=== PATIENT | male | born 1935 | race Hispanic/Latino ===

== ENCOUNTER 2017-02-24 14:43 | Emergency (ER) | payer MEDICARE, BC ==
[2017-02-24 14:44] VITALS: BMI 23.3
[2017-02-24 15:12] VITALS: RESP 18; TEMP 98.6
[2017-02-24 15:53] LABS: BASO # 0.05 K/mm3 (0.0-2.0); BASO % 0.7 % (0.0-3.0); EOS # 0.1 (0.0-0.7); EOS % 1.9 % (1.5-5.0); GRAN # 5.74 (1.4-6.5); GRAN % 77.6 % (50.0-68.0); HEMATOCRIT 34.4 % (42.0-52.0); LYMPH # 0.9 (1.2-3.4); LYMPH % 12.4 % (22.0-35.0); MEAN CELL VOLUME 100.9 fl (80.0-105.0); MEAN CORPUSCULAR HEMOGLOBIN 31.7 pg (25.0-35.0); MEAN CORPUSCULAR HGB CONC 31.4 g/dl (31.0-37.0); MEAN PLATELET VOLUME 9.4 fl (7.0-11.0); MONO # 0.6 (0.1-0.6); MONO % 7.4 % (1.0-6.0); RED CELL DISTRIBUTION WIDTH 15.1 % (11.5-14.5); WHITE BLOOD COUNT 7.4 10^3/ul (4.5-11.0)
[2017-02-24 15:55] LABS: ALB/GLOB RATIO 1.4 (1.1-1.8); BILIRUBIN,TOTAL 0.7 mg/dL (0.2-1.3); CALCIUM 9.8 mg/dL (8.4-10.5); MAGNESIUM 2.1 mg/dL (1.7-2.2); POTASSIUM 3.8 mmol/L (3.6-5.0); TOTAL PROTEIN 6.8 g/dL (5.8-8.3)
--- NOTE | 2017-02-24 16:52 | ED PDOC ---
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 He denies numbness, weakness or tingling in the extremity. No fevers or chills. Denies dizziness, headache, or weakness. No chest pain or shortness of breath. No N/V and abdominal pain. PMD Cardiello (Ivett Louis PA-C) Past Medical History - Provider Review Nursing Documentation Reviewed: Yes - Infectious Disease Hx of Infectious Diseases: None - Tetanus Immunization Tetanus Immunization: Unknown - Cardiac Hx Pacemaker: No - Pulmonary Hx Chronic Obstructive Pulmonary Disease (COPD): Yes - Neurological Hx Paralysis: No - HEENT Other/Comment: BILATERAL [place] - Renal Date of Last Dialysis Treatment: 02/24/17 Hx Renal Failure: Yes (HD (M/W/F)) - Endocrine/Metabolic Hx Diabetes Mellitus Type 1: Yes - Hematological/Oncological Hx Blood Transfusions: No - Integumentary Other/Comment: dry and slightly discolored skin ble, buttocks slightly reddened - Musculoskeletal/Rheumatological Hx Musculoskeletal Disorders: Yes - Gastrointestinal Hx Gastrointestinal Disorders: Yes - Genitourinary/Gynecological Hx Genitourinary Disorders: No Hx Reproductive Disorders: No - Psychiatric Hx Emotional Abuse: No Hx Physical Abuse: No Hx Substance Use: No - Surgical History Hx Open Heart Surgery: Yes - Anesthesia Hx Anesthesia Reactions: Yes (CRYING & CONFUSION) Hx Malignant Hyperthermia: No - Suicidal Assessment Feels Threatened In Home Enviroment: No <Ivett Louis PA-C - Last Filed: 02/24/17 16:45> Family/Social History - Physician Review Nursing Documentation Reviewed: Yes Family/Social History: No Known Family HX Smoking Status: Former Smoker Hx Alcohol Use: No Hx Substance Use: No Hx Substance Use Treatment: No <Ivett Louis PA-C - Last Filed: 02/24/17 16:45> Allergies/Home Meds <Ivett Louis PA-C - Last Filed: 02/24/17 16:45> <Ok Nicolas - Last Filed: 02/25/17 21:35> Allergies/Adverse Reactions: Allergies No Known Allergies Allergy (Verified 02/24/17 15:05) Home Medications: Home Meds Medication Instructions Recorded Confirmed Aspirin [Aspirin Chewable] 81 mg PO Q4XW 07/11/16 02/24/17 Clopidogrel [Plavix] 75 mg PO DAILY 02/24/17 02/24/17 Insulin Glargine, Recombina 24 unit SC ACB 02/24/17 02/24/17 [Lantus] Insulin Lispro-HIGH [HumALOG HIGH] 0 units SC ACB 02/24/17 02/24/17 Isosorbide Mononitrate [Imdur] 60 mg PO DAILY 02/24/17 02/24/17 Renavite 1 tab PO DAILY 02/24/17 02/24/17 Sevelamer Carbonate [Renvela] 800 mg PO TID 02/24/17 02/24/17 Simvastatin [Zocor] 40 mg PO HS 02/24/17 02/24/17 Review of Systems - Review of Systems Constitutional: Normal. absent: Fatigue, Weight Change, Fevers Respiratory: Normal. absent: SOB, Cough, Sputum Cardiovascular: Normal. absent: Chest Pain, Palpitations, Edema Gastrointestinal: Normal. absent: Abdominal Pain, Vomiting, Appetite Changes Musculoskeletal: Normal, Arthralgias. absent: Back Pain, Neck Pain Skin: Normal. absent: Rash, Pruritis, Skin Lesions Neurological: Normal. absent: Headache, Dizziness, Focal Weakness <Ivett Louis PA-C - Last Filed: 02/24/17 16:45> Physical Exam <Ivett Louis PA-C - Last Filed: 02/24/17 16:45> <Ok Nicolas - Last Filed: 02/25/17 21:35> - Physical Exam Narrative Physical Exam (Text): 02/24/17 16:53 GENERAL APPEARANCE: Patient is awake, alert, oriented x 3, in no acute distress. SKIN: Warm, dry; (-) cyanosis. EYES: (-) conjunctival pallor. ENMT: Mucous membranes moist. NECK: (-) tenderness, (-) stiffness, (-) lymphadenopathy, (-) JVD. CHEST AND RESPIRATORY: (-) rash, (-) chest wall tenderness. Lungs: (-) rales , (-) rhonchi, (-) wheezes, (-) rub; breath sounds equal bilaterally. HEART AND CARDIOVASCULAR: (-) irregularity; (-) murmur, (-) gallop, (-) rub. ABDOMEN AND GI: Soft; (-) distention, (-) tenderness, (-) palpable pulsatile mass. EXTREMITIES: (-) tenderness, (+) FROM, (-) deformity; (-) edema, (-) calf tenderness, (+) distal sensation intact, (+) distal pulses. NEURO AND PSYCH: Mental status as above. Cranial nerves grossly intact; strength symmetric. 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 DDx: neuropathy, arthritis, vs tendonitis Plan : - Labs - EKG EKG: SB at 57 bpm, w/ LAD, incomplete LBBB, prolonged QT, (-) acute ST changes, as read by RIZWAN. Lab results reviewed and are stable from prior labs. Based on history, exam and diagnostic results plan will be for outpatient f/u. Patient notified of likely dx of neuropathy. Advsied to follow up with primary care physician in 1-2 days without fail. Return to the emergency room at any time for any new or worsening symptoms. Patient states he fully agrees with and understands discharge instructions. States that he agrees with the plan and disposition. Verbalized and repeated discharge instructions and plan. I have given the patient opportunity to ask any additional questions. (Ivett Louis PA-C) - Lab Interpretations Lab Results: 02/24/17 15:35 02/24/17 15:35 Lab Results 02/24/17 15:35: Sodium 141, Potassium 3.8, Chloride 97 L, Carbon Dioxide 32, Anion Gap 16, BUN 25 H, Creatinine 3.6 H, Est GFR ( Amer) 20, Est GFR ( Non-Af Amer) 16, Random Glucose 117 H, Calcium 9.8, Magnesium 2.1, Total Bilirubin 0.7, AST 40, ALT 39, Alkaline Phosphatase 123, Total Protein 6.8, Albumin 4.0, Globulin 2.8, Albumin/Globulin Ratio 1.4 02/24/17 15:35: WBC 7.4 D, RBC 3.41 L, Hgb 10.8 L, Hct 34.4 L, MCV 100.9, MCH 31.7, MCHC 31.4, RDW 15.1 H, Plt Count 142, MPV 9.4, Gran % 77.6 H, Lymph % ( Auto) 12.4 L, [place] % (Auto) 7.4 H, Eos % (Auto) 1.9, Baso % (Auto) 0.7, Gran # 5.74, Lymph # 0.9 L, [place] # 0.6, Eos # 0.1, Baso # 0.05 - 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 <Ivett Louis PA-C - Last Filed: 02/24/17 16:45> - PA / COLD MOLDING PRESS OPERATOR / Resident Statement / has reviewed & agrees with the documentation as recorded. <Ok Nicolas - Last Filed: 02/25/17 21:35> Disposition/Present on Arrival - Present on Arrival Any Indicators Present on Arrival: No History of DVT/PE: No History of Uncontrolled Diabetes: No Urinary Catheter: No History of Decub. Ulcer: No History Surgical Site Infection Following: None - Disposition Have Diagnosis and Disposition been Completed?: Yes Disposition Time: 16:45 Patient Plan: Discharge <Ivett Louis PA-C - Last Filed: 02/24/17 16:45> - Present on Arrival Any Indicators Present on Arrival: No History of DVT/PE: No History of Uncontrolled Diabetes: Yes Urinary Catheter: No History of Decub. Ulcer: No History Surgical Site Infection Following: None - Disposition Have Diagnosis and Disposition been Completed?: Yes Patient Plan: Discharge <Ok Nicolas - Last Filed: 02/25/17 21:35> - Disposition Diagnosis: Hand pain, right, Neuropathy Disposition: HOME/ ROUTINE Condition: STABLE Discharge Instructions (ExitCare): Peripheral Neuropathy (ED) Print Language: TELUGU Additional Instructions: Thank you for letting us take care of you today. You were treated for R hand pain, likely neuropathy. The emergency medical care you received today was directed at your acute symptoms. Take tylenol as needed for pain. Return to the Emergency Department if your symptoms worsen, do not improve, or if you have any other problems. Please contact your doctor in 2 days for re-evaluation and follow up. Bring any paperwork you were given at discharge with you along with any medications you are taking to your follow up visit. Our treatment cannot replace ongoing medical care by a primary care provider (PCP) outside of the emergency department. Thank you for allowing the [facility] team to be part of your care today. Referrals: Gustavo Garcia MD [Primary Care Provider] - Follow up with primary Forms: [facility] ([place])
[2017-02-24 18:43] VITALS: BP 156/81; PULSE 83; O2SAT 99
--- NOTE | 2017-02-25 09:44 | CARD ---
APPROVED REPORT EKG Measurement Heart [id number] <Conclusion> Sinus bradycardia Left axis deviation Incomplete left bundle branch block Abnormal QRS-T angle, consider primary T wave abnormality Prolonged QT Abnormal ECG
== END 2017-02-24 18:41 | disposition home or self-care (01) ==
LOC: ED 14:43
DX: M79.641 Pain in right hand (principal); G62.9 Polyneuropathy, unspecified

== ENCOUNTER 2017-06-18 15:03 | Inpatient (IN) | payer MEDICARE, BC ==
[2017-06-18 15:35] VITALS: BMI 26.6
[2017-06-18 16:31] LABS: BASO # 0.05 K/mm3 (0.0-2.0); BASO % 0.7 % (0.0-3.0); EOS # 0.2 (0.0-0.7); EOS % 2.1 % (1.5-5.0); GRAN # 5.09 (1.4-6.5); GRAN % 71.4 % (50.0-68.0); HEMOGLOBIN 12.3 g/dL (14.0-18.0); LYMPH # 1.1 (1.2-3.4); MEAN CELL VOLUME 105.7 fl (80.0-105.0); MEAN CORPUSCULAR HEMOGLOBIN 31.9 pg (25.0-35.0); MEAN CORPUSCULAR HGB CONC 30.2 g/dl (31.0-37.0); MONO # 0.7 (0.1-0.6); MONO % 9.8 % (1.0-6.0); RBC 3.85 10^6/uL (3.5-6.1); RED CELL DISTRIBUTION WIDTH 16.6 % (11.5-14.5); WHITE BLOOD COUNT 7.1 10^3/ul (4.5-11.0)
--- NOTE | 2017-06-18 17:26 | RAD ---
HISTORY: SOB COMPARISON: Chest x-ray performed 09/11/15 TECHNIQUE: Chest, one view. FINDINGS: Examination limited by habitus. LUNGS: Bibasilar atelectasis/ infiltrates. Mild pulmonary venous congestion. Please note that chest x-ray has limited sensitivity for the detection of pulmonary masses. PLEURA: No significant pleural effusion identified. No definite pneumothorax . CARDIOVASCULAR: Cardiomegaly. Atherosclerotic calcifications of the aorta. Median sternotomy wires. OSSEOUS STRUCTURES: Osseous demineralization. Degenerative changes. VISUALIZED UPPER ABDOMEN: Elevation of the right hemidiaphragm. OTHER FINDINGS: None. IMPRESSION: Median sternotomy wires. Cardiomegaly. Bibasilar atelectasis/infiltrates. Mild pulmonary venous congestion.
[2017-06-18 18:01] LABS: ALB/GLOB RATIO 1.2 (1.1-1.8); ALBUMIN 3.7 g/dL (3.0-4.8); CALCIUM 10.3 mg/dL (8.4-10.5)
[2017-06-18 18:12] LABS: TROPONIN I 0.06 ng/mL
--- NOTE | 2017-06-18 18:25 | ED PDOC ---
Arrival/HPI - General Chief Complaint: Shortness Of Breath Time Seen by Provider: 06/18/17 15:37 Historian: Patient - History of Present Illness Narrative History of Present Illness (Text): 06/18/17 16:17 A 81 year old male, whose past medical history includes , presents to the emergency department with no complaints. Per EMS, patient had shortness of breath at dialysis. Patient notes experiencing mild nonproductive cough, but denies any pain or shortness of breath. Also, patient notes having no clue as to why he is here in the ER. No PMD Past Medical History - Provider Review Nursing Documentation Reviewed: Yes - Infectious Disease Hx of Infectious Diseases: None - Tetanus Immunization Tetanus Immunization: Unknown - Cardiac Hx Pacemaker: No - Pulmonary Hx Chronic Obstructive Pulmonary Disease (COPD): Yes - Neurological Hx Paralysis: No - HEENT Other/Comment: BILATERAL [place] - Renal Date of Last Dialysis Treatment: 02/24/17 Hx Renal Failure: Yes (HD (M/W/F)) - Endocrine/Metabolic Hx Diabetes Mellitus Type 1: Yes - Hematological/Oncological Hx Blood Transfusions: No - Integumentary Other/Comment: dry and slightly discolored skin ble, buttocks slightly reddened - Musculoskeletal/Rheumatological Hx Musculoskeletal Disorders: Yes - Gastrointestinal Hx Gastrointestinal Disorders: Yes - Genitourinary/Gynecological Hx Genitourinary Disorders: No Hx Reproductive Disorders: No - Psychiatric Hx Emotional Abuse: No Hx Physical Abuse: No Hx Substance Use: No - Surgical History Hx Open Heart Surgery: Yes - Anesthesia Hx Anesthesia: Yes Hx Anesthesia Reactions: Yes (CRYING & CONFUSION) Hx Malignant Hyperthermia: No - Suicidal Assessment Feels Threatened In Home Enviroment: No Family/Social History - Physician Review Nursing Documentation Reviewed: Yes Family/Social History: No Known Family HX Smoking Status: Former Smoker Hx Alcohol Use: No Hx Substance Use: No Hx Substance Use Treatment: No Allergies/Home Meds Allergies/Adverse Reactions: Allergies No Known Allergies Allergy (Verified 06/18/17 19:15) Home Medications: Home Meds Medication Instructions Recorded Confirmed Aspirin [Aspirin Chewable] 81 mg PO Q4XW 07/11/16 06/18/17 Clopidogrel [Plavix] 75 mg PO DAILY 02/24/17 06/18/17 Insulin Glargine, Recombina 24 unit SC ACB 02/24/17 06/18/17 [Lantus] Insulin Lispro-HIGH [HumALOG HIGH] 0 units SC ACB 02/24/17 06/18/17 Isosorbide Mononitrate [Imdur] 60 mg PO DAILY 02/24/17 06/18/17 Renavite 1 tab PO DAILY 02/24/17 06/18/17 Sevelamer Carbonate [Renvela] 800 mg PO TID 02/24/17 06/18/17 Simvastatin [Zocor] 40 mg PO HS 02/24/17 06/18/17 Review of Systems - Physician Review All systems were reviewed & negative as marked: Yes - Review of Systems Constitutional: absent: Other (patient denies of any pain) Respiratory: absent: SOB Physical Exam Vital Signs Reviewed: Yes Vital Signs Temp Pulse Resp BP Pulse Ox 06/18/17 21:20 71 18 131/72 98 06/18/17 20:20 71 20 115/54 L 99 06/18/17 19:40 72 20 120/65 100 06/18/17 19:00 71 18 146/77 96 06/18/17 17:04 71 18 147/79 98 06/18/17 15:50 20 94 L 06/18/17 15:34 97.8 F 70 18 114/63 95 Temperature: Afebrile Blood Pressure: Normal Pulse: Regular Respiratory Rate: Normal Appearance: Positive for: Well-Appearing Pain Distress: None Mental Status: Positive for: Alert and Oriented X 3 - Systems Exam Head: Present: Atraumatic, Normocephalic Pupils: Present: PERRL Extroacular Muscles: Present: EOMI Conjunctiva: Present: Normal Mouth: Present: Moist Mucous Membranes Neck: Present: Normal Range of Motion Respiratory/Chest: Present: Rales (basis b/l) Cardiovascular: Present: Regular Rate and Rhythm, Normal S1, S2. No: Murmurs Abdomen: Present: Normal Bowel Sounds. No: Tenderness, Distention, Peritoneal Signs Back: Present: Normal Inspection Upper Extremity: Present: Normal Inspection. No: Cyanosis, Edema Lower Extremity: Present: Edema Neurological: Present: GCS=15, CN II-XII Intact, Speech Normal Skin: Present: Warm, Dry, Normal Color. No: Rashes Psychiatric: Present: Alert, Oriented x 3, Normal Insight, Normal Concentration Medical Decision Making ED Course and Treatment: 06/18/17 16:20 Impression: 81 year old male with no complaints. Physical exam shows rales at basis b/l and lower extremity edema. Plan: -- EKG -- Chest X-ray -- Labs -- Rapid Flu Test -- Reassess and disposition Prior Visits: Notes and results from previous visits were reviewed. Patient was last seen in the emergency department on 02/24/2017 for crampy pain to the right hand. Patient was d/c home. Progress Notes: 06/18/2017 17:24 Chest X-ray IMPRESSION: Median sternotomy wires. Cardiomegaly. Bibasilar atelectasis/infiltrates. Mild pulmonary venous congestion. Dictator: Sloane Monzon MD - Lab Interpretations Lab Results: 06/18/17 16:20 06/18/17 16:20 Lab Results 06/18/17 16:20: Influenza Typ A,B (EIA) Negative for flu a/b 06/18/17 16:20: Sodium 140, Potassium 4.4, Chloride 99, Carbon Dioxide 28, Anion Gap 18, BUN 17, Creatinine 3.3 H, Est GFR ( Amer) 22, Est GFR (Non- Af Amer) 18, Random Glucose 151 H, Calcium 10.3, Total Bilirubin 0.8, AST 32, ALT 43, Alkaline Phosphatase 143 H, Lactate Dehydrogenase 554, Total Creatine Kinase 66, Troponin I 0.06 D, NT-Pro-B Natriuret Pep 22408 H, Total Protein 6.7 , Albumin 3.7, Globulin 3.1, Albumin/Globulin Ratio 1.2 06/18/17 16:20: WBC 7.1, RBC 3.85, Hgb 12.3 L, Hct 40.7 L, MCV 105.7 H D, MCH 31.9, MCHC 30.2 L, RDW 16.6 H, Plt Count 113 L, MPV 10.0, Gran % 71.4 H, Lymph % (Auto) 16.0 L, [place] % (Auto) 9.8 H, Eos % (Auto) 2.1, Baso % (Auto) 0.7, Gran # 5.09, Lymph # 1.1 L, [place] # 0.7 H, Eos # 0.2, Baso # 0.05 I have reviewed the lab results: Yes - RAD Interpretation Radiology Orders: 06/18/17 15:50 CHEST PORTABLE [RAD] Stat - Medication Orders Current Medication Orders: Discontinued Medications Ceftriaxone Sodium (Rocephin 1 Gram Ivpb) 1 gm in 100 mls @ 200 mls/hr IVPB STAT STA PRN Reason: Protocol Stop: 06/18/17 19:11 Last Admin: 06/18/17 19:08 Dose: 200 mls/hr eMAR Start Stop Document 06/18/17 19:08 MEAL ATTENDANT (Rec: 06/18/17 19:09 MEAL ATTENDANT [id number]) Intravenous Solution Start Date 06/18/17 Start Time 19:09 End Date 06/18/17 End time 19:39 Total Infusion Time 30 Azithromycin (Zithromax 500mg In Ns) 500 mg in 250 mls @ 167 mls/hr IVPB STAT STA PRN Reason: Protocol Stop: 06/18/17 20:11 Last Admin: 06/18/17 21:31 Dose: 167 mls/hr eMAR Start Stop Document 06/18/17 21:31 YP (Rec: 06/18/17 21:31 YP [id number]) Intravenous Solution Start Date 06/18/17 Start Time 21:31 End Date 06/18/17 End time 23:01 Total Infusion Time 90 - Scribe Statement The provider has reviewed the documentation as recorded by the Carolyn Meehan Provider Scribe Attestation: All medical record entries made by the Scribaj were at my direction and personally dictated by me. I have reviewed the chart and agree that the record accurately reflects my personal performance of the history, physical exam, medical decision making, and the department course for this patient. I have also personally directed, reviewed, and agree with the discharge instructions and disposition. Disposition/Present on Arrival - Present on Arrival Any Indicators Present on Arrival: No History of DVT/PE: No History of Uncontrolled Diabetes: Yes Urinary Catheter: No History of Decub. Ulcer: No History Surgical Site Infection Following: None - Disposition Have Diagnosis and Disposition been Completed?: Yes Diagnosis: Community acquired pneumonia Disposition: HOSPITALIZED Disposition Time: 18:10 Condition: STABLE
[2017-06-18] MEDS ORDERED: Azithromycin 500MG/NS 250ml 500 MG/250 ML BAG IVPB STA (18:42)
[2017-06-18] MEDS ORDERED: cefTRIAXone 1 gm 1 GM/100 ML BAG IVPB STA (18:42)
--- NOTE | 2017-06-18 21:32 | CARD ---
APPROVED REPORT EKG Measurement Heart [id number] <Conclusion> Atrial Flutter with 3:1 conduction Left axis deviation Left bundle branch block Abnormal ECG
[2017-06-19] MEDS ORDERED: Influenza Vaccine 60 mcg/0.5 mL SYR (4YR UP) IM ONE (05:35)
[2017-06-19] MEDS ORDERED: Pneumococcal 23-Valent Vaccine IM ONE (06:01)
[2017-06-19 09:10] LABS: BASO # 0.04 K/mm3 (0.0-2.0); BASO % 0.5 % (0.0-3.0); EOS # 0.1 (0.0-0.7); EOS % 1.5 % (1.5-5.0); GRAN # 6.23 (1.4-6.5); GRAN % 75.3 % (50.0-68.0); HEMOGLOBIN 12.1 g/dL (14.0-18.0); LYMPH # 1.1 (1.2-3.4); LYMPH % 13.5 % (22.0-35.0); MEAN CELL VOLUME 108.5 fl (80.0-105.0); MEAN CORPUSCULAR HGB CONC 29.5 g/dl (31.0-37.0); MEAN PLATELET VOLUME 11.7 fl (7.0-11.0); MONO # 0.8 (0.1-0.6); MONO % 9.2 % (1.0-6.0); RBC 3.78 10^6/uL (3.5-6.1); RED CELL DISTRIBUTION WIDTH 16.7 % (11.5-14.5); WHITE BLOOD COUNT 8.3 10^3/ul (4.5-11.0)
[2017-06-19] MEDS ORDERED: Iohexol 350 MG/100 ML VIAL ONE (09:16)
[2017-06-19 09:26] LABS: ALB/GLOB RATIO 1.2 (1.1-1.8); ALBUMIN 3.8 g/dL (3.0-4.8); CALCIUM 10.3 mg/dL (8.4-10.5); MAGNESIUM 2.3 mg/dL (1.7-2.2)
[2017-06-19] MEDS ORDERED: Cefepime (Maxipime) 1 g Inj IVPB SCH (09:45)
[2017-06-19] MEDS ORDERED: Azithromycin 500MG/NS 250ml 500 MG/250 ML BAG IVPB SCH (10:00)
[2017-06-19] MEDS: Insulin Detemir 100 units/ml Vial (Levemir) SC SCH (10:00)
[2017-06-19] MEDS ORDERED: cefTRIAXone 1 gm 1 GM/100 ML BAG IVPB SCH (10:00)
--- NOTE | 2017-06-19 10:25 | CT ---
CT chest with IV contrast Indication: Abnormal chest x-ray Technique: Contiguous axial images were obtained through the chest with intravenous contrast enhancement. Sagittal and coronal reconstructions were generated and reviewed. This CT exam was performed using 1 or more of the following dose reduction techniques: Automated exposure control, adjustment of the MAA and/or kV according to patient size, and/or use of iterative reconstruction technique. IV Contrast: 100 mL Omnipaque 350 Radiation dose (DLP): 628.01 MGy-cm. Comparison: Chest x-ray performed 06/18/17, CT chest without contrast performed 08/19/15 Findings: Visualized portions of the inferior thyroid gland appear unremarkable. The mediastinal and hilar vascular structures appear within normal limits. Median sternotomy wires. Cardiomegaly. Dense coronary artery calcifications. Mediastinal and prevascular adenopathy measuring up to 2.1 cm in short axis (right pretracheal). No large central or segmental pulmonary embolus evident. Small bilateral pleural effusions and associated consolidations. Diffuse interstitial markings/thickening. No pneumothorax. Limited visualization of the upper abdomen: Cholelithiasis. Small perihepatic ascites. Sub cm mesenteric lymph nodes, nonspecific. Bilateral gynecomastia. Osseous demineralization. Degenerative changes. Impression: Cardiomegaly. Dense coronary artery calcifications. Mediastinal and prevascular adenopathy measuring up to 2.1 cm in short axis (right pretracheal). Small bilateral pleural effusions and associated consolidations. Diffuse interstitial markings/thickening ; correlate clinically. Limited visualization of the upper abdomen: Cholelithiasis. Small perihepatic ascites. Sub cm mesenteric lymph nodes, nonspecific. Bilateral gynecomastia.
[2017-06-19] MEDS: Cefepime 1gm in NS 100ml 1 GM/100 ML BAG IVPB SCH (11:16)
[2017-06-19] MEDS: guaiFENesin 600 mg ER Tab PO SCH ×2 (11:16→18:12)
--- NOTE | 2017-06-19 13:02 | HP ---
HISTORY OF PRESENT ILLNESS: An 81-year-old white male with history of end-stage renal disease, hypertension, COPD. The patient has had increasing shortness of breath and cough over the last 3 to 4 weeks, however, complaining with severe shortness of breath after dialysis treatment, was sent to the ER, was found to have possible pneumonia versus effusion and possible mass, severe COPD. The patient is afebrile. White count was normal, however, he was desaturating into the 80s in the emergency room, and he was admitted to the hospital. PHYSICAL EXAMINATION GENERAL: The patient is a well-developed, but thin white male with kyphoscoliosis, and visibly short of breath. The patient is awake and alert. He is hard of hearing. CHEST: Shows rhonchi and rales in all lung figueroa. Mild wheezing. HEART: Regular sinus rhythm. ABDOMEN: Benign. EXTREMITIES: Without cyanosis, clubbing, or edema. IMPRESSION: Pneumonia versus post obstructive changes, possible mass. CT is ordered. Intravenous antibiotics, bronchodilators and Pulmonary consult. Gustavo Garcia MD
[2017-06-19] MEDS ORDERED: Vancomycin 1gm in NS 250ml 1 GM/250 ML BAG IVPB STA (13:07)
[2017-06-19] MEDS: Insulin Lispro (HUMAlog) HIGH Coverage SC SCH (17:16)
[2017-06-19] MEDS: Multivitamin Vitamin B Complex (Nephro-Vite) Tab PO SCH (18:12)
[2017-06-19] MEDS: MethylPREDNISolone 40 mg Vial IVP SCH ×2 (18:19→23:38)
[2017-06-19] MEDS: Albuterol-Ipratrop 3 mg / 0.5 (3 ml) UD IH SCH (20:22)
[2017-06-19] MEDS: Acetylcysteine 20% Inhal Soln (4ml) IH SCH (20:22)
--- NOTE | 2017-06-19 23:48 | CON ---
DATE: 06/19/2017 The patient is seen earlier today in 573, bed 1. CHIEF COMPLAINT: Weakness times one day. HISTORY OF PRESENT ILLNESS: This is an 81-year-old male with past medical history significant for end-stage renal disease, on hemodialysis; hypertension; diabetes; coronary artery disease; chronic obstructive lung disease; smoker; and history of coronary artery bypass graft, admitted to the emergency room with a diagnosis of pneumonia, and Infectious Disease consultation requested. The patient had low-grade fevers. No chills. He has mild cough. No chest pain. Cough is nonproductive. No abdominal pain, diarrhea, or constipation. No dysuria or frequency. No headaches. PAST MEDICAL HISTORY: Significant for end-stage renal disease, on hemodialysis; chronic obstructive lung disease; hypertension; diabetes; coronary artery disease; and smoker. PAST SURGICAL HISTORY: Significant for coronary artery bypass graft. ALLERGIES: THE PATIENT HAS NO KNOWN ALLERGIES. MEDICATIONS: Include Zocor, Renvela, metoprolol, isosorbide, insulin, clopidogrel, and aspirin. PHYSICAL EXAMINATION: VITAL SIGNS: The patient is in bed with a temperature of 98, heart rate of 71, respiratory rate of 20, and blood pressure is 126/70. HEENT: Unremarkable. NECK: Supple. LUNGS: Have decreased breath sounds. HEART: Normal S1 and S2. ABDOMEN: Soft and nontender. LABORATORY DATA: The patient had a chest x-ray which revealed mediastinal sternotomy wires were seen, vascular congestion, atelectasis versus infiltrates. The patient also had a CAT scan of the chest which showed a small bilateral pleural effusion and associated consolidation, diffuse interstitial markings. The patient had an EKG, QTc is 485. ASSESSMENT AND PLAN: This is an 81-year-old male, end-stage renal disease, on hemodialysis; chronic obstructive lung disease; hypertension; diabetes; coronary artery disease; long time smoker, admitted to the emergency room with lots of weakness and shortness and breath, found to have positive bilateral healthcare-associated possible gram-positive cocci, possible gram-negative pernell pneumonia in a patient who is on hemodialysis, and we will treat the patient with IV vancomycin x1 dose, Maxipime 1 gm q.24, and doxycycline. We will order blood cultures, urine cultures, sputum cultures, and procalcitonin. We will make further recommendations. He will need 4 to 7 days of antibiotics. Leland MD [facility] # [id number]
[2017-06-20] MEDS: Acetylcysteine 20% Inhal Soln (4ml) IH SCH ×5 (01:22→17:44)
[2017-06-20] MEDS: Albuterol-Ipratrop 3 mg / 0.5 (3 ml) UD IH SCH ×5 (01:22→17:44)
[2017-06-20] MEDS: Insulin Lispro (HUMAlog) HIGH Coverage SC SCH ×4 (01:47→17:24)
--- NOTE | 2017-06-20 02:28 | CON ---
DATE: 06/19/2017 PULMONARY CONSULTATION REFERRING PHYSICIAN: Dr. Garcia. REASON FOR CONSULT: Chronic obstructive lung disease, cough, shortness of breath, pneumonia. HISTORY OF PRESENT ILLNESS: This is an 81-year-old gentleman with past medical history significant for chronic obstructive lung disease recently stopped smoking, renal failure, dialysis dependent while at dialysis developed increased shortness of breath but been short of breath for last few days with cough, sputum production. No hemoptysis, no hematemesis, no hematuria. No diarrhea reported. Denying any severe headache, no shaking chills. PAST MEDICAL HISTORY: Chronic obstructive lung disease, interstitial infiltrate, renal failure, dialysis dependent diabetes, history of open heart surgery. ALLERGIES: NONE KNOWN. SOCIAL HISTORY: Recently stopped smoking. Denied any alcohol use. FAMILY HISTORY: No significant cardiopulmonary disease reported. MEDICATIONS: He is on Ecotrin 81 mg daily, insulin coverage, Imdur 60 mg daily, Levemir 24 units subcu daily, Lipitor 20 mg at bedtime, metoprolol tartrate 25 mg twice a day, cefepime 1 gm IV q.24h., Mucinex LA 600 mg twice a day, Nephro vitamins daily, Plavix 75 mg daily, Renagel 800 mg three times a day, Solu-Medrol 40 mg q.6 hour added by me. REVIEW OF SYSTEMS: Not much headache, no rhinitis, but has a cough, sputum production. No chest pain. No abdominal pain. No dysuria. No leg pain or leg swelling. PHYSICAL EXAMINATION: GENERAL: Lying in the bed, has cough and shortness of breath, daughter is bedside. VITAL SIGNS: Temperature is 99, heart rate is 98, respiratory rate is 20, blood pressure 153/78, pulse ox 98% on 2 liters nasal cannula. HEENT: Moist mucous membranes. Crowded airway. Mallampati score is IV. NECK: Supple. No JVD. LUNGS: Have bilateral crackles, scattered rhonchi. HEART: S1 and S2. ABDOMEN: Soft, nontender. No organomegaly. EXTREMITIES: There is not much edema. NEUROLOGICAL: Awake, alert, very hard of hearing. Follows simple commands. LABORATORY DATA: Shows hemoglobin 12.1, hematocrit 41.0, WBC 8.3, platelet count is 147. Sed rate is 40. Sodium 140, potassium 5.1, chloride 98, bicarbonate 29, BUN 23, creatinine 4.5, glucose 166, calcium 10.3, phosphorus 4.2, magnesium 2.3, AST 26, ALT 35, alk phos is 134. C-reactive protein more than 15. Albumin is 3.8, procalcitonin 0.21. Influenza antibodies A and B are negative. Has a CAT scan of the chest done today, which shows cardiomegaly, dense coronary calcification, mediastinum perivascular adenopathy, 2.1 cm short axis, small bilateral pleural effusion associated consolidation, diffusion interstitial markings or thickening, cholelithiasis, small perihepatic ascites. IMPRESSION AND PLAN: Chronic obstructive lung disease with chronic interstitial infiltrate, hilar lymphadenopathy, renal failure dialysis dependent, diabetes, heart disease. We will suggest getting echocardiogram, reassess LV and RV function with pulmonary hypertension. There may be a component of sleep apnea syndrome, need to rule out oropharyngeal dysphagia. Spoke to the patient's daughter at bedside. All the questions answered. Continue antibiotics, add inhale an IV bronchodilator. Speech therapy evaluation. We will get proBNP and procalcitonin in the morning. Continue supplemental oxygen, gastric prophylaxis. SCD to lower extremities. Thank you and we will follow with you. Kathirne Mckeon MD
[2017-06-20] MEDS: MethylPREDNISolone 40 mg Vial IVP SCH ×3 (06:06→17:36)
[2017-06-20 11:04] LABS: GRAN # 6.81 (1.4-6.5); GRAN % 93.8 % (50.0-68.0); LYMPH # 0.4 (1.2-3.4); LYMPH % 6.1 % (22.0-35.0); MEAN CELL VOLUME 105.4 fl (80.0-105.0); MEAN CORPUSCULAR HEMOGLOBIN 31.4 pg (25.0-35.0); MEAN CORPUSCULAR HGB CONC 29.8 g/dl (31.0-37.0); MEAN PLATELET VOLUME 10.6 fl (7.0-11.0); MONO % 0.1 % (1.0-6.0); PLATELET COUNT 104 10^3/uL (120.0-450.0); RED CELL DISTRIBUTION WIDTH 16.5 % (11.5-14.5); WHITE BLOOD COUNT 7.3 10^3/ul (4.5-11.0)
--- NOTE | 2017-06-20 11:14 | PN ---
DATE: SUBJECTIVE: An 81-year-old white male on end-stage renal disease on hemodialysis, COPD, and CAD. The patient admitted with severe cough, shortness of breath, and congestion. CT shows chronic changes and pleural effusions, but no absolute mass. White count is 8.3. PHYSICAL EXAMINATION: GENERAL: The patient had a slight hallucinogenic episode this morning and refused hemodialysis, but he is going to hemodialysis today. VITAL SIGNS: Temperature is 97.8 and blood pressure is 156/66. CHEST: Shows rhonchi and rales in all lungs field anterior and posterior. HEART: Regular sinus rhythm. EXTREMITIES: No cyanosis, clubbing or edema. NEUROLOGIC: The patient is more awake and alert today is better. PLAN: Plan is to continue IV antibiotics, bronchodilator, and steroids. Gustavo Garcia MD
[2017-06-20 11:20] LABS: ALB/GLOB RATIO 1.2 (1.1-1.8); ALBUMIN 3.3 g/dL (3.0-4.8); CALCIUM 9.8 mg/dL (8.4-10.5); MAGNESIUM 2.2 mg/dL (1.7-2.2)
[2017-06-20 11:33] LABS: LYMPHOCYTE 8 % (22.0-35.0); NEUTROPHIL 92 % (50.0-70.0); PLATELET ESTIMATE NORMAL (NORMAL)
[2017-06-20] MEDS: Insulin Detemir 100 units/ml Vial (Levemir) SC SCH (15:09)
[2017-06-20] MEDS: Multivitamin Vitamin B Complex (Nephro-Vite) Tab PO SCH (15:56)
[2017-06-20] MEDS: Cefepime 1gm in NS 100ml 1 GM/100 ML BAG IVPB SCH (16:00)
[2017-06-20] MEDS: guaiFENesin 600 mg ER Tab PO SCH ×2 (16:00→17:24)
--- NOTE | 2017-06-20 17:59 | CP.PCM.PN ---
Subjective - Date & Time of Evaluation Date of Evaluation: 06/20/17 Time of Evaluation: 12:45 - Subjective Subjective: Comfortable, no fevers. Objective - Vital Signs/Intake and Output Vital Signs (last 24 hours): Temp Pulse Resp BP Pulse Ox 99.1 F 60 18 153/78 H 97 06/19/17 16:00 06/20/17 01:22 06/19/17 16:00 06/19/17 17:14 06/20/17 01:22 Intake and Output: 06/19/17 06/20/17 18:59 06:59 Intake Total 240 Balance 240 - Medications Medications: Current Medications Acetylcysteine (Acetylcysteine 20%) 4 ml IH [id number] [facility] Last Admin: 06/20/17 01:22 Dose: 4 ml Albuterol/Ipratropium (Duoneb 3 Mg/0.5 Mg (3 Ml) Ud) 3 ml IH [id number] [facility] Last Admin: 06/20/17 01:22 Dose: 3 ml Aspirin (Ecotrin) 81 mg PO DAILY [facility] Last Admin: 06/19/17 18:12 Dose: 81 mg Atorvastatin Calcium (Lipitor) 20 mg PO DIN [facility] Last Admin: 06/19/17 17:13 Dose: 20 mg Clopidogrel Bisulfate (Plavix) 75 mg PO DAILY [facility] Last Admin: 06/19/17 17:13 Dose: 75 mg Doxycycline Hyclate (Doryx) 100 mg PO Q12 [facility] PRN Reason: Protocol Last Admin: 06/19/17 21:55 Dose: 100 mg Guaifenesin (Mucinex La) 600 mg PO BID [facility] Last Admin: 06/19/17 18:12 Dose: 600 mg Cefepime HCl (Maxipime 1gm) 1 gm in 100 mls @ 200 mls/hr IVPB Q24H [facility] Last Admin: 06/19/17 11:16 Dose: 200 mls/hr Insulin Detemir (Levemir) 24 unit SC DAILY [facility] Last Admin: 06/19/17 10:00 Dose: Not Given Insulin Human Lispro (Humalog High) 0 units SC ACHS [facility] PRN Reason: Protocol Last Admin: 06/20/17 01:47 Dose: Not Given Isosorbide Mononitrate (Imdur) 60 mg PO DAILY [facility] Last Admin: 06/19/17 17:13 Dose: 60 mg Methylprednisolone (Solu-Medrol) 40 mg IVP Q6 [facility] Last Admin: 06/20/17 06:06 Dose: 40 mg Metoprolol Tartrate (Lopressor) 25 mg PO BRKDIN [facility] Last Admin: 06/19/17 17:14 Dose: 25 mg Sevelamer HCl (Renagel) 800 mg PO TID [facility] Last Admin: 06/19/17 21:55 Dose: 800 mg Vitamin B Complex/Vit C/Folic Acid (Nephro-Jarret) 1 tab PO DAILY [facility] Last Admin: 06/19/17 18:12 Dose: 1 tab - Labs Labs: 06/19/17 08:44 06/19/17 08:55 - Constitutional Appears: Non-toxic - Head Exam Head Exam: NORMAL INSPECTION - ENT Exam ENT Exam: Mucous Membranes Moist - Respiratory Exam Respiratory Exam: Decreased Breath Sounds - Cardiovascular Exam Cardiovascular Exam: +S1, +S2 - GI/Abdominal Exam GI & Abdominal Exam: Soft. absent: Tenderness Assessment and Plan - Assessment and Plan (Free Text) Plan: Assessment sepsis due to bilateral HCAP with possible gram positive cocci and/or gram negative bacilli S/P Severe sepsis probably secondary to HCAPi, clinically improved ESRD on HD HTN DM CAD S/P CABG COPD significant smoking history Plan given a dose of IV Vanco and continue Cefepime and Doxycycline day 2 follow up final culture results will continue to monitor clinically
--- NOTE | 2017-06-20 22:51 | CON ---
DATE: 06/20/2017 REASON FOR CONSULTATION: Shortness of breath, cough, need for dialysis. HISTORY OF PRESENTING ILLNESS: This is an 81-year-old male, known to me from outpatient hemodialysis, was sent to the emergency room after dialysis on Friday because of severe cough, shortness of breath, restlessness, agitation. In the emergency room, the patient was found to be hemodynamically stable. He had a CT scan of his chest which showed bilateral pneumonia, bilateral pleural effusions, diffuse interstitial markings. The patient is being treated with p.o., doxycycline 100 q.12, cefepime 1 gm daily. Consultation is requested for need for dialysis. PAST MEDICAL AND SURGICAL HISTORY: NIDDM, hypertension, ESRD, CAD, CHF, anemia of chronic kidney disease, secondary hyperparathyroidism, dementia. FAMILY HISTORY: Hypertension. SOCIAL HISTORY: No smoking, no alcohol use, no IV drug abuse. ALLERGIES: NO KNOWN DRUG ALLERGIES. CURRENT MEDICATIONS: Doxycycline 100 q.12 hours, DuoNeb, aspirin, Imdur 60, insulin, Lipitor 20, Lopressor 25 b.i.d., cefepime 1 gm daily, guaifenesin 600 b.i.d., Plavix 75, Renagel 800 t.i.d., Solu-Medrol 40 IV q.6. REVIEW OF SYSTEMS: All systems are reviewed, pertinent positives as mentioned in the history of presenting illness, rest unremarkable. PHYSICAL EXAMINATION: GENERAL: Elderly male, lying in bed in the dialysis unit. VITAL SIGNS: Blood pressure 156/66, heart rate 78, respiratory rate 20, and temperature 97.8. HEENT: Normocephalic, atraumatic, positive pallor, no icterus. NECK: Supple, no JVD. LUNGS: Bilateral equal air entry, bilateral equal expansion, decreased air entry at the bases. CARDIAC: S1 and S2, regular rate and rhythm, no murmur, no rub. ABDOMEN: Obese, distended, soft, nontender, bowel sounds present. EXTREMITIES: 3+ pitting edema of the lower extremities. INTAKE AND OUTPUT: Not charted. LABORATORY DATA: WBC 7.3, hemoglobin 11, hematocrit 36, platelets 104. Sodium 134, potassium 5.5, chloride 96, CO2 of 26, BUN 39, creatinine 5.9, glucose 339, calcium 9.8, phosphorus 5.0, magnesium 2.2, albumin 3.3. Influenza A and B EIA negative. ASSESSMENT: 1. Bilateral pneumonia. 2. Decompensated congestive heart failure. 3. Volume overload. 4. Cic-icllciy-jnhmbnxnd diabetes mellitus. 5. Hypertension. 6. Coronary artery disease. 7. Anemia of chronic kidney disease. PLAN: 1. The patient had stable dialysis today, 3 kg of fluid was removed. 2. The patient is still hypervolemic, we will arrange for him to have dry ultrafiltration tomorrow. 3. Continue antibiotics as per ID recommendations. 4. Monitor fingersticks. 5. Continue phosphate binders. Hyun Galarza MD
[2017-06-21] MEDS: Albuterol-Ipratrop 3 mg / 0.5 (3 ml) UD IH SCH ×4 (01:06→21:00)
[2017-06-21] MEDS: Acetylcysteine 20% Inhal Soln (4ml) IH SCH ×4 (01:06→21:00)
--- NOTE | 2017-06-21 01:14 | PN ---
DATE: 06/20/2017 REFERRING PHYSICIAN: Dr. Garcia. SUBJECTIVE: He is sitting up in the bed, still short of breath, cough, unable to clear pulmonary secretion, still waiting for speech therapy evaluation, tolerated BiPAP well. No nausea, no vomiting, no diarrhea, no leg pain or leg swelling. OBJECTIVE: GENERAL: Idtu-df-jfmtnzco distress secondary to cough and shortness of breath. VITAL SIGNS: Temperature is 98, heart rate is 69, respiratory rate is 20, blood pressure 133/61, pulse oximetry is 96% on nasal cannula. HEENT: Small oral cavity. Crowded airway. NECK: Supple. No JVD. LUNGS: Bilateral crackles and rhonchi. HEART: S1 and S2. ABDOMEN: Soft, nontender, no organomegaly. EXTREMITIES: There is no edema. NEUROLOGICAL: Awake, alert, follows simple commands. MEDICATIONS: Mucomyst 20% inhaled q. 6 hours, doxycycline 100 mg twice a day, DuoNeb q. 6 hours, Ecotrin 81 mg daily, insulin coverage, Imdur 60 mg daily, Levemir 24 subcutaneous daily, Lipitor 20 mg daily, metoprolol tartrate 25 mg twice a day, cefepime 1 gm IV q. 24 hours, Mucinex LA 600 mg twice a day, Nephro-Jarret vitamins daily, Plavix 75 mg daily, Renagel 800 mg three times a day, Solu-Medrol 40 mg q. 6 hours. LABORATORY DATA: Shows hemoglobin 11.0, hematocrit 36.9, WBC is 7.3, platelet is 104, sed rate is 40. Sodium 140, potassium 5.0, chloride 96, bicarbonate 26, BUN 39, creatinine 5.9, glucose 283, calcium is 9.8, phosphorus is 5.0, magnesium 2.2, AST 25, ALT 34, alkaline phosphatase is 114, albumin is 3.3, procalcitonin is 0.28. Influenza A and B is negative. Microbiology: Blood cultures, sputum cultures so far there is no growth. IMPRESSION AND PLAN: Chronic obstructive lung disease with chronic interstitial infiltrate, hilar adenopathy, renal failure dialysis dependent, diabetes, heart disease. Spoke to the nursing staff. Still waiting for Speech Therapy to evaluate, also waiting for echo to get right ventricular and left ventricular function. For now, keep head elevated at 45 degrees, continue intravenous inhaled bronchodilator, continue antibiotics, encourage BiPAP use at night. Gastric prophylaxis. Sequential compression device to lower extremities. Spoke to Speech Therapy. She will see the patient in the morning. Thank you, and we will follow with you. Kathrine Mckeon MD
[2017-06-21] MEDS: Insulin Lispro (HUMAlog) HIGH Coverage SC SCH (07:06)
[2017-06-21] MEDS: MethylPREDNISolone 40 mg Vial IVP SCH ×3 (07:07→12:14)
--- NOTE | 2017-06-21 11:59 | PN ---
DATE: An 81-year-old white male, who was sent from dialysis because of shortness of breath, asthmatic bronchitis versus bronchial pneumonia. The patient is afebrile. Vital sings are stable. He is on dialysis today. His blood sugars are elevated because of the steroids. He is receiving IV antibiotics, bronchodilators, and steroids. His lungs show some rhonchi bilaterally, but improved. He is less short of breath, less cough. Plan is to continue IV antibiotics and dialysis, and to start to taper steroids. Gustavo Garcia MD
[2017-06-21] MEDS: Insulin Reg-LOW-Coverage SC SCH ×3 (12:14→22:01)
[2017-06-21] MEDS: guaiFENesin 600 mg ER Tab PO SCH ×2 (12:18→17:44)
[2017-06-21] MEDS: Cefepime 1gm in NS 100ml 1 GM/100 ML BAG IVPB SCH (12:19)
[2017-06-21] MEDS: Multivitamin Vitamin B Complex (Nephro-Vite) Tab PO SCH (12:39)
--- NOTE | 2017-06-21 15:30 | CARD ---
APPROVED REPORT EXAM: Two-dimensional and M-mode echocardiogram with Doppler and color Doppler. INDICATION 2D DIMENSIONS Left Atrium (2D)3.9 (1.6-4.0cm)IVSd1.5 (0.7-1.1cm) LVDd5.0 (3.9-5.9cm)LVOT Diameter2.1 (1.8-2.4cm) PWd0.9 (0.7-1.1cm)LVDs4.5 (2.5-4.0cm) FS (%) 9.7 %LVEF (%)21.6 (>50%) M-Mode DIMENSIONS Left Atrium (MM)3.70 (2.5-4.0cm)Aortic Root3.80 (2.2-3.7cm) Aortic Cusp Exc.1.30 (1.5-2.0cm) Aortic Valve AoV Peak Eushgpaj165.0cm/sAoV VTI39.8cmAO Peak GR.13mmHg LVOT Peak Ubtmnpay08.4cm/sLVOT VTI13.90cmAO Mean GR.7mmHg HESHAM (VMAX)1.82iz5MVI (VTI)1.15bu2KS P 1/2 Dmci761wk Mitral Valve MV E Qpicuehj226.0cm/sMV A Oxzgnulo71.8cm/sE/A ratio2.0 TDI Lateral E' Peak V8.27cm/sMedial E' Peak V3.61cm/sE/Lateral E'13.7 E/Medial E'31.3 Tricuspid Valve TR Peak Ukhftewx801so/sRAP BIMUDPAZ85tmCsLO Peak Gr.62mmHg RVOZ05hsAb LEFT VENTRICLE The left ventricle is normal size. There is moderate concentric left ventricular hypertrophy. The systolic function is severely impaired. There is global hypokinesis of the left ventricle. Transmitral Doppler flow pattern is Grade II-pseudonormal filling dynamics. RIGHT VENTRICLE The right ventricle is mildly dilated. There is normal right ventricular wall thickness. RV Systolic function is severely reduced. ATRIA The left atrium size is normal. The right atrium size is normal. AORTIC VALVE The aortic valve is moderately calcified. There is mild aortic regurgitation. There is moderate valvular aortic stenosis. MITRAL VALVE The mitral valve is moderately thickened. Mitral regurgitation is trace. TRICUSPID VALVE There is severe pulmonary hypertension. GREAT VESSELS The aortic root is mildly enlarged. The IVC collapses <50% with inspiration. <Conclusion> The left ventricle is normal size. There is moderate concentric left ventricular hypertrophy. The systolic function is severely impaired. There is global hypokinesis of the left ventricle. Transmitral Doppler flow pattern is Grade II-pseudonormal filling dynamics. The aortic valve is moderately calcified.There is mild aortic regurgitation. There is moderate valvular aortic stenosis. There is severe pulmonary hypertension.
[2017-06-21] MEDS ORDERED: Insulin Detemir 100 units/ml Vial (Levemir) SC SCH (22:00)
[2017-06-21] MEDS ORDERED: MethylPREDNISolone 40 mg Vial IVP SCH (22:00)
--- NOTE | 2017-06-21 23:13 | PN ---
DATE: 06/21/2017 REFERRING PHYSICIAN: Dr. Garcia. SUBJECTIVE: He is lying in the bed, feels little better, tolerated BiPAP well. Speech therapy not appreciated, does have oropharyngeal dysphagia. Still has cough and shortness of breath. No nausea, no vomiting, no diarrhea. No leg pain or leg swelling. OBJECTIVE: GENERAL: In acute distress. VITAL SIGNS: Temperature is 98, heart rate is 68, respiratory rate is 20, blood pressure 134/66, pulse oximetry is 98% on nasal cannula. HEENT: Moist mucous membrane. Crowded airway. Mallampati score is IV. NECK: Supple. No JVD. LUNGS: Has crackles two third up, scattered rhonchi. HEART: S1 and S2. ABDOMEN: Soft, nontender. No organomegaly. EXTREMITIES: There is not very much edema. NEUROLOGICAL: Awake, alert. Follows simple commands. MEDICATIONS: He is on Mucomyst 20% inhaled q. 6 hours, doxycycline 100 mg twice a day, DuoNeb q. 6 hours, Ecotrin 81 mg daily, insulin coverage, Imdur 60 mg daily, insulin Levemir 30 units subcu at bedtime, Lipitor 20 mg daily, metoprolol tartrate 25 mg twice a day, cefepime 1 gm IV daily, Mucinex LA 600 mg twice a day, multivitamins daily, Plavix 75 mg daily, Renagel 800 mg three times a day, Solu-Medrol 40 mg q. 6 hours. LABORATORY DATA: Shows sodium is 134. Blood sugar this morning 316. Sputum has some yeast. Blood cultures have been negative. Echocardiogram reviewed, reports says right ventricle systolic pressure is over 70, severely decreased systolic function. IMPRESSION AND PLAN: Chronic obstructive lung disease; interstitial infiltrate, hilar adenopathy, renal failure, dialysis dependent, diabetes, severe heart failure, has an oropharyngeal dysphagia on modified diet. Need Cardiology consult. Beta enrique , need aggressive dialysis, may need to dialyze daily basis for few days. Gastric prophylaxis. Sequential compression device to lower extremity. Also need to optimize blood pressure care. Thank you and we will follow with you. Kathrine Mckeon MD
[2017-06-22] MEDS: Acetylcysteine 20% Inhal Soln (4ml) IH SCH ×4 (01:25→19:48)
[2017-06-22] MEDS: Albuterol-Ipratrop 3 mg / 0.5 (3 ml) UD IH SCH ×5 (01:26→23:38)
--- NOTE | 2017-06-22 02:49 | PN ---
DATE: 06/21/2017 SUBJECTIVE: The patient is in bed, in no acute distress, nontoxic, was seen earlier this morning. PHYSICAL EXAMINATION: VITAL SIGNS: Temperature is 97, blood pressure 130/60, respiratory rate of 18. HEENT: Unremarkable. NECK: Supple. LUNGS: Decreased breath sounds. HEART: Normal S1 and S2. ABDOMEN: Soft and nontender. LABORATORY DATA: Reveals a white count of 7.3. Microbiology is noted yeast in the urine. Chemistries are reviewed. Serology is noted. HIV is negative. The patient's procalcitonin is 0.28. ASSESSMENT AND PLAN: This is an 81-year-old male with ____ bilateral healthcare associated pneumonia, possible gram-positive cocci, possible gram-negative pernell in a patient with end-stage renal disease, on hemodialysis, hypertension, on intermittent vancomycin and Cefepime day #3. We would recommend 4 to 7 days of antibiotics. The patient is much improved. Leland Tao MD
[2017-06-22] MEDS ORDERED: Insulin Regular 1 UNITS/0.01 ML ML SC STA ×3 (04:29→06:26)
--- NOTE | 2017-06-22 04:29 | CP.PCM.PN ---
Subjective - Date & Time of Evaluation Date of Evaluation: 06/22/17 Time of Evaluation: 04:29 - Subjective Subjective: S: Nurse calls with FSBS 377 mg %. States that he took extra cookies that family member brought for him. We repeated FSBS which is 416 mg %. Medical record was reviewed. Patient has no complaints. O: Last Vital Signs 3 Temp 97.2 F L 06/21/17 16:00 Pulse 68 06/21/17 17:42 Resp 20 06/21/17 16:00 BP 134/66 06/21/17 17:42 Pulse Ox 98 06/21/17 16:00 Awake, alert. Not in distress. LUNGS:Normal breathing pattern. A:Hyperglycemia. P: Regular insulin 10 Units SC stat. Objective - Vital Signs/Intake and Output Vital Signs (last 24 hours): Temp Pulse Resp BP Pulse Ox 97.2 F L 68 20 134/66 98 06/21/17 16:00 06/21/17 17:42 06/21/17 16:00 06/21/17 17:42 06/21/17 16:00 - Medications Medications: Current Medications Acetylcysteine (Acetylcysteine 20%) 4 ml IH [id number] [facility] Last Admin: 06/22/17 01:25 Dose: 4 ml Albuterol/Ipratropium (Duoneb 3 Mg/0.5 Mg (3 Ml) Ud) 3 ml IH [id number] [facility] Last Admin: 06/22/17 01:26 Dose: 3 ml Aspirin (Ecotrin) 81 mg PO DAILY [facility] Last Admin: 06/21/17 12:18 Dose: 81 mg Atorvastatin Calcium (Lipitor) 20 mg PO DIN [facility] Last Admin: 06/21/17 17:42 Dose: 20 mg Clopidogrel Bisulfate (Plavix) 75 mg PO DAILY [facility] Last Admin: 06/21/17 12:18 Dose: 75 mg Doxycycline Hyclate (Doryx) 100 mg PO Q12 [facility] PRN Reason: Protocol Last Admin: 06/21/17 22:02 Dose: 100 mg Guaifenesin (Mucinex La) 600 mg PO BID [facility] Last Admin: 06/21/17 17:44 Dose: 600 mg Cefepime HCl (Maxipime 1gm) 1 gm in 100 mls @ 200 mls/hr IVPB Q24H [facility] Last Admin: 06/21/17 12:19 Dose: 200 mls/hr Insulin Detemir (Levemir) 30 unit SC HS [facility] Last Admin: 06/21/17 22:01 Dose: 30 unit Insulin Human Regular (Humulin R Low) 0 units SC ACHS [facility] PRN Reason: Protocol Last Admin: 06/21/17 22:01 Dose: 3 units Isosorbide Mononitrate (Imdur) 60 mg PO DAILY [facility] Last Admin: 06/21/17 12:18 Dose: 60 mg Losartan Potassium (Cozaar) 50 mg PO DAILY [facility] Methylprednisolone (Solu-Medrol) 40 mg IVP Q12 [facility] Last Admin: 06/21/17 22:02 Dose: 40 mg Metoprolol Tartrate (Lopressor) 25 mg PO BRKDIN [facility] Last Admin: 06/21/17 17:42 Dose: 25 mg Sevelamer HCl (Renagel) 800 mg PO TID [facility] Last Admin: 06/21/17 17:42 Dose: 800 mg Vitamin B Complex/Vit C/Folic Acid (Nephro-Jarret) 1 tab PO DAILY [facility] Last Admin: 06/21/17 12:39 Dose: 1 tab - Labs Labs: 06/20/17 10:45 06/20/17 10:45
[2017-06-22] MEDS: Insulin Reg-LOW-Coverage SC SCH (09:03)
[2017-06-22 09:50] LABS: ALB/GLOB RATIO 1.4 (1.1-1.8); ALBUMIN 3.9 g/dL (3.0-4.8); CALCIUM 10.3 mg/dL (8.4-10.5)
[2017-06-22] MEDS ORDERED: Insulin Detemir 100 units/ml Vial (Levemir) SC SCH (10:24)
--- NOTE | 2017-06-22 10:39 | PN ---
DATE: 06/21/2017 SUBJECTIVE: The patient is seen lying in bed. He is awake, he is alert, he is comfortable. He reports that he went for ultrafiltration earlier. He feels much better. PHYSICAL EXAMINATION: GENERAL: Elderly male lying in bed. VITAL SIGNS: Blood pressure 134/66, heart rate 68, respiratory rate 20, temperature 97.2. HEENT: Normocephalic, atraumatic. NECK: Supple, no JVD. LUNGS: Bilateral equal entry, bilateral equal expansion. CARDIAC: S1, S2. Regular rate and rhythm, no murmur, no rub. ABDOMEN: Obese, distended, soft, nontender, bowel sounds present. EXTREMITIES: 2+ pitting edema of the lower extremities. INTAKE AND OUTPUT: Not charted. LABORATORY DATA: No new labs. MEDICATIONS: Mucomyst, Cozaar, doxycycline 100 q. 12 hours, DuoNeb, Ecotrin, insulin, Imdur, Levemir, Lipitor, Lopressor, Maxipime 1 g, Mucinex, Plavix, Renagel, and Solu-Medrol. ASSESSMENT AND PLAN: 1. Bilateral pneumonia. 2. Decompensated congestive heart failure. 3. Gmk-wusplgy-ivpiqxszx diabetes mellitus. 4. Hypertension. 5. End-stage renal disease. PLAN: 1. Continue antibiotics. 2. Continue to ultrafiltrate as needed, extra treatments. 3. Monitor fingersticks. 4. Physical therapy. Hyun Galarza MD
[2017-06-22] MEDS: guaiFENesin 600 mg ER Tab PO SCH ×2 (10:53→17:59)
[2017-06-22] MEDS: Cefepime 1gm in NS 100ml 1 GM/100 ML BAG IVPB SCH (12:02)
--- NOTE | 2017-06-22 12:17 | PN ---
DATE: SUBJECTIVE: An 81-year-old white male with end-stage renal disease on hemodialysis, admitted to the hospital with exacerbation of COPD. The patient is markedly improved today with increased breath sounds in the right thorax, still some rhonchi in the left. PHYSICAL EXAMINATION: VITAL SIGNS: He is afebrile. Vital signs are stable. HEART: Regular sinus rhythm. The patient is tolerating elevated because of his steroids and increasing his insulin coverage and also his basal insulin as well as his steroids. The patient is to continue IV antibiotics, steroids, and bronchodilator. Gustavo Garcia MD
[2017-06-22] MEDS: Insulin Reg-MEDIUM-Coverage SC SCH ×3 (13:18→22:37)
[2017-06-22] MEDS: Multivitamin Vitamin B Complex (Nephro-Vite) Tab PO SCH (17:59)
--- NOTE | 2017-06-22 18:54 | PN ---
DATE: 06/22/2017 SUBJECTIVE: The patient is in bed in no acute distress, nontoxic. PHYSICAL EXAMINATION VITAL SIGNS: Temperature is 97, blood pressure is 160/70 and respiratory rate of 20. HEENT: Unremarkable. NECK: Supple. LUNGS: Have decreased breath sounds. HEART: Normal S1 and S2. ABDOMEN: Soft and nontender. LABORATORY EXAMINATION: Reveals a white count of 7 and hemoglobin of 11. Chemistries reviewed and serology is noted. Influenza is negative. Microbiology reveals the blood cultures are no growth. The sputum culture has yeast. MEDICATIONS: Review of medications reveals the patient is on p.o. doxycycline, IV cefepime and Solu-Medrol. ASSESSMENT AND PLAN: This is an 81-year-old male with bilateral healthcare-associated pneumonia, possible Gram-positive cocci, possible Gram-negative pernell in the patient with end-stage renal disease on hemodialysis, hypertension, on day #4 of intermittent vancomycin, cefepime and doxycycline today is day #4 of 4-7 days of cefepime 1 g daily and doxycycline 100 mg p.o. b.i.d. Leland Tao MD
[2017-06-22] MEDS: MethylPREDNISolone 40 mg Vial IVP SCH (22:36)
[2017-06-23] MEDS: Acetylcysteine 20% Inhal Soln (4ml) IH SCH ×3 (02:22→14:04)
[2017-06-23] MEDS: Albuterol-Ipratrop 3 mg / 0.5 (3 ml) UD IH SCH ×3 (02:23→14:04)
[2017-06-23 06:46] LABS: GRAN # 13.57 (1.4-6.5); GRAN % 93.3 % (50.0-68.0); HEMOGLOBIN 12.1 g/dL (14.0-18.0); LYMPH # 0.4 (1.2-3.4); MEAN CORPUSCULAR HEMOGLOBIN 32.2 pg (25.0-35.0); MEAN CORPUSCULAR HGB CONC 32.3 g/dl (31.0-37.0); MEAN PLATELET VOLUME 11.1 fl (7.0-11.0); MONO # 0.5 (0.1-0.6); MONO % 3.7 % (1.0-6.0); RBC 3.76 10^6/uL (3.5-6.1); RED CELL DISTRIBUTION WIDTH 16.3 % (11.5-14.5); WHITE BLOOD COUNT 14.6 10^3/ul (4.5-11.0)
[2017-06-23 06:55] LABS: MEAN CELL VOLUME 99.7 fl (80.0-105.0)
[2017-06-23 07:13] LABS: ALB/GLOB RATIO 1.2 (1.1-1.8); ALBUMIN 3.8 g/dL (3.0-4.8); MAGNESIUM 2.3 mg/dL (1.7-2.2)
[2017-06-23] MEDS: Insulin Reg-MEDIUM-Coverage SC SCH ×2 (07:41→12:24)
--- NOTE | 2017-06-23 09:30 | PN ---
DATE: 06/22/2017 REFERRING PHYSICIAN: Gustavo Garcia M.D. SUBJECTIVE: He is out of bed to chair. Daughter is at bedside. Feels a little better. Decreased cough. Decreased sputum production. No nausea. No vomiting. No diarrhea. No leg pain or swelling. OBJECTIVE GENERAL: In no acute distress. VITAL SIGNS: Temperature 98, heart rate is 64, respiratory rate is 20, blood pressure is 144/79, and pulse ox 98% on room air. HEENT: Moist mucous membrane. Crowded airway. NECK: Supple. No JVD. LUNGS: Crackle at the bases. Scattered rhonchi. HEART: S1, S2. ABDOMEN: Soft, nontender, and no organomegaly. EXTREMITIES: Trace edema. NEUROLOGICAL: Awake, alert and does follows simple command. MEDICATIONS: He is on Mucomyst 25% inhaled q.6 hours, Cozaar 50 mg daily, doxycycline 100 mg twice daily, DuoNeb q.6 hours, , Ecotrin is 81 mg daily, insulin coverage, Imdur 60 mg daily, Levemir 40 units subcu at bedtime, Lipitor 20 mg daily, metoprolol tartarate 25 mg twice a day, cefepime 1 gm IV q.24 hours, Mucinex 600 mg twice a day, Nephro Vitamins daily, Plavix 75 mg daily, Renagel 800 mg two times a day, and Solu-Medrol 20 mg q.12 hours. LABORATORY DATA: Showed sodium 131, potassium 5.4, chloride 90, bicarbonate 22, BUN 70, creatinine 5.8, glucose 371, calcium is 10.3, AST 23, ALT 39, alk phos is 108, and albumin is 3.9. Microbiology, sputum has some yeast. IMPRESSION AND PLAN: Chronic obstructive lung disease, interstitial infiltrate, hilar adenopathy, renal failure, dialysis dependent, diabetes, severe heart failure with pulmonary hypertension, oropharyngeal dysphagia on modified diet. I spoke to patient's daughter at bedside. All the questions were answered. Spoke about cardiomyopathy and encouraged BiPAP use for sleep apnea progression. Asked the patient . Cardiology followup after . Kathrine Mckeon MD
[2017-06-23] MEDS: MethylPREDNISolone 40 mg Vial IVP SCH (10:39)
[2017-06-23] MEDS: Cefepime 1gm in NS 100ml 1 GM/100 ML BAG IVPB SCH (10:41)
[2017-06-23] MEDS: guaiFENesin 600 mg ER Tab PO SCH (10:41)
[2017-06-23] MEDS: Multivitamin Vitamin B Complex (Nephro-Vite) Tab PO SCH (10:41)
--- NOTE | 2017-06-23 11:52 | PN ---
DATE: SUBJECTIVE: This 81-year-old white male admitted with exacerbation of bronchitis, possible pneumonia, end-stage renal disease, and insulin dependent diabetes mellitus. The patient has improved several days with steroids, bronchodilators, and antibiotics. OBJECTIVE: He is afebrile. Today, he is having dialysis. Potassium is up to 6.1. IMPRESSION AND PLAN: He needs dialysis today with sodium of 128. White count is still 14,600, but tapering his steroids. We will continue antibiotics and bronchodilators. Gustavo Garcia MD
[2017-06-23 16:10] VITALS: BP 127/64; PULSE 69; RESP 20; TEMP 97.6; O2SAT 100
--- NOTE | 2017-06-23 16:44 | CP.PCM.PN ---
Subjective - Date & Time of Evaluation Date of Evaluation: 06/23/17 Time of Evaluation: 12:35 - Subjective Subjective: Comfortable in bed, no fevers overnight, not in distress, improved breathing. Objective - Vital Signs/Intake and Output Vital Signs (last 24 hours): Temp Pulse Resp BP Pulse Ox 97.1 F L 73 22 179/77 H 95 06/23/17 08:00 06/23/17 10:40 06/23/17 08:00 06/23/17 10:40 06/23/17 08:00 Intake and Output: 06/23/17 06/23/17 06:59 18:59 Intake Total 760 Output Total 600 Balance 160 - Medications Medications: Current Medications Acetylcysteine (Acetylcysteine 20%) 4 ml IH [id number] [facility] Last Admin: 06/23/17 07:16 Dose: Not Given Albuterol/Ipratropium (Duoneb 3 Mg/0.5 Mg (3 Ml) Ud) 3 ml IH [id number] [facility] Last Admin: 06/23/17 07:17 Dose: Not Given Aspirin (Ecotrin) 81 mg PO DAILY [facility] Last Admin: 06/23/17 10:40 Dose: 81 mg Atorvastatin Calcium (Lipitor) 20 mg PO DIN [facility] Last Admin: 06/22/17 18:00 Dose: 20 mg Clopidogrel Bisulfate (Plavix) 75 mg PO DAILY [facility] Last Admin: 06/23/17 10:41 Dose: 75 mg Doxycycline Hyclate (Doryx) 100 mg PO Q12 [facility] PRN Reason: Protocol Last Admin: 06/23/17 10:40 Dose: 100 mg Guaifenesin (Mucinex La) 600 mg PO BID [facility] Last Admin: 06/23/17 10:41 Dose: 600 mg Cefepime HCl (Maxipime 1gm) 1 gm in 100 mls @ 200 mls/hr IVPB Q24H [facility] Last Admin: 06/23/17 10:41 Dose: 200 mls/hr Insulin Detemir (Levemir) 40 unit SC HS [facility] Last Admin: 06/22/17 22:36 Dose: 40 unit Insulin Human Regular (Humulin R Med) 0 units SC ACHS [facility] PRN Reason: Protocol Last Admin: 06/23/17 07:41 Dose: Not Given Isosorbide Mononitrate (Imdur) 60 mg PO DAILY [facility] Last Admin: 06/23/17 10:40 Dose: 60 mg Losartan Potassium (Cozaar) 50 mg PO DAILY [facility] Last Admin: 06/23/17 10:40 Dose: 50 mg Methylprednisolone (Solu-Medrol) 20 mg IVP Q12 [facility] Last Admin: 06/23/17 10:39 Dose: 20 mg Metoprolol Tartrate (Lopressor) 25 mg PO BRKDIN [facility] Last Admin: 06/23/17 10:30 Dose: 25 mg Sevelamer HCl (Renagel) 800 mg PO TID [facility] Last Admin: 06/23/17 10:39 Dose: 800 mg Vitamin B Complex/Vit C/Folic Acid (Nephro-Jarret) 1 tab PO DAILY [facility] Last Admin: 06/23/17 10:41 Dose: 1 tab - Labs Labs: 06/23/17 06:29 06/23/17 06:29 - Constitutional Appears: Non-toxic - Head Exam Head Exam: NORMAL INSPECTION - ENT Exam ENT Exam: Mucous Membranes Moist - Neck Exam Neck Exam: absent: Meningismus - Respiratory Exam Respiratory Exam: Decreased Breath Sounds - Cardiovascular Exam Cardiovascular Exam: +S1, +S2 - GI/Abdominal Exam GI & Abdominal Exam: Soft. absent: Tenderness Assessment and Plan - Assessment and Plan (Free Text) Plan: Assessment sepsis due to bilateral HCAP with possible gram positive cocci and/or gram negative bacilli S/P Severe sepsis probably secondary to HCAPi, clinically improved ESRD on HD HTN DM CAD S/P CABG COPD significant smoking history Plan continue Cefepime and Doxycycline day 5 to complete up to 7 days of therapy will continue to monitor clinically
--- NOTE | 2017-06-23 19:37 | PN ---
DATE: 06/23/2017 SUBJECTIVE: The patient is seen lying in bed. He is just coming back from dialysis. He feels okay. He reports that he is feeling better. He is still coughing. He denies any pain. He denies any shortness of breath. PHYSICAL EXAMINATION: GENERAL: Elderly male, lying in bed. VITAL SIGNS: Blood pressure 179/77, heart rate 73, respiratory rate 22, and temperature 97.1. HEENT: Normocephalic, atraumatic. NECK: Supple, no JVD. LUNGS: Bilateral equal air entry, bilateral rhonchi, basilar rales. CARDIAC: S1 and S2, regular rate and rhythm, no murmur, no rub. ABDOMEN: Obese, distended, soft, nontender, bowel sounds present. EXTREMITIES: 1+ pitting edema of the lower extremities. INTAKE AND OUTPUT: Not charted. LABORATORY DATA: WBC 14.6, hemoglobin 12, hematocrit 37.5, and platelets 120. Sodium 128, potassium 6.1, chloride 91, CO2 of 20, BUN 91, creatinine 6.9, glucose 262, calcium 10.0, phosphorus 4.8, magnesium 2.3, albumin 3.8. Sputum culture growing yeast. Blood cultures, no growth. CURRENT MEDICATIONS: Losartan 50 daily, doxycycline 100 q.12, aspirin 81, insulin, Imdur 60, Levemir, Lipitor 20, Lopressor 25 b.i.d., Maxipime 1 gm daily, Mucinex, Nephro-Jarret, Plavix 75, Renagel 800 t.i.d., Solu-Medrol 20 q.12. ASSESSMENT AND PLAN: 1. Bilateral pneumonia. 2. Decompensated congestive heart failure. 3. Leukocytosis, likely secondary to steroids. 4. Mlg-kbhhzcz-dxblmzkkc diabetes mellitus. 5. Hypertension. 6. End-stage renal disease. 7. Volume overload. PLAN: 1. Stable dialysis today, the patient still has some edema, we will arrange for ultrafiltration tomorrow. 2. Continue antibiotics as per ID recommendations. 3. Taper steroids as feasible. 4. Add antifungals for yeast in sputum ?. Hyun Galarza MD [facility] # [id number]
== END 2017-06-23 16:30 | DRG 193 ==
LOC: ED 15:03 → ERH 18:47 → 5RSO 06-19 00:51
PROVIDERS: ADMIT Internal Medicine; ATTEND Internal Medicine
PROC: 5A1D70Z Performance of Urinary Filtration, Intermittent, Less than 6 Hours Per Day (ICD-10-PCS; principal; 2017-06-20)
PROC: 5A1D70Z Performance of Urinary Filtration, Intermittent, Less than 6 Hours Per Day (ICD-10-PCS; 2017-06-21)
PROC: 5A1D70Z Performance of Urinary Filtration, Intermittent, Less than 6 Hours Per Day (ICD-10-PCS; 2017-06-23)
DX: J18.9 Pneumonia, unspecified organism (principal); N18.6 End stage renal disease; I13.2 Hypertensive heart and chronic kidney disease with heart failure and with stage 5 chronic kidney disease, or end stage renal disease; E11.65 Type 2 diabetes mellitus with hyperglycemia; E11.22 Type 2 diabetes mellitus with diabetic chronic kidney disease; I27.20 Pulmonary hypertension, unspecified; J44.0 Chronic obstructive pulmonary disease with (acute) lower respiratory infection; J44.1 Chronic obstructive pulmonary disease with (acute) exacerbation; N25.81 Secondary hyperparathyroidism of renal origin; I50.9 Heart failure, unspecified; I25.10 Atherosclerotic heart disease of native coronary artery without angina pectoris; Z99.2 Dependence on renal dialysis; F03.90 Unspecified dementia, unspecified severity, without behavioral disturbance, psychotic disturbance, mood disturbance, and anxiety; D63.1 Anemia in chronic kidney disease; R13.12 Dysphagia, oropharyngeal phase; T38.0X5A Adverse effect of glucocorticoids and synthetic analogues, initial encounter; D72.829 Elevated white blood cell count, unspecified; Y95 Nosocomial condition; F17.200 Nicotine dependence, unspecified, uncomplicated; Z95.1 Presence of aortocoronary bypass graft; Z79.02 Long term (current) use of antithrombotics/antiplatelets

== ENCOUNTER 2017-06-23 15:59 | Inpatient (IN) | payer OTHER, BC ==
[2017-06-23 16:56] VITALS: BMI 27.4
[2017-06-23] MEDS ORDERED: Influenza Vaccine 60 mcg/0.5 mL SYR (4YR UP) IM ONE (17:21)
[2017-06-23] MEDS: Insulin Reg-MEDIUM-Coverage SC SCH ×2 (18:30→21:46)
[2017-06-23] MEDS: guaiFENesin 600 mg ER Tab PO SCH (18:32)
[2017-06-23] MEDS: Acetylcysteine 20% Inhal Soln (4ml) IH SCH (21:12)
[2017-06-23] MEDS: Albuterol-Ipratrop 3 mg / 0.5 (3 ml) UD IH SCH (21:12)
[2017-06-23] MEDS: Insulin Detemir 100 units/ml Vial (Levemir) SC SCH (21:46)
[2017-06-23] MEDS ORDERED: MethylPREDNISolone 40 mg Vial IVP SCH (22:00)
[2017-06-23] MEDS ORDERED: Albuterol-Ipratrop 3 mg / 0.5 (3 ml) UD IH STA (22:52)
[2017-06-24] MEDS: Acetylcysteine 20% Inhal Soln (4ml) IH SCH ×4 (01:27→22:04)
[2017-06-24] MEDS: Albuterol-Ipratrop 3 mg / 0.5 (3 ml) UD IH SCH ×4 (01:27→22:05)
--- NOTE | 2017-06-24 04:31 | CON ---
DATE: 06/23/2017 PULMONARY CONSULT REFERRING PHYSICIAN: Gustavo Garcia MD REASON FOR CONSULTATION: Cough, shortness of breath, chronic lung disease, may have sleep apnea syndrome, cardiomyopathy. HISTORY OF PRESENT ILLNESS: This is an 81-year-old gentleman, known to me from acute side of the hospital where he is admitted with cough, shortness of breath, recently stopped smoking, renal failure, dialysis dependent, found to have oropharyngeal dysphagia, started on modified diet, also suspected sleep apnea syndrome, started on BiPAP. 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 He tolerated BiPAP okay last night, overall feels better, but still have cough and shortness of breath. No hemoptysis. No hematemesis. No hematuria. No diarrhea reported. PAST MEDICAL HISTORY: Chronic obstructive lung disease; interstitial infiltrate; renal failure, dialysis dependent; diabetes; cardiomyopathy; coronary artery disease; oropharyngeal dysphagia. ALLERGIES: NONE KNOWN. SOCIAL HISTORY: He recently stopped smoking. Denies any alcohol use. FAMILY HISTORY: No significant cardiopulmonary disease reported. MEDICATIONS: He is on Mucomyst 20% inhaled q.6 hours; cefepime 500 mg daily; Cozaar 50 mg daily; doxycycline 100 mg twice a day; DuoNeb q.6 hours; Ecotrin 81 mg daily; insulin coverage; Imdur 60 mg daily; Levemir 40 units subcu at bedtime; Lipitor 20 mg daily; metoprolol tartrate 25 mg twice a day; Mucinex LA 600 mg twice a day; Nephro vitamins daily; Plavix 75 mg daily; Renagel 800 mg with meals; Solu-Medrol 20 mg q.12 hours. REVIEW OF SYSTEMS: No headache. No rhinitis. Still have cough, sputum production. No chest pain. No nausea. No vomiting. No diarrhea. No leg pain. No leg swelling. PHYSICAL EXAMINATION: GENERAL: Lying in the bed, in mild distress secondary to cough and shortness of breath. VITAL SIGNS: Temperature is 98, heart rate is 69, respiratory rate is 20, blood pressure 125/57, pulse oximetry is 100% on 3 liters nasal cannula. HEENT: Moist mucous membranes. Small oral cavity. NECK: Supple. No JVD. LUNGS: Have crackles and scattered rhonchi. HEART: S1 and S2. ABDOMEN: Soft, nontender, no organomegaly. EXTREMITIES: No edema. NEUROLOGIC: Awake, alert, and follows simple commands. LABORATORY DATA: Shows hemoglobin 12.1, hematocrit 37.5, WBC 14.6, platelet count is 120. Sodium 128, potassium 6.1, chloride 91, bicarbonate 20, BUN 91, creatinine 6.9, glucose 262, calcium 10.0, phosphorus 4.8, magnesium 2.3, AST 43, ALT 42, alkaline phosphatase is 103, albumin is 3.8. Microbiology, sputum has some yeast. Blood culture has been negative. IMPRESSION AND PLAN: Cardiomyopathy with pulmonary hypertension; chronic obstructive lung disease; interstitial infiltrate; hilar adenopathy; renal failure, dialysis dependent; diabetes; hypertension; oropharyngeal dysphagia, on modified diet. We will continue BiPAP while sleeping. Keep head at 45 degrees. 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 Thank you and we will follow with you. Kathrine Mckeon MD
[2017-06-24] MEDS: Cefepime 0.5 GM in Sodium Chloride 0.9% 100 ML IVPB SCH (05:49)
[2017-06-24] MEDS: MethylPREDNISolone 40 mg Vial IVP SCH ×2 (05:50→17:18)
[2017-06-24] MEDS ORDERED: Cefepime 1gm in NS 100ml 1 GM/100 ML BAG IVPB SCH (06:00)
[2017-06-24] MEDS: Insulin Reg-MEDIUM-Coverage SC SCH ×4 (06:59→21:38)
[2017-06-24 07:55] LABS: ALB/GLOB RATIO 1.3 (1.1-1.8); ALBUMIN 3.9 g/dL (3.0-4.8); CALCIUM 9.4 mg/dL (8.4-10.5)
[2017-06-24] MEDS: Multivitamin Vitamin B Complex (Nephro-Vite) Tab PO SCH (08:43)
[2017-06-24] MEDS: guaiFENesin 600 mg ER Tab PO SCH ×2 (09:02→17:16)
--- NOTE | 2017-06-24 10:04 | PN ---
DATE: SUBJECTIVE: An 81-year-old white male transferred to [facility] TCU . The patient is afebrile. PHYSICAL EXAMINATION: VITAL SIGNS: Stable. He is status post dialysis, he has rhonchi and rales in both lung files, but improving. He still has cough. He is afebrile. today. PLAN: He is to continue IV antibiotics, bronchodilators, and steroids tapering slowly and continue hemodialysis. Gustavo Garcia MD
--- NOTE | 2017-06-24 15:44 | PN ---
DATE: SUBJECTIVE: The patient is currently seen in TCU. This is day #1. He appears to be comfortable sitting up in a chair, oxygen by nasal cannula is in place. He is reading a newspaper and watching television. He had an uneventful dialysis yesterday. He was scheduled for his next dialysis tomorrow. He is being treated for bilateral pneumonia. MEDICATIONS: Medication list reviewed. The patient is on acetylcysteine, cefepime, Cozaar, doxycycline, DuoNeb, Ecotrin, insulin, Imdur, Levemir, Lipitor, Lopressor, Mucinex, Nephro-Jarret, Plavix, Renagel and Solu-Medrol. OBJECTIVE: VITAL SIGNS: Blood pressure 138/70, temperature 98.1, respiratory rate 18 with a pulse of 70. HEENT: Shows him to be normocephalic, atraumatic. Conjunctivae are pale. Sclerae are nonicteric. NECK: Supple. No neck vein distention. CHEST: Clear to auscultation and percussion with occasional scattered rhonchi. No rales or wheezing. CARDIOVASCULAR: Shows a regular S1, S2 with no audible murmurs, rubs or gallops noted. ABDOMEN: Soft. Bowel sounds normal. No rebound or guarding or masses. EXTREMITIES: Show 1+ pitting edema of his lower extremity. LABORATORY DATA AND IMAGING: CBC: White blood cell count yesterday was 14.6, perhaps elevation from steroids. Hemoglobin 12.1, stable. Platelet count is 120,000. Chemistry showed normal electrolytes. BUN 65 with a creatinine of 5.0. Glucose is 285. Calcium was 9.4. His phosphorus level was 4.8. Magnesium level was 2.3. Liver enzymes are normal. Albumin is 3.9. Microbiology: Sputum was positive for yeast. Blood cultures are negative at 4 days. ASSESSMENT: 1. Status post acute respiratory distress secondary to bilateral pneumonia and decompensated congestive heart failure. The patient will complete a course of intravenous antibiotic therapy and continue inhalation therapy under the guidance of his call center assistant. He will also complete a course of steroids. From a fluid standpoint, we will continue to ultrafiltrate the patient aggressively with dialysis to rid him of edema and to prevent congestive heart failure. 2. History of [id number] diabetes mellitus. The patient will continue sliding scale insulin therapy. 3. History of hypertension. The patient will continue present blood pressure medication. 4. History of end-stage renal disease. Continue 3 times a week dialysis. Next dialysis is scheduled for tomorrow. 5. History of secondary hyperparathyroidism. Phosphorus level is acceptable. 6. History of hyperlipidemia. The patient will continue statin therapy. PLAN: 1. Hemodialysis Friday, Friday, Friday. Encouraged the patient to limit p.o. fluid intake. I will attempt to maximize ultrafiltration with dialysis. 2. Complete course of antibiotic therapy for his bilateral pneumonia. 3. Taper steroids when able. 4. Continue renal diet and binder therapy. Alton Bailey MD
[2017-06-24] MEDS: Insulin Detemir 100 units/ml Vial (Levemir) SC SCH (21:38)
[2017-06-25] MEDS: Acetylcysteine 20% Inhal Soln (4ml) IH SCH ×4 (02:55→21:30)
[2017-06-25] MEDS: Albuterol-Ipratrop 3 mg / 0.5 (3 ml) UD IH SCH ×4 (02:55→21:30)
--- NOTE | 2017-06-25 03:26 | PN ---
DATE: 06/24/2017 PULMONARY PROGRESS NOTE REFERRING PHYSICIAN: Gustavo Garcia MD SUBJECTIVE: The patient is out of bed to chair, having dinner. Feels much better. Tolerated BiPAP well. Cough is better. No nausea, no vomiting. No diarrhea. No leg pain or leg swelling. OBJECTIVE: GENERAL: In no acute distress. VITAL SIGNS: Temperature is 98, heart rate is 68, respiratory rate is 18, blood pressure 147/66, and pulse ox 98% on 2 liters nasal cannula. HEENT: Moist mucous membranes. Crowded airway. Mallampati score is IV. NECK: Supple. No JVD. LUNGS: Has scattered rhonchi, has a few crackles. HEART: S1 and S2. ABDOMEN: Soft, nontender. No organomegaly. EXTREMITIES: No edema. NEUROLOGIC: Awake, alert. Follows simple command. MEDICATIONS: He is on Mucomyst 20% inhaled q. 6 hours, Benadryl 25 mg q. 6 hours p.r.n., cefepime 500 mg daily, Cozaar 50 mg daily, doxycycline 100 mg twice a day, DuoNeb q. 6 hours, Ecotrin 81 mg daily, insulin coverage, Imdur 60 mg daily, Levemir 40 units subcu at bedtime, Lipitor 20 mg daily, metoprolol tartrate 25 mg twice a day, Mucinex LA 600 mg twice a day, Nephro vitamins daily, Plavix 75 mg daily, Renagel 800 mg with meals, Solu-Medrol 20 mg twice a day. LABORATORY DATA: Shows sodium 133, potassium 5.0, chloride 94, bicarbonate 26, BUN 65, creatinine 5.0, glucose 246, calcium is 9.4, AST 42, ALT 48, alk phos is 92, albumin 3.9. IMPRESSION AND PLAN: Cardiomyopathy with pulmonary hypertension, chronic obstructive lung disease, interstitial infiltrate, hilar adenopathy, renal failure - dialysis dependent, diabetes, hypertension, oropharyngeal dysphagia, on modified diet. From a pulmonary point of view, he is doing okay. We will continue BiPAP while sleeping. Continue IV and inhaled bronchodilator. 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 We will request Nephrology to increase fluid takeout with dialysis. Thank you and we will follow with you. Kathrine Mckeon MD [facility] # [id number]
[2017-06-25] MEDS: Cefepime 0.5 GM in Sodium Chloride 0.9% 100 ML IVPB SCH (05:02)
[2017-06-25] MEDS: MethylPREDNISolone 40 mg Vial IVP SCH ×2 (05:04→18:10)
[2017-06-25] MEDS: Insulin Reg-MEDIUM-Coverage SC SCH ×4 (06:47→22:00)
[2017-06-25] MEDS: Multivitamin Vitamin B Complex (Nephro-Vite) Tab PO SCH (08:11)
[2017-06-25] MEDS: guaiFENesin 600 mg ER Tab PO SCH ×2 (10:10→18:10)
[2017-06-25 14:55] LABS: BASO # 0.01 K/mm3 (0.0-2.0); GRAN # 18.44 (1.4-6.5); GRAN % 91.4 % (50.0-68.0); HEMOGLOBIN 12.5 g/dL (14.0-18.0); LYMPH # 0.5 (1.2-3.4); LYMPH % 2.4 % (22.0-35.0); MEAN CELL VOLUME 98.7 fl (80.0-105.0); MEAN CORPUSCULAR HEMOGLOBIN 32.1 pg (25.0-35.0); MEAN CORPUSCULAR HGB CONC 32.5 g/dl (31.0-37.0); MEAN PLATELET VOLUME 11.3 fl (7.0-11.0); MONO # 1.3 (0.1-0.6); MONO % 6.2 % (1.0-6.0); PLATELET COUNT 129 10^3/uL (120.0-450.0); RED CELL DISTRIBUTION WIDTH 16.3 % (11.5-14.5); WHITE BLOOD COUNT 20.2 10^3/ul (4.5-11.0)
[2017-06-25 15:23] LABS: ALB/GLOB RATIO 1.4 (1.1-1.8); ALBUMIN 3.9 g/dL (3.0-4.8); CALCIUM 9.9 mg/dL (8.4-10.5); MAGNESIUM 2.2 mg/dL (1.7-2.2)
[2017-06-25 15:59] LABS: ANISOCYTOSIS SLIGHT; ATYPICAL LYMPHOCYTE 2 % (0.0-0.0); BAND 1 % (0-2); LYMPHOCYTE 2 % (22.0-35.0); MONOCYTE 2 % (1.0-6.0); NEUTROPHIL 93 % (50.0-70.0); PLATELET ESTIMATE NORMAL (NORMAL); POIKILOCYTOSIS SLIGHT
--- NOTE | 2017-06-25 18:58 | PN ---
DATE: 06/25/2017 SUBJECTIVE: The patient is seen sitting in chair. He is eating lunch. He complains of difficulty swallowing this morning. Currently, he is not having any difficulty. PHYSICAL EXAMINATION: GENERAL: Elderly male sitting in chair. VITAL SIGNS: Blood pressure 151/68, heart rate 73, respiratory rate 18, temperature 98.4 HEENT: Normocephalic, atraumatic, positive pallor. NECK: Supple, no JVD. LUNGS: Bilateral equal entry, bilateral equal expansion, bilateral decreased air entry at bases. CARDIAC: S1, S2, regular rate and rhythm, no murmur, no rub. ABDOMEN: Obese, distended, soft, nontender, bowel sounds present. EXTREMITIES: 2+ pitting edema of the lower extremities. INTAKE AND OUTPUT: Not charted. LABORATORY DATA. Potassium 5.0 yesterday. CURRENT MEDICATIONS: Cozaar 50, cefepime 500 mg daily, Benadryl, Mucomyst, doxycycline 100 q.12, DuoNeb, aspirin, insulin, Imdur, Lipitor, Lopressor, folic acid, Plavix, sevelamer, and Solu-Medrol. ASSESSMENT/PLAN: 1. Bilateral pneumonia. 2. Decompensated congestive heart failure. 3. Een-exxtrel-xdtmriatu diabetes mellitus. 4. Hypertension. 5. End stage renal disease. 6. Anemia of chronic kidney disease. 7. Hyperlipidemia. 8. Secondary hyperparathyroidism. PLAN: 1. Dialysis today, perhaps ultrafiltration tomorrow. 2. Complete antibiotics. 3. Taper steroids. 4. Physical therapy. 5. Monitor for dysphagia. Hyun Galarza MD
--- NOTE | 2017-06-25 21:26 | PN ---
DATE: 06/25/2017 PULMONARY PROGRESS NOTE REFERRING PHYSICIAN: Gustavo Garcia MD SUBJECTIVE: The patient is lying in the bed at 45 degrees. Night was unremarkable. Still has some cough but feels better. Tolerated BiPAP well. No nausea, no vomiting. No diarrhea. No leg pain or leg swelling. OBJECTIVE: GENERAL: In no acute distress. VITAL SIGNS: Temperature is 98, heart rate is 74, respiratory rate is 20, blood pressure 151/68, and pulse ox 98% on 2 L nasal cannula. HEENT: Moist mucous membranes. Crowded airway. NECK: Supple. No JVD. LUNGS: Scattered rhonchi and a few crackles. HEART: S1 and S2. ABDOMEN: Soft, nontender. No organomegaly. EXTREMITIES: No edema. NEUROLOGIC: Awake, alert. Follows simple command. MEDICATIONS: He is on Mucomyst 4 mL inhaled q.6 hours, Benadryl 25 mg q.6 hours p.r.n., cefepime 0.5 mg daily, Cozaar 50 mg daily, doxycycline 100 mg twice a day, DuoNeb q.6 hours, Ecotrin 81 mg daily, insulin coverage, Imdur 60 mg daily, Levemir 40 units subcu at bedtime, Lipitor 20 mg daily, metoprolol tartrate 25 mg twice a day, Mucinex LA 600 mg twice a day, Nephro vitamins daily, Plavix 75 mg daily, Renagel 800 mg with meals, Solu-Medrol 20 mg q.12 hours. LABORATORY DATA: Shows hemoglobin 12.5, hematocrit 38.5, WBC 20, platelet is 129. Sodium 129, potassium 5.2, chloride 89, bicarbonate 21, BUN is 93, creatinine 6.7, glucose is 211, calcium 9.9, phosphorus 6.2, magnesium 2.2, AST 37, ALT 58, alkaline phosphatase is 94, albumin is 3.9. IMPRESSION AND PLAN: Cardiomyopathy with pulmonary hypertension; chronic obstructive lung disease; interstitial infiltrate; hilar adenopathy; renal failure, dialysis dependent; diabetes; hypertension; oropharyngeal dysphagia, modified diet. May have a component of sleep apnea syndrome. We will continue and encourage BiPAP use. Keep head at 45 degrees. 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 Thank you and we will follow with you. Kathrine Mckeon MD [facility] # [id number]
[2017-06-25] MEDS: Insulin Detemir 100 units/ml Vial (Levemir) SC SCH (22:01)
[2017-06-26] MEDS: Albuterol-Ipratrop 3 mg / 0.5 (3 ml) UD IH SCH ×4 (03:30→20:37)
[2017-06-26] MEDS: Acetylcysteine 20% Inhal Soln (4ml) IH SCH ×4 (03:30→20:37)
[2017-06-26] MEDS: Cefepime 0.5 GM in Sodium Chloride 0.9% 100 ML IVPB SCH (05:40)
[2017-06-26] MEDS: MethylPREDNISolone 40 mg Vial IVP SCH ×2 (05:41→17:53)
[2017-06-26] MEDS: Insulin Reg-MEDIUM-Coverage SC SCH ×4 (06:51→21:49)
[2017-06-26] MEDS: Multivitamin Vitamin B Complex (Nephro-Vite) Tab PO SCH (08:16)
[2017-06-26] MEDS: guaiFENesin 600 mg ER Tab PO SCH ×2 (10:27→17:52)
--- NOTE | 2017-06-26 13:53 | PN ---
DATE: SUBJECTIVE: An 81-year-old white male in TCU, end-stage renal disease and chronic bronchitis. Patient is improving steadily. Kyphosis of the neck with difficulty swallowing, but passes swallowing evaluation. Patient has continued to receive physical therapy, occupational therapy and hemodialysis. He is improving steadily. LABORATORY DATA: Did show an elevated white count of 20,000. He is on steroids with tapering slowly. Sodium is 129. BUN and creatinine are 93 and 6.7, on dialysis. Gustavo Garcia MD
--- NOTE | 2017-06-26 15:53 | PN ---
DATE: 06/26/2017 SUBJECTIVE: The patient is seen sitting in chair. He is eating lunch. He is awake. He is alert. He is comfortable. PHYSICAL EXAMINATION: GENERAL: Elderly male, sitting in chair. VITAL SIGNS: Blood pressure 114/57, heart rate 71, respiratory rate 20, temperature 98.4. HEENT: Normocephalic, atraumatic. NECK: Supple, no JVD. LUNGS: Bilateral equal air entry, basilar rales. CARDIAC: S1 and S2, regular rate and rhythm, no murmur, no rub. ABDOMEN: Obese, distended, soft, nontender, bowel sounds present. EXTREMITIES: 1+ pitting edema of the lower extremities. INTAKE AND OUTPUT: Not charted. LABORATORY DATA: WBC 20, hemoglobin 12.5, hematocrit 30.5, platelets 129. Sodium 129, potassium 5.2, chloride of 89, CO2 of 21, BUN 93, creatinine 6.7, glucose 211, calcium 9.9, phosphorus 6.2, magnesium 2.2, albumin 3.9. CURRENT MEDICATIONS: Renagel 800 three times with meals, Solu-Medrol 20 IV q. 12, Plavix 75, Pepcid 20, Lopressor 25 b.i.d., Lipitor 20, insulin. ASSESSMENT: 1. Bilateral pneumonia. 2. Decompensated congestive heart failure. 3. Hyperphosphatemia. 4. Hypertension. 5. Jje-mqwdtun-csdpznroi diabetes mellitus. 6. Coronary artery disease. 7. End-stage renal disease. PLAN: 1. Ultrafiltration today, 2.5 hours, attempt to remove 3 kg. 2. Continue phosphate binders. 3. Antibiotics as per ID recommendations. 4. Physical therapy. 5. Monitor fingersticks. 6. Continue current antihypertensives. Hyun Galarza MD
[2017-06-26] MEDS: Insulin Detemir 100 units/ml Vial (Levemir) SC SCH (22:33)
[2017-06-27] MEDS: Acetylcysteine 20% Inhal Soln (4ml) IH SCH ×4 (02:00→21:15)
--- NOTE | 2017-06-27 02:11 | PN ---
DATE: 06/26/2017 REFERRING PHYSICIAN: Dr. Garcia. SUBJECTIVE: He just came back from dialysis on a wheelchair. Daughter is in the room. Night was unremarkable, tolerated BiPAP okay. Still has some cough and shortness of breath. No nausea, vomiting, diarrhea, leg pain or leg swelling. OBJECTIVE: GENERAL: In no acute distress. VITAL SIGNS: Temperature is 98, heart rate is 69, respiratory rate is 20, blood pressure 142/77, pulse ox 100% on nasal cannula. HEENT: Moist mucous membrane. Crowded airway. NECK: Supple. No JVD. LUNGS: Has scattered rhonchi and few crackles. HEART: S1 and S2. ABDOMEN: Soft, nontender. No organomegaly. EXTREMITIES: There is no edema. NEUROLOGICAL: Awake, alert, follows simple commands. MEDICATIONS: He is on Mucomyst 20% inhaled q. 6 hours, Benadryl 25 mg q. 6 hours p.r.n., cefepime 500 mg daily, Cozaar 50 mg daily, doxycycline 100 mg twice a day, DuoNeb q. 6 hours, Ecotrin 81 mg daily, heparin 5000 subcutaneous q. 12 hours, insulin coverage, Imdur 60 mg daily, Lipitor 20 mg daily, metoprolol tartrate 25 mg twice a day, Mucinex LA 600 mg twice a day, Nephro vitamins daily, Pepcid 20 mg at bedtime, Plavix 75 mg daily, Renagel 800 mg with the meals, Solu-Medrol 20 mg q. 12 hours. LABORATORY DATA: Reviewed blood sugar this morning, 257. IMPRESSION: Cardiomyopathy with pulmonary hypertension; chronic obstructive lung disease, interstitial infiltrate, hilar adenopathy; renal failure, dialysis dependent; diabetes; hypertension; oropharyngeal dysphagia, modified diet. Spoke to the patient and his daughter in detail about fluid intake in the presence of cardiomyopathy and renal failure. The patient expressed understanding. We will cut down some of the fluids, also maybe suspected sleep apnea syndrome. We will continue BiPAP for now, outpatient recommended sleep study. 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 We will decrease Solu-Medrol, and we will follow with you. Kathrine Mckeon MD
[2017-06-27] MEDS: Albuterol-Ipratrop 3 mg / 0.5 (3 ml) UD IH SCH ×4 (02:30→21:15)
[2017-06-27] MEDS: Cefepime 0.5 GM in Sodium Chloride 0.9% 100 ML IVPB SCH (05:23)
[2017-06-27] MEDS: Insulin Reg-MEDIUM-Coverage SC SCH ×4 (06:48→23:37)
[2017-06-27] MEDS: Multivitamin Vitamin B Complex (Nephro-Vite) Tab PO SCH (08:18)
[2017-06-27] MEDS: MethylPREDNISolone 40 mg Vial IVP SCH (10:43)
[2017-06-27] MEDS: guaiFENesin 600 mg ER Tab PO SCH ×2 (10:45→17:23)
[2017-06-27 12:14] LABS: BASO # 0.01 K/mm3 (0.0-2.0); BASO % 0.1 % (0.0-3.0); EOS # 0.1 (0.0-0.7); EOS % 0.4 % (1.5-5.0); GRAN # 14.76 (1.4-6.5); GRAN % 82.2 % (50.0-68.0); HEMOGLOBIN 11.7 g/dL (14.0-18.0); LYMPH # 0.9 (1.2-3.4); MEAN CELL VOLUME 99.7 fl (80.0-105.0); MEAN CORPUSCULAR HEMOGLOBIN 31.7 pg (25.0-35.0); MEAN CORPUSCULAR HGB CONC 31.8 g/dl (31.0-37.0); MONO # 2.2 (0.1-0.6); MONO % 12.3 % (1.0-6.0); RBC 3.69 10^6/uL (3.5-6.1); RED CELL DISTRIBUTION WIDTH 16.4 % (11.5-14.5); WHITE BLOOD COUNT 17.9 10^3/ul (4.5-11.0)
[2017-06-27 12:33] LABS: ALB/GLOB RATIO 1.3 (1.1-1.8); ALBUMIN 3.5 g/dL (3.0-4.8); CALCIUM 9.5 mg/dL (8.4-10.5); MAGNESIUM 2.2 mg/dL (1.7-2.2)
--- NOTE | 2017-06-27 13:40 | PN ---
DATE: SUBJECTIVE: An 81-year-old white male with end-stage renal disease, exacerbation of COPD, kyphosis of the neck with some falling disorder. The patient is status post hemodialysis yesterday; had some prolonged bleeding from the right upper extremity AV graft. The patient does have an elevated white count of 20,000. ASSESSMENT AND PLAN: He is on steroids, we will be started to taper. Vital signs are stable. There is less bleeding today. We will hold his aspirin and Plavix today. Continue physical therapy, occupational therapy, and bronchodilator therapy. Gustavo Garcia MD
--- NOTE | 2017-06-27 15:43 | PN ---
DATE: 06/27/2017 SUBJECTIVE: The patient is seen in the dialysis unit. He is awake, he is alert, he is comfortable. PHYSICAL EXAMINATION: GENERAL: Elderly male sitting in chair. VITAL SIGNS: Blood pressure 152/77, heart rate 68, respiratory rate 18, temperature 98.4. HEENT: Normocephalic, atraumatic. NECK: Supple, no JVD. LUNGS: Bilateral equal air entry, no rales. CARDIAC: S1, S2, regular rate and rhythm, no murmur, no rub. ABDOMEN: Obese, distended, soft, nontender, bowel sounds present. EXTREMITIES: Trace lower extremity edema. INTAKE AND OUTPUT: Not charted. LABORATORY DATA: WBC 17.9, hemoglobin 11.7, hematocrit 37 and platelets 139. Sodium 134, potassium 4.9, chloride 96, CO2 of 22, BUN 97, creatinine 6.7, glucose 158, calcium 9.5 and phosphorus 6.1. CURRENT MEDICATIONS: List reviewed. ASSESSMENT: 1. Bilateral pneumoniae. 2. Congestive heart failure. 3. Cho-jhldsfy-joewxojce diabetes mellitus. 4. Hypertension. 5. Hyperphosphatemia. 6. End-stage renal disease. PLAN: 1. Increase Renagel to 1600 mg three times a day with food. 2. Stable dialysis. 3. Monitor euglycemia. 4. Physical therapy. 5. Complete antibiotics. Hyun Galarza MD
[2017-06-28] MEDS: Insulin Detemir 100 units/ml Vial (Levemir) SC SCH ×2 (00:23→22:13)
--- NOTE | 2017-06-28 01:35 | PN ---
DATE: 06/27/2017 PULMONARY PROGRESS NOTE REFERRING PHYSICIAN: Gustavo Garcia MD. SUBJECTIVE: He just come back from dialysis, sitting up, having dinner. Night was unremarkable. Did not use his BiPAP. Breathing is better. Decreased short of breath. No nausea, no diarrhea, leg pain, leg swelling. OBJECTIVE: GENERAL: In no acute distress. VITAL SIGNS: Temperature is 98, heart rate IS 93, respiratory rate is 20, blood pressure 105/43, pulse ox is 98% on nasal cannula. HEENT: Moist mucous membrane. Crowded airway. Mallampati score is 4. NECK: Supple. No JVD. LUNGS: Have scattered rhonchi. Few crackles. HEART: S1 and S2 ABDOMEN: Soft, nontender. No organomegaly. EXTREMITIES: There is no edema. NEUROLOGIC: Awake and alert. Follows simple command. MEDICATIONS: He is on Mucomyst 20% inhaled q. 6 hours, Benadryl 25 mg q. 6 hours p.r.n., getting cefepime 1 g IV daily, Cozaar 50 mg daily, doxycycline 100 mg twice a day, DuoNeb q. 6 hours, Ecotrin 81 mg daily, heparin 5000 units subcu q. 12 hours, insulin coverage, Imdur 60 mg daily, Levemir 40 units subcu, Lipitor 20 mg daily, metoprolol tartrate 25 mg twice a day, Mucomyst LA 600 mg twice a day, Nephro vitamins daily, Pepcid 20 mg daily, Plavix 75 mg daily, Renagel with meals, Solu-Medrol 20 mg daily. LABORATORY DATA: Shows hemoglobin 11.7, hematocrit 36.8, WBC 17.9, platelet is 139. Sodium 134, potassium 4.9, chloride 96, bicarbonate 22, BUN 97, creatinine 6.0, glucose is 158, calcium is 9.8, phosphorus 6.1, AST 39, ALT 473, alk phos is 89, albumin is 3.5. IMPRESSION AND PLAN: Cardiomyopathy with pulmonary hypertension, chronic obstructive lung disease, interstitial infiltrate, hilar adenopathy, renal failure, dialysis dependent, diabetes, hypertension, oropharyngeal dysphagia, modified diet. Pulmonary point view, doing okay. Encourage bilevel positive airway pressure use at nighttime. Intravenous and inhaled bronchodilator. Continue aggressive dialysis. Spoke to the patient about fluid intake and its effect in the heart failure. Incentive spirometer. Thank you and we will follow with you. Kathrine Mckeon MD
[2017-06-28] MEDS: Albuterol-Ipratrop 3 mg / 0.5 (3 ml) UD IH SCH ×4 (02:13→20:32)
[2017-06-28] MEDS: Acetylcysteine 20% Inhal Soln (4ml) IH SCH ×4 (02:13→20:32)
[2017-06-28] MEDS: Cefepime 0.5 GM in Sodium Chloride 0.9% 100 ML IVPB SCH (05:47)
[2017-06-28] MEDS: Insulin Reg-MEDIUM-Coverage SC SCH ×4 (06:47→22:14)
[2017-06-28] MEDS: Multivitamin Vitamin B Complex (Nephro-Vite) Tab PO SCH (08:28)
[2017-06-28] MEDS: guaiFENesin 600 mg ER Tab PO SCH ×2 (10:58→17:58)
[2017-06-28] MEDS: MethylPREDNISolone 40 mg Vial IVP SCH (10:59)
--- NOTE | 2017-06-28 13:13 | PN ---
DATE: SUBJECTIVE: This 81-year-old white male in TCU. White count has dropped to 17,900 and steroid had been tapered. He is here for end-stage renal disease, on dialysis and exacerbation of COPD. He has less cough, less rhonchi although still present. Continue physical therapy and occupational therapy. Also, having some problems with bleeding of his shunt, but unstable. Gustavo Garcia MD
--- NOTE | 2017-06-28 18:54 | PN ---
DATE: 06/28/2017 SUBJECTIVE: The patient is seen sitting in chair. He is awake. He is alert. He is comfortable. He is coughing a little bit. PHYSICAL EXAMINATION: GENERAL: Elderly male, sitting in chair. VITAL SIGNS: Blood pressure 117/59, heart rate 72, respiratory rate 18, temperature 97.4. HEENT: Normocephalic, atraumatic, positive pallor. NECK: Supple, no JVD. LUNGS: Bilateral equal air entry, basilar rales. CARDIAC: S1 and S2, regular rate and rhythm, no murmur, no rub. ABDOMEN: Obese, distended, soft, nontender, bowel sounds present. EXTREMITIES: 3+ pitting edema of the lower extremities. INTAKE AND OUTPUT: Not charted. LABORATORY DATA: Hemoglobin 11.7, potassium 4.9 yesterday. MEDICATIONS: List reviewed. ASSESSMENT: 1. Bilateral pneumonia. 2. Congestive heart failure. 3. Volume overload. 4. End-stage renal disease. PLAN 1. Ultrafiltration today, 2 hours 2 kg. 2. Lower Imdur to 30 mg daily. 3. Continue Lopressor 25 b.i.d. 4. If necessary, lower losartan to 25 mg daily. Hyun Galarza MD
[2017-06-29] MEDS: Acetylcysteine 20% Inhal Soln (4ml) IH SCH ×4 (03:11→21:17)
[2017-06-29] MEDS: Albuterol-Ipratrop 3 mg / 0.5 (3 ml) UD IH SCH ×4 (03:11→21:17)
--- NOTE | 2017-06-29 04:12 | PN ---
DATE: 06/28/2017 REFERRING PHYSICIAN: Gustavo Garcia MD. SUBJECTIVE: Patient is lying in the dialysis chair, status post dialysis, feels better, still has a mild cough. No nausea. No vomiting. No diarrhea. Still has leg swelling. OBJECTIVE: GENERAL: In no acute distress. VITAL SIGNS: Temp is 98, heart rate 72, respiratory rate is 18, blood pressure 125/66, pulse ox 98% on nasal cannula. HEENT: Moist mucous membranes. Crowded airway. NECK: Supple. No JVD. LUNGS: Has scattered rhonchi. Few crackles. HEART: S1 and S2. ABDOMEN: Soft and nontender. No organomegaly. EXTREMITIES: Does have edema. NEUROLOGIC: Awake, alert. Follows simple commands. MEDICATIONS: He is on Mucomyst 20% inhaled q. 6 hours, Benadryl 25 mg q. 6 hours p.r.n., cefepime 500 mg daily, Cozaar 50 mg daily, doxycycline 100 mg twice a day, DuoNeb q. 6 hours, Ecotrin 81 mg daily, heparin 5000 units subcu q. 12 hours, insulin coverage, Imdur 30 mg daily, Levemir 40 units subcu at bedtime, Lipitor 20 mg daily, metoprolol tartrate 25 mg twice a day, Mucinex LA 600 mg twice a day, Nephro vitamins daily, Pepcid 20 mg daily, Plavix 75 mg daily, Renagel 600 mg with the meals, and Solu-Medrol 20 mg daily. LABORATORY DATA: Showed blood sugar this morning 308. IMPRESSION AND PLAN: Cardiomyopathy, pulmonary hypertension; chronic obstructive lung disease; interstitial infiltrate; hilar adenopathy; renal failure, dialysis dependent; fluid overloaded; diabetes; hypertension; oropharyngeal dysphagia, on modified diet; component of sleep apnea syndrome. We will decrease Solu-Medrol. Continue beta-enrique. 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 Encourage bilevel positive airway pressure use. Gastric prophylaxis. Sequential compression device to lower extremities, fall precaution. Thank you and we will follow with you. Kathrine Mckeon MD
[2017-06-29] MEDS: Cefepime 0.5 GM in Sodium Chloride 0.9% 100 ML IVPB SCH (05:08)
[2017-06-29] MEDS: Insulin Reg-MEDIUM-Coverage SC SCH ×4 (06:53→22:33)
[2017-06-29] MEDS: Multivitamin Vitamin B Complex (Nephro-Vite) Tab PO SCH (08:07)
[2017-06-29] MEDS: guaiFENesin 600 mg ER Tab PO SCH ×2 (10:20→17:50)
[2017-06-29 10:25] VITALS: RESP 20
[2017-06-29] MEDS: Insulin Detemir 100 units/ml Vial (Levemir) SC SCH (21:56)
[2017-06-30] MEDS: Albuterol-Ipratrop 3 mg / 0.5 (3 ml) UD IH SCH ×4 (01:47→19:56)
[2017-06-30] MEDS: Acetylcysteine 20% Inhal Soln (4ml) IH SCH ×4 (01:47→19:56)
--- NOTE | 2017-06-30 02:26 | PN ---
DATE: 06/29/2017 PULMONARY PROGRESS NOTE REFERRING PHYSICIAN: Dr. Garcia. SUBJECTIVE: He is lying in the bed, head at 45 degrees. Night was unremarkable. Does not use . No nausea, no vomiting, no diarrhea. Still has some cough. No dysuria. Does have a leg swelling. OBJECTIVE: GENERAL: In no acute distress. VITAL SIGNS: Temperature is 98, heart rate is 68, respiratory rate is 20, blood pressure 120/56, and pulse ox 97% on room air. HEENT: Moist mucous membranes. No ulcer or thrush noted. NECK: Supple. No JVD. LUNGS: Have a scattered rhonchi and a few crackles at the bases. HEART: S1 and S2. ABDOMEN: Soft, nontender. No organomegaly. EXTREMITIES: Does have edema. NEUROLOGIC: Awake and alert. Follows simple commands. MEDICATIONS: He is on Mucomyst 20% inhaled q. 6 hours, Benadryl 25 mg q. 6 hours, cefepime 500 mg daily, Cozaar 50 mg daily, doxycycline 100 mg twice a day, DuoNeb q. 6 hours, Ecotrin 81 mg daily, heparin 5000 units subcu q. 12 hours, insulin coverage, Imdur 30 mg daily, Levemir 40 units subcu at bedtime, Lipitor 20 mg daily, metoprolol tartrate 25 mg twice a day, Mucinex LA 600 mg twice a day, Nephro vitamins daily, Pepcid 20 mg daily, Plavix 75 mg daily, prednisone 10 mg daily, Renagel 60 mg with meals. LABORATORY DATA: Shows blood sugar this morning 144. IMPRESSION AND PLAN: Cardiomyopathy; pulmonary hypertension; chronic obstructive lung disease; interstitial infiltrate; hilar adenopathy; renal failure, dialysis dependent; fluid overloaded; diabetes; hypertension; oropharyngeal dysphagia, on modified diet. Pulmonary point view, doing okay. Encourage bilevel positive airway pressure, keep head at 45 degrees, taper off steroids in the next 3 to 4 days. 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 oropharyngeal dysphagia, on modified diet. Thank you and we will follow with you. Kathrine Mckeon MD [facility] # [id number]
[2017-06-30] MEDS: Cefepime 0.5 GM in Sodium Chloride 0.9% 100 ML IVPB SCH (05:23)
[2017-06-30] MEDS: Insulin Reg-MEDIUM-Coverage SC SCH ×4 (06:55→22:24)
[2017-06-30] MEDS: Multivitamin Vitamin B Complex (Nephro-Vite) Tab PO SCH (08:33)
[2017-06-30 11:28] LABS: BASO # 0.02 K/mm3 (0.0-2.0); BASO % 0.1 % (0.0-3.0); EOS # 0.1 (0.0-0.7); EOS % 0.3 % (1.5-5.0); GRAN # 12.49 (1.4-6.5); GRAN % 84.6 % (50.0-68.0); HEMOGLOBIN 11.9 g/dL (14.0-18.0); LYMPH # 0.9 (1.2-3.4); MEAN CELL VOLUME 98.7 fl (80.0-105.0); MEAN CORPUSCULAR HEMOGLOBIN 31.8 pg (25.0-35.0); MEAN CORPUSCULAR HGB CONC 32.2 g/dl (31.0-37.0); MEAN PLATELET VOLUME 11.6 fl (7.0-11.0); MONO # 1.3 (0.1-0.6); RBC 3.74 10^6/uL (3.5-6.1); RED CELL DISTRIBUTION WIDTH 16.2 % (11.5-14.5); WHITE BLOOD COUNT 14.8 10^3/ul (4.5-11.0)
[2017-06-30 11:48] LABS: ALB/GLOB RATIO 1.3 (1.1-1.8); ALBUMIN 3.6 g/dL (3.0-4.8); CALCIUM 9.3 mg/dL (8.4-10.5); MAGNESIUM 2.5 mg/dL (1.7-2.2)
--- NOTE | 2017-06-30 14:11 | PN ---
DATE: SUBJECTIVE: An 81-year-old white male with exacerbation of COPD, end-stage renal disease, hypertension, and CAD. The patient is very fatigued today, did not sleep well. Continues physical therapy and hemodialysis for ultrafiltration and for chronic renal failure. The patient was seen in consultation by Dr. Hannon, awaiting for the echo results to see if there is decrease in his ejection fraction. Plan is to continue ultrafiltration, hemodialysis, and physical therapy. Gustavo Garcia MD
[2017-06-30] MEDS: guaiFENesin 600 mg ER Tab PO SCH ×2 (14:59→18:43)
[2017-06-30 17:33] VITALS: TEMP 97.6
--- NOTE | 2017-06-30 17:56 | CARD ---
APPROVED REPORT EKG Measurement Heart [id number] <Conclusion> Atrial Flutter with 3:1 conduction Left axis deviation Left bundle branch block Abnormal ECG
--- NOTE | 2017-06-30 21:49 | PN ---
DATE: 06/30/2017 SUBJECTIVE: Patient is seen in the dialysis unit. He is awake, he is alert, he is comfortable. PHYSICAL EXAMINATION: GENERAL: An elderly male, sitting in chair. VITAL SIGNS: Blood pressure 113/56, heart rate 72, respiratory rate 20, temperature 98.2. HEENT: Normocephalic, atraumatic. NECK: Supple, no JVD. LUNGS: Bilateral basilar rales. CARDIAC: S1, S2, regular rate and rhythm, no murmur, no rub. ABDOMEN: Obese, distended, soft, nontender, bowel sounds present. EXTREMITIES: 1+ pitting edema of the lower extremities. INTAKE AND OUTPUT: Not charted. LABORATORY DATA: WBC 14.8, hemoglobin 11.9, hematocrit 37, platelets 136. Sodium 134, potassium 5.6, chloride 94, CO2 of 18, BUN 122, creatinine 7.5, glucose 296, calcium 9.3, phosphorus 6.8, magnesium 2.5. ASSESSMENT/PLAN: 1. Bilateral pneumonia. 2. Congestive heart failure. 3. Noninsulin-dependent diabetes mellitus. 4. Hypertension. 5. End-stage renal disease. PLAN: 1. CHF, now compensated. 2. Pneumonia, improving. 3. Stable dialysis. 4. Continue physical therapy. Hyun Galarza MD
[2017-06-30] MEDS: Insulin Detemir 100 units/ml Vial (Levemir) SC SCH (22:24)
[2017-07-01] MEDS: Albuterol-Ipratrop 3 mg / 0.5 (3 ml) UD IH SCH ×3 (01:58→13:33)
[2017-07-01] MEDS: Acetylcysteine 20% Inhal Soln (4ml) IH SCH ×3 (01:58→13:33)
[2017-07-01] MEDS: Insulin Reg-MEDIUM-Coverage SC SCH ×2 (06:35→11:43)
--- NOTE | 2017-07-01 08:12 | CP.PCM.PN ---
Subjective - Date & Time of Evaluation Date of Evaluation: 07/01/17 Time of Evaluation: 07:00 - Subjective Subjective: Stable in TCU. No CP. SOB better. No CP. HD yesterday. V/S noted. PE: Lungs: rhonchi Cor.: rreg, sys murmur Abd.: soft Ext.: + edema Neuro.: alert ECG 25: A. Flutter, LBBB Labs 06/30 noted. Objective - Vital Signs/Intake and Output Vital Signs (last 24 hours): Temp Pulse Resp BP Pulse Ox 97.6 F 72 20 145/59 L 94 L 06/30/17 17:33 06/30/17 18:43 06/30/17 17:33 06/30/17 18:43 06/30/17 17:33 - Medications Medications: Current Medications Acetylcysteine (Acetylcysteine 20%) 4 ml IH [id number] HOANG PRN Reason: Protocol Last Admin: 07/01/17 07:34 Dose: 4 ml Albuterol/Ipratropium (Duoneb 3 Mg/0.5 Mg (3 Ml) Ud) 3 ml IH [id number] HOANG PRN Reason: Protocol Last Admin: 07/01/17 07:34 Dose: 3 ml Aspirin (Ecotrin) 81 mg PO 0800 HOANG PRN Reason: Protocol Last Admin: 06/30/17 08:32 Dose: 81 mg Atorvastatin Calcium (Lipitor) 20 mg PO DIN HOANG PRN Reason: Protocol Last Admin: 06/30/17 18:00 Dose: 20 mg Clopidogrel Bisulfate (Plavix) 75 mg PO DAILY HOANG PRN Reason: Protocol Last Admin: 06/30/17 15:00 Dose: 75 mg Diphenhydramine HCl (Benadryl) 25 mg PO Q6 PRN; Protocol PRN Reason: pruritis Last Admin: 06/26/17 21:27 Dose: 25 mg Famotidine (Pepcid) 20 mg PO HS HOANG Last Admin: 06/30/17 22:25 Dose: 20 mg Guaifenesin (Mucinex La) 600 mg PO BID HOANG PRN Reason: Protocol Last Admin: 06/30/17 18:43 Dose: 600 mg Heparin Sodium (Porcine) (Heparin) 5,000 units SC Q12 HOANG PRN Reason: Protocol Last Admin: 06/30/17 22:23 Dose: 5,000 units Insulin Detemir (Levemir) 40 unit SC HS [facility] PRN Reason: Protocol Last Admin: 06/30/17 22:24 Dose: 40 unit Insulin Human Regular (Humulin R Med) 0 units SC ACHS [facility] PRN Reason: Protocol Last Admin: 07/01/17 06:35 Dose: 3 units Isosorbide Mononitrate (Imdur Er) 30 mg PO BID [facility] Last Admin: 06/30/17 18:42 Dose: 30 mg Losartan Potassium (Cozaar) 50 mg PO DAILY [facility] PRN Reason: Protocol Last Admin: 06/30/17 14:44 Dose: Not Given Metoprolol Tartrate (Lopressor) 25 mg PO 0800,1800 [facility] PRN Reason: Protocol Last Admin: 06/30/17 18:43 Dose: Not Given Prednisone (Prednisone Tab) 10 mg PO DAILY [facility] Last Admin: 06/30/17 15:00 Dose: 10 mg Sevelamer HCl (Renagel) 1,600 mg PO WM [facility] Last Admin: 06/30/17 18:00 Dose: 1,600 mg Vitamin B Complex/Vit C/Folic Acid (Nephro-Jarret) 1 tab PO 0800 [facility] PRN Reason: Protocol Last Admin: 06/30/17 08:33 Dose: 1 tab - Labs Labs: 06/30/17 10:55 06/30/17 10:55 Assessment and Plan - Assessment and Plan (Free Text) Assessment: Dyspnea/Congestion Volume Overload CHF COPD/Bronchitis/Former Smoker A. Flutter, new this admission. CHADs Score 5. CAD/CABG/Severe LVD on echo with Moderate , Mild AI, Severe PH CKD/HD HBP HLD Gall Stones PFO on old echo report Dysphagia Plan: Continue HD and volume removal Consider A/C with warfarin for A. Flutter, CHADs Score = 5 F/U CXR OOB/PT/Rehab Efforts
--- NOTE | 2017-07-01 08:46 | PN ---
DATE: 06/30/2017 REFERRING PHYSICIAN: Gustavo Garcia MD. SUBJECTIVE: He is examined and seen in dialysis chair. Night was unremarkable. Sleepy, arousable. Cough is better. Decreased shortness of breath. No nausea. No vomiting. No diarrhea. Still has leg swelling. OBJECTIVE: GENERAL: In no acute distress. VITAL SIGNS: Temperature is 98, heart rate is 72, respiratory rate is 20, blood pressure is 145/59, pulse ox 94% on room air. HEENT: Moist mucous membranes. Crowded airway. NECK: Supple. No JVD. LUNGS: Diffused crackles and scattered rhonchi. HEART: S1 and S2. ABDOMEN: Soft, nontender. No organomegaly. EXTREMITIES: There is no edema. NEUROLOGIC: Awake and alert. Follows simple command. MEDICATIONS: He is on Mucomyst inhaler twice a day, Benadryl 25 mg q.6 hours p.r.n., Cozaar 50 mg daily, DuoNeb q.6 hours, Ecotrin 81 mg daily, heparin 5000 units subcutaneous q.12 hours, insulin coverage, Imdur ER 50 mg twice daily, Levemir 40 units subcutaneously at bed time, Lipitor 20 mg daily, metoprolol tartrate 25 mg twice a day, Mucinex LA 600 mg twice a daily, Nephro-Jarret daily, Pepcid 20 mg at bedtime, Plavix 75 mg daily, prednisone 10 mg daily, Renagel 1600 mg with meals. LABORATORY DATA: Shows hemoglobin 11.9, hematocrit 36.9, WBC 14.8, and platelet count is 136. Sodium 134, potassium 4.6, chloride 94, bicarbonate 18, BUN is 12, creatinine is 7.5, glucose 296, calcium is 9.3, phosphorus 6.8, magnesium 2.5. AST 33, ALT 67, total protein is 6.4. He was dialyzed after the labs. IMPRESSION AND PLAN: Cardiomyopathy, pulmonary hypertension, chronic obstructive lung disease, interstitial infiltrates, hilar adenopathy, renal failure, dialysis dependent, fluid overloaded, hyperkalemia,diabetes, hypertension, oropharyngeal dysphagia, on modified diet. 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 May have to restrict p.o. fluid intake, encourage CPAP use, avoid sedation at night. Thank you and we will follow with you. Kathrine Mckeon MD [facility] # [id number]
[2017-07-01] MEDS: Multivitamin Vitamin B Complex (Nephro-Vite) Tab PO SCH (08:54)
[2017-07-01 09:42] LABS: INR 1.11 (0.93-1.08); PARTIAL THROMBOPLASTIN TIME 26.3 Seconds (25.1-36.5); PROTHROMBIN TIME 12.8 SECONDS (9.4-12.5)
[2017-07-01] MEDS: guaiFENesin 600 mg ER Tab PO SCH (11:00)
[2017-07-01 11:20] VITALS: BP 129/55
[2017-07-01 13:33] VITALS: PULSE 71; O2SAT 96
--- NOTE | 2017-07-01 23:53 | DS ---
HISTORY OF PRESENT ILLNESS: An 81-year-old white male, seen in TCU. The patient is being discharged home after an extended period of rehabilitation for exacerbation of COPD and end-stage renal disease. The patient also had episodes of bleeding from a shunt, which has resolved. The patient had extensive physical therapy and occupational therapy. Continue hemodialysis and ultrafiltration to remove fluids. Vital signs are stable. The patient feels improved. He is less short of breath. There is no further bleeding from the shunt. He also has decreased rhonchi and rales at both lung bases. He does have some dysphagia because of cervical kyphosis. The patient will be discharged home to continue outpatient hemodialysis and to complete a course of p.o. antibiotics. 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 Gustavo Garcia MD
== END 2017-07-01 14:30 | disposition home health service (06) | DRG 190 ==
LOC: TRCU 15:59
PROVIDERS: ADMIT Internal Medicine; ATTEND Internal Medicine
PROC: 5A09557 Assistance with Respiratory Ventilation, Greater than 96 Consecutive Hours, Continuous Positive Airway Pressure (ICD-10-PCS; 2017-06-23)
PROC: 5A1D70Z Performance of Urinary Filtration, Intermittent, Less than 6 Hours Per Day (ICD-10-PCS; 2017-06-23)
PROC: F07Z9FZ Gait Training/Functional Ambulation Treatment using Assistive, Adaptive, Supportive or Protective Equipment (ICD-10-PCS; principal; 2017-06-24)
PROC: F08Z4FZ Home Management Treatment using Assistive, Adaptive, Supportive or Protective Equipment (ICD-10-PCS; 2017-06-24)
PROC: 3E0F7GC Introduction of Other Therapeutic Substance into Respiratory Tract, Via Natural or Artificial Opening (ICD-10-PCS; 2017-06-24)
PROC: 5A1D70Z Performance of Urinary Filtration, Intermittent, Less than 6 Hours Per Day (ICD-10-PCS; 2017-06-25)
PROC: 5A1D70Z Performance of Urinary Filtration, Intermittent, Less than 6 Hours Per Day (ICD-10-PCS; 2017-06-26)
PROC: 5A1D70Z Performance of Urinary Filtration, Intermittent, Less than 6 Hours Per Day (ICD-10-PCS; 2017-06-27)
PROC: 5A1D70Z Performance of Urinary Filtration, Intermittent, Less than 6 Hours Per Day (ICD-10-PCS; 2017-06-28)
PROC: 5A1D70Z Performance of Urinary Filtration, Intermittent, Less than 6 Hours Per Day (ICD-10-PCS; 2017-06-30)
DX: J44.1 Chronic obstructive pulmonary disease with (acute) exacerbation (principal); J18.9 Pneumonia, unspecified organism; I13.2 Hypertensive heart and chronic kidney disease with heart failure and with stage 5 chronic kidney disease, or end stage renal disease; N18.6 End stage renal disease; I27.20 Pulmonary hypertension, unspecified; E11.22 Type 2 diabetes mellitus with diabetic chronic kidney disease; E87.5 Hyperkalemia; E83.39 Other disorders of phosphorus metabolism; I50.9 Heart failure, unspecified; I42.9 Cardiomyopathy, unspecified; N25.81 Secondary hyperparathyroidism of renal origin; T82.838A Hemorrhage due to vascular prosthetic devices, implants and grafts, initial encounter; J44.0 Chronic obstructive pulmonary disease with (acute) lower respiratory infection; R13.12 Dysphagia, oropharyngeal phase; M40.202 Unspecified kyphosis, cervical region; E78.5 Hyperlipidemia, unspecified; Z99.2 Dependence on renal dialysis; D63.1 Anemia in chronic kidney disease; I25.10 Atherosclerotic heart disease of native coronary artery without angina pectoris; R59.0 Localized enlarged lymph nodes; G47.30 Sleep apnea, unspecified; Y83.2 Surgical operation with anastomosis, bypass or graft as the cause of abnormal reaction of the patient, or of later complication, without mention of misadventure at the time of the procedure; K80.20 Calculus of gallbladder without cholecystitis without obstruction; Z95.1 Presence of aortocoronary bypass graft; Z87.891 Personal history of nicotine dependence

== ENCOUNTER 2017-10-07 12:16 | Inpatient (IN) | payer MEDICARE, BC ==
[2017-10-07 12:24] VITALS: BMI 26.6
[2017-10-07] MEDS ORDERED: Albuterol-Ipratrop 3 mg / 0.5 (3 ml) UD IH STA (12:32)
--- NOTE | 2017-10-07 12:49 | ED PDOC ---
Arrival/HPI - General Time Seen by Provider: 10/07/17 12:18 Historian: Patient - History of Present Illness Narrative History of Present Illness (Text): 10/07/17 12:45 An 81 year old male, whose past medical history includes GA, diabetes, COPD and ESRF (on dialysis Friday, Friday and Friday), presents to the emergency department complaining of shortness of breath. The patient notes that after hemodialysis yesterday he got home and was experiencing some coughing, congestion, wheezing and shortness of breath. He states that his symptoms worsened overnight which prompted him to come to the emergency department today. The patient denies any history of smoking and drinking. The patient denies fevers, chills, headache, dizziness, chest pain, sputum, abdominal pain, nausea, vomiting, diarrhea, back pain, neck pain, urinary/bowel changes, or any other complaint. PMD: Dr. Garcia Time/Duration: Other (Yesterday) Symptom Onset: Sudden Symptom Course: Unchanged Activities at Onset: Rest, Light Context: Home Past Medical History - Provider Review Nursing Documentation Reviewed: Yes - Infectious Disease Hx of Infectious Diseases: None - Tetanus Immunization Tetanus Immunization: Unknown - Cardiac Hx Hypertension: Yes - Pulmonary Hx Chronic Obstructive Pulmonary Disease (COPD): Yes - Neurological Hx Neurological Disorder: No - HEENT Other/Comment: BILATERAL [place]UTSARARMIUT - Renal Hx Renal Failure: Yes (HD (M/W/F)) - Endocrine/Metabolic Hx Diabetes Mellitus Type 1: Yes - Hematological/Oncological Hx Blood Disorders: No - Integumentary Other/Comment: dry and slightly discolored skin ble, buttocks slightly reddened - Musculoskeletal/Rheumatological Hx Falls: No - Gastrointestinal Hx Gastrointestinal Disorders: Yes - Genitourinary/Gynecological Hx Reproductive Disorders: No - Psychiatric Hx Emotional Abuse: No Hx Physical Abuse: No Hx Substance Use: No - Surgical History Hx Open Heart Surgery: Yes - Anesthesia Hx Anesthesia: Yes Hx Anesthesia Reactions: Yes (CRYING & CONFUSION) Hx Malignant Hyperthermia: No - Suicidal Assessment Feels Threatened In Home Enviroment: No Family/Social History - Physician Review Nursing Documentation Reviewed: Yes Family/Social History: No Known Family HX Smoking Status: Former Smoker Hx Alcohol Use: No Hx Substance Use: No Hx Substance Use Treatment: No Allergies/Home Meds Allergies/Adverse Reactions: Allergies No Known Allergies Allergy (Verified 06/28/17 02:52) Home Medications: Home Meds Medication Instructions Recorded Confirmed Aspirin [Aspirin Chewable] 81 mg PO Q4XW 07/11/16 06/28/17 Clopidogrel [Plavix] 75 mg PO DAILY 02/24/17 06/28/17 Insulin Lispro-HIGH [humALOG HIGH] 0 units SC ACB 02/24/17 06/28/17 Isosorbide Mononitrate [Imdur] 60 mg PO DAILY 02/24/17 06/28/17 Review of Systems - Physician Review All systems were reviewed & negative as marked: Yes - Review of Systems Constitutional: absent: Fevers, Night Sweats Respiratory: SOB, Cough, Wheezing. absent: Sputum Cardiovascular: absent: Chest Pain Gastrointestinal: absent: Abdominal Pain, Stool Changes, Diarrhea, Nausea, Vomiting Genitourinary Male: absent: Urinary Output Changes Musculoskeletal: absent: Back Pain, Neck Pain Neurological: absent: Headache, Dizziness Physical Exam Vital Signs Reviewed: Yes Vital Signs Temp Pulse Resp BP Pulse Ox 10/07/17 12:30 20 10/07/17 12:24 98.2 F 74 18 114/61 97 Temperature: Afebrile Blood Pressure: Normal Pulse: Regular Respiratory Rate: Normal Appearance: Positive for: Non-Toxic, Other (Chronically appearing. ) Pain Distress: None Mental Status: Positive for: Alert and Oriented X 3 - Systems Exam Head: Present: Atraumatic, Normocephalic Pupils: Present: PERRL Extroacular Muscles: Present: EOMI Conjunctiva: Present: Normal Mouth: Present: Moist Mucous Membranes Neck: Present: Normal Range of Motion Respiratory/Chest: Present: Respiratory Distress (Mild respiratory distress. ), Accessory Muscle Use, Wheezes (Wheezes throughout), Retracting, Rhonchi ( Rhonchi throughout.) Cardiovascular: Present: Regular Rate and Rhythm, Normal S1, S2. No: Murmurs Abdomen: No: Tenderness, Distention, Peritoneal Signs Back: Present: Normal Inspection Upper Extremity: Present: Normal Inspection. No: Cyanosis, Edema Lower Extremity: Present: Edema (Bilateral trace lower extremity edema.) Neurological: Present: GCS=15, CN II-XII Intact, Speech Normal Skin: Present: Warm, Dry, Other ( Generalized ecchymosisat various stages of healing. ). No: Rashes Psychiatric: Present: Alert, Oriented x 3, Normal Insight, Normal Concentration Medical Decision Making ED Course and Treatment: 10/07/17 12:52 Impression: An 81 year old male presents to the emergency department complaining of worsening shortness of breath, cough, congestion, and wheezing since yesterday. Plan: -- EKG -- Chest X-ray -- Labs -- Duoneb and SOLU-Medrol -- Reassess and disposition Progress Notes: CHEST X-RAY Dictator : Joshua Fuchs MD Report Date : 10/07/2017 13:25:21 IMPRESSION: No active disease. 10/07/17 14:07 Symptoms mildly improved posttreatment. Discussed with . Indeterminate troponin. May be related to renal failure. Will place on telemetry. 10/07/17 14:08 EKG shows normal sinus rhythm rate approximately 75 with a left bundle branch block. - Lab Interpretations Lab Results: 10/07/17 13:21 10/07/17 13:21 Lab Results 10/07/17 13:21: Sodium 141, Chloride 96 L, Potassium 4.1, Carbon Dioxide 30, Anion Gap 19, BUN 51 H, Creatinine 5.3 H, Est GFR ( Amer) 13, Est GFR ( Non-Af Amer) 10, Random Glucose 138 H, Calcium 10.0, Magnesium 2.5 H, Total Bilirubin 1.1, AST 42, ALT 37, Alkaline Phosphatase 79, Lactate Dehydrogenase 480, Total Creatine Kinase 54, Troponin I 0.06, Total Protein 6.7, Albumin 3.9, Globulin 2.8, Albumin/Globulin Ratio 1.4 10/07/17 13:21: pO2 39, VBG pH 7.31 L, VBG pCO2 64.0 H, VBG HCO3 32.2 H, VBG Total CO2 34.2 H, VBG O2 Sat (Calc) 72.0 H, VBG Base Excess 4.0 H, VBG Potassium 4.1, Sodium 136.0, Chloride 96.0 L, Glucose 147 H, Lactate 1.9, FiO2 21.0, Venous Blood Potassium 4.1 10/07/17 13:21: PT 11.2, INR 0.98, APTT 25.8 10/07/17 13:21: WBC 12.8 H, RBC 3.79, Hgb 12.0 L, Hct 39.2 L, MCV 103.4 D, MCH 31.7, MCHC 30.6 L, RDW 17.3 H, Plt Count 153, MPV 9.7, Gran % 84.2 H, Lymph % ( Auto) 5.5 L, [place] % (Auto) 8.1 H, Eos % (Auto) 2.0, Baso % (Auto) 0.2, Gran # 10.77 H, Lymph # (Auto) 0.7 L, [place] # (Auto) 1.0 H, Eos # (Auto) 0.3, Baso # ( Auto) 0.02 I have reviewed the lab results: Yes - RAD Interpretation Radiology Orders: 10/07/17 12:33 CHEST PORTABLE [RAD] Stat - EKG Interpretation Interpreted by ED Physician: Yes Type: 12 lead EKG - Medication Orders Current Medication Orders: Discontinued Medications Albuterol/Ipratropium (Duoneb 3 Mg/0.5 Mg (3 Ml) Ud) 3 ml IH STAT STA Stop: 10/07/17 12:33 Last Admin: 10/07/17 13:04 Dose: 3 ml Methylprednisolone (Solu-Medrol) 125 mg IVP STAT STA Stop: 10/07/17 12:33 Last Admin: 10/07/17 13:05 Dose: 125 mg IVP Administration Document 10/07/17 13:05 SELVIN (Rec: 10/07/17 13:05 SELVIN [id number]) Charges for Administration # of IVP Administrations 1 - Scribe Statement The provider has reviewed the documentation as recorded by the Marisaibe Jessica Roper Provider Scribe Attestation: All medical record entries made by the Scribe were at my direction and personally dictated by me. I have reviewed the chart and agree that the record accurately reflects my personal performance of the history, physical exam, medical decision making, and the department course for this patient. I have also personally directed, reviewed, and agree with the discharge instructions and disposition. Disposition/Present on Arrival - Present on Arrival Any Indicators Present on Arrival: No History of DVT/PE: No History of Uncontrolled Diabetes: No Urinary Catheter: No History of Decub. Ulcer: No History Surgical Site Infection Following: None - Disposition Have Diagnosis and Disposition been Completed?: Yes Diagnosis: COPD exacerbation, Elevated troponin Disposition: HOSPITALIZED Disposition Time: 14:08 Patient Plan: Observation, Telemetry Patient Problems: Current Active Problems Problem Status Onset COPD exacerbation Acute Elevated troponin Acute Condition: FAIR Referrals: Gustavo Garcia MD [Primary Care Provider] - Follow up with primary
--- NOTE | 2017-10-07 13:26 | RAD ---
HISTORY: sob COMPARISON: 06/18/2017 FINDINGS: LUNGS: No active pulmonary disease. PLEURA: No significant pleural effusion identified, no pneumothorax apparent. CARDIOVASCULAR: Moderate cardiomegaly. Minimal vascular congestion. OSSEOUS STRUCTURES: Sternal wires VISUALIZED UPPER ABDOMEN: Normal. OTHER FINDINGS: None. IMPRESSION: No active disease.
[2017-10-07 13:32] LABS: VENOUS BLOOD GAS PO2 39 mm/Hg (30-55); VENOUS BLOOD PH 7.31 (7.32-7.43)
[2017-10-07 13:35] LABS: BASO # 0.02 K/mm3 (0.0-2.0); BASO % 0.2 % (0.0-3.0); EOS # 0.3 (0.0-0.7); GRAN # 10.77 (1.4-6.5); GRAN % 84.2 % (50.0-68.0); LYMPH # 0.7 (1.2-3.4); LYMPH % 5.5 % (22.0-35.0); MEAN CELL VOLUME 103.4 fl (80.0-105.0); MEAN CORPUSCULAR HEMOGLOBIN 31.7 pg (25.0-35.0); MEAN CORPUSCULAR HGB CONC 30.6 g/dl (31.0-37.0); MEAN PLATELET VOLUME 9.7 fl (7.0-11.0); MONO % 8.1 % (1.0-6.0); RBC 3.79 10^6/uL (3.5-6.1); RED CELL DISTRIBUTION WIDTH 17.3 % (11.5-14.5); WHITE BLOOD COUNT 12.8 10^3/ul (4.5-11.0)
[2017-10-07 13:47] LABS: ALB/GLOB RATIO 1.4 (1.1-1.8); ALBUMIN 3.9 g/dL (3.0-4.8)
[2017-10-07 13:58] LABS: INR 0.98 (0.93-1.08); PARTIAL THROMBOPLASTIN TIME 25.8 Seconds (25.1-36.5); PROTHROMBIN TIME 11.2 SECONDS (9.4-12.5); TROPONIN I 0.06 ng/mL
--- NOTE | 2017-10-07 14:56 | CARD ---
APPROVED REPORT EKG Measurement Heart [id number] <Conclusion> Normal sinus rhythm Left bundle branch block Abnormal ECG
[2017-10-07] MEDS: guaiFENesin 600 mg ER Tab PO SCH (18:53)
[2017-10-07] MEDS: Albuterol-Ipratrop 3 mg / 0.5 (3 ml) UD IH SCH ×2 (19:48→19:49)
[2017-10-07] MEDS: Acetylcysteine 20% Inhal Soln (4ml) IH SCH (19:49)
[2017-10-07] MEDS: MethylPREDNISolone 40 mg Vial IVP SCH (21:24)
[2017-10-07] MEDS: Insulin Detemir 100 units/ml Vial (Levemir) SC SCH (22:30)
[2017-10-07] MEDS ORDERED: Pneumococcal 23-Valent Vaccine IM ONE (22:35)
[2017-10-08] MEDS: Albuterol-Ipratrop 3 mg / 0.5 (3 ml) UD IH SCH ×6 (01:22→19:35)
[2017-10-08] MEDS: Acetylcysteine 20% Inhal Soln (4ml) IH SCH ×4 (01:22→19:35)
[2017-10-08] MEDS ORDERED: Insulin Lispro (HUMAlog) HIGH Coverage SC SCH (07:30)
[2017-10-08] MEDS: MethylPREDNISolone 40 mg Vial IVP SCH ×2 (09:32→21:23)
[2017-10-08] MEDS: cefTRIAXone 1 gm 1 GM/100 ML BAG IVPB SCH (09:33)
[2017-10-08] MEDS: Multivitamin Vitamin B Complex (Nephro-Vite) Tab PO SCH (09:34)
[2017-10-08] MEDS: guaiFENesin 600 mg ER Tab PO SCH ×2 (09:34→18:32)
[2017-10-08] MEDS ORDERED: Iohexol 350 MG/100 ML VIAL ONE ×2 (11:48→12:56)
[2017-10-08] MEDS: Insulin Reg-LOW-Coverage SC SCH ×3 (12:04→21:38)
--- NOTE | 2017-10-08 13:22 | HP ---
HISTORY OF PRESENT ILLNESS: An 81-year-old white male, history of COPD; history of end-stage renal disease, on hemodialysis; hypertension; CAD. The patient was seen by the visiting nurse yesterday, found to be severely short of breath, coughing, rhonchi bilaterally with drop in his O2 saturation. He was transferred to the emergency room for admission. On admission, the patient was found to be actively short of breath with rhonchi bilaterally and coughing. Vital signs were stable. Temperature 98.1, blood pressure of 137/72. White count was 12,800 with a left shift. BUN and creatinine were 51 and 5.3 consistent with his end-stage renal disease. PHYSICAL EXAMINATION: GENERAL: Shows a well-developed, but thin white male, in mild respiratory distress. HEENT: Essentially within normal limits. HEART: Regular sinus rhythm with a systolic ejection murmur at the left sternal border. CHEST: Reveals rhonchi and rales at both lung figueroa, particularly on the left. EXTREMITIES: Without any cyanosis, clubbing, edema. NEUROLOGICAL: Grossly intact. The patient has some kyphoscoliosis and inability to lift his head completely. LABORATORY DATA: On admission, his pCO2 was 64 and his pO2 was 72. His sugar was elevated at 339. Magnesium was 2.5. Initial troponins were negative. Initial chest x-ray on this patient revealed chronic changes. Moderate cardiomegaly. Mild vascular congestion. No effusion. No evidence of pneumonia on plain films. Repeat CT is ordered. IMPRESSION: An 81-year-old white male with history of chronic obstructive pulmonary disease, history of pneumonia in the past, end-stage renal disease, coronary artery disease, hypertension and diabetes mellitus. Presenting with exacerbation of chronic obstructive pulmonary disease and hypoxia. Gustavo Garcia MD
--- NOTE | 2017-10-08 14:00 | CT ---
PROCEDURE: CT Chest with contrast HISTORY: sob COMPARISON: Comparison made with prior CT scan chest 06/19/2017. TECHNIQUE: Contiguous axial images were obtained through the chest before and following intravenous contrast enhancement. Sagittal and coronal reconstructions were performed. IV contrast: 100 cc Omnipaque 350 contrast material. Radiation dose (DLP): 1062.45 mGy-cm. This CT exam was performed using one or more of the following dose reduction techniques: Automated exposure control, adjustment of the mA and/or kV according to patient size, and/or use of iterative reconstruction technique. FINDINGS: LUNGS: There does appear to be at mild compressive type atelectasis in the lung bases right greater than left knee. In addition, there also appears to be some subsegmental atelectasis along the minor fissure. . The interstitial markings appear increased consistent with mild vascular congestion. MEDIASTINUM: Heart is enlarged. The ascending thoracic aorta measures approximately 3.6 cm and descending thoracic aorta measures approximately 2.1 cm. Partially calcified atherosclerotic plaque seen along thoracic aorta as well as origins of the great vessels. No evidence of occlusion, significant stenosis or dissection. . The right brachiocephalic and left common carotid artery arise from a common trunk. Pulmonary trunk measures approximately 3.4 cm. The the study was not dedicated to evaluate for pulmonary emboli, no large central filling defects seen within the pulmonary trunk, right and left main or lobar or segmental branches. There are several small to medium-sized mediastinal lymph nodes the largest in the right precarinal region measuring 15 mm decreased from prior study which measured 2.1 cm. The central airways are midline and patent. No large central endoluminal lesions are identified. There is a small hiatal hernia with slight wall thickening of the distal esophagus likely due to protrusion of gastric mucosa. Possibility of esophagitis not excluded. PLEURA: Previously noted small bilateral effusions have resolved. No evidence of pneumothorax. BONES: Mild multilevel degenerative spondylosis of the thoracic spine. UPPER ABDOMEN: Cholelithiasis. OTHER FINDINGS: Minimal changes of bilateral gynecomastia. IMPRESSION: Bibasilar atelectasis right greater than left. There is subsegmental atelectasis seen along the minor fissure. Interval resolution previously noted small bilateral effusions. . Mild vascular congestive changes felt be present. Marked cardiomegaly. Interval decreased right sided pretracheal -precarinal lymph node
--- NOTE | 2017-10-08 16:12 | CON ---
DATE: 10/08/2017 PULMONARY CONSULT REFERRING PHYSICIAN: Gustavo Garcia MD. REASON FOR CONSULT: Cough, shortness of breath. HISTORY OF PRESENT ILLNESS: This is an 81-year-old gentleman, known to me from previous admission. Has renal failure, dialysis dependent; chronic obstructive lung disease; interstitial infiltrate; diabetes; cardiomyopathy; coronary artery disease; history of for oropharyngeal dysphagia; suspected sleep apnea syndrome; cardiomyopathy with pulmonary hypertension. Comes in with cough, shortness of breath. No nausea. No vomiting. No diarrhea. No significant leg swelling. Started on IV and inhaled bronchodilator. No hemoptysis. No hematemesis. No hematuria. PAST MEDICAL HISTORY: As per history of present illness. ALLERGIES: NONE KNOWN. SOCIAL HISTORY: Still on and off use of cigarettes. Denies any alcohol use. FAMILY HISTORY: No significant cardiopulmonary disease reported. MEDICATIONS: He is on Mucomyst 20% inhale every 6 hours, aspirin 81 mg daily, doxycycline 100 mg twice a day, DuoNeb every 6 hours, insulin coverage, Imdur 60 mg daily, Levemir 40 units subcu at bedtime, metoprolol tartrate 25 mg twice a day, Mucinex 600 mg twice a day, Nephro vitamins daily, Plavix 77 g daily, Rocephin 1 g IV daily, Solu-Medrol 20 mg every 12 hours. REVIEW OF SYSTEMS: No headache, no rhinitis. Admits to have snoring, daytime sleepy, cough, shortness of breath. No chest pain. No nausea. No vomiting, diarrhea, leg pain, leg swelling. PHYSICAL EXAMINATION: GENERAL: Lying in the bed. Mild distress secondary to cough and shortness of breath. VITAL SIGNS: Temperature is 98, heart rate is 73, respiratory rate is 18, blood pressure 117/64, pulse ox 97% on 3 L nasal cannula. HEENT: Moist mucous membrane. Crowded airway. Mallampati score is 4. NECK: Supple. No JVD. LUNGS: Have bilateral wheezing and scattered rhonchi. HEART: S1 and S2. ABDOMEN: Soft, nontender. No organomegaly. EXTREMITIES: There is no edema. NEUROLOGICAL: Awake and alert, follows simple command. LABORATORY DATA: Shows hemoglobin 12, hematocrit 39.2, WBC 12.8, platelet count is 153. INR 0.98. PTT 26. Has a VBG done yesterday showed pH 7.31, pCO2 OF 64, O2 is 39. Sodium 141, potassium 4.1, chloride 96, bicarbonate 30, BUN 51, creatinine 5.3, glucose 138, calcium is 10, magnesium 2.5, AST 42, ALT 37, alk phos is 79. Troponin 0.05. Albumin is 3.9. Had echocardiogram done on 06/21/2017, which showed right ventricle systolic pressure is 72. Moderate concentric left ventricle hypertrophy. His LV systolic function is severely impaired with global hypokinesia. IMPRESSION AND PLAN: Chronic obstructive lung disease; interstitial infiltrate; hilar adenopathy; renal failure, dialysis dependent; diabetes; severe systolic dysfunction with pulmonary hypertension; oropharyngeal dysphagia; on IV and inhaled bronchodilator, antibiotics, dialysis dependent. 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 Encouraged to get sleep study as outpatient, pulmonary function test as outpatient. Encouraged the patient to avoid environmental toxin. Thank you and we will follow with you. Kathrine Mckeon MD
--- NOTE | 2017-10-08 16:17 | CON ---
DATE: 10/08/2017 REASON FOR CONSULTATION: Shortness of breath, cough, congestion, ESRD. HISTORY OF PRESENT ILLNESS: An 81-year-old male known to me from outpatient hemodialysis. The patient presented with complaints of shortness of breath. He also reported coughing, congestion, and wheezing. He denies any fever, chills. Denies any nausea, vomiting. Denies any chest pain. PAST MEDICAL AND SURGICAL HISTORY: NIDDM, hypertension, CAD, ESRD, CHF, cardiomyopathy, anemia of chronic kidney disease, secondary hyperparathyroidism. FAMILY HISTORY: Hypertension. SOCIAL HISTORY: No smoking, no alcohol use, no IV drug abuse. ALLERGIES: NO KNOWN DRUG ALLERGIES. MEDICATIONS AT HOME: Include Imdur 60 mg daily, guaifenesin, metoprolol 25 b.i.d., Renagel, insulin, aspirin. REVIEW OF SYSTEMS: All systems are reviewed, pertinent positives as mentioned in the history of presenting illness, rest unremarkable. PHYSICAL EXAMINATION: GENERAL: Elderly male, lying in bed, in mild respiratory distress. VITAL SIGNS: Blood pressure 117/64, heart rate 73, respiratory rate 18, temperature 97.5. HEENT: Normocephalic, atraumatic, positive pallor. NECK: Supple, no JVD. LUNGS: Bilateral equal air entry, bilateral rhonchi, decreased breath sounds at bases. CARDIAC: S1 and S2, regular rate and rhythm, no murmur, no rub. ABDOMEN: Obese, distended, soft, nontender, bowel sounds present. EXTREMITIES: No lower extremity edema. INTAKE AND OUTPUT: Not charted. LABORATORY DATA: WBC 12.8, hemoglobin 12, hematocrit 39, platelets 153. Sodium 141, potassium 4.1, chloride 96, CO2 30, BUN 51, creatinine 5.3, glucose 138, calcium 10, magnesium 2.5, AST 42, ALT 37, albumin 3.9. CT of the chest, bibasilar atelectasis, subsegmental atelectasis in the minor fissure, mild vascular congestion, marked cardiomegaly. CURRENT MEDICATIONS: Mucomyst, aspirin, doxycycline 100 every 12, DuoNeb, insulin, Imdur 60, Levemir, Lopressor 25 b.i.d., Nephro-Jarret, Plavix, Renagel, ceftriaxone, Solu-Medrol. ASSESSMENT: 1. Chronic obstructive pulmonary disease exacerbation. 2. Mild congestive heart failure. 3. Noninsulin-dependent diabetes mellitus. 4. Hypertension. 5. Coronary artery disease. 6. End-stage renal disease. 7. Anemia of chronic kidney disease. 8. Secondary hyperparathyroidism. PLAN: 1. Agree with empiric antibiotics. 2. Dialysis today, ultrafiltrated about 2 kg. 3. Reassess for ultrafiltration tomorrow. 4. Monitor fingersticks. 5. Check phosphorus levels. 6. Continue respiratory treatments. Hyun Galarza MD
[2017-10-08] MEDS ORDERED: Albuterol-Ipratrop 3 mg / 0.5 (3 ml) UD IH PRN (20:22)
[2017-10-08] MEDS: Insulin Detemir 100 units/ml Vial (Levemir) SC SCH (21:27)
[2017-10-09] MEDS: Acetylcysteine 20% Inhal Soln (4ml) IH SCH ×4 (01:24→20:28)
[2017-10-09] MEDS: Albuterol-Ipratrop 3 mg / 0.5 (3 ml) UD IH SCH ×4 (01:24→20:27)
[2017-10-09] MEDS: Insulin Reg-LOW-Coverage SC SCH ×4 (10:01→21:23)
[2017-10-09] MEDS: Multivitamin Vitamin B Complex (Nephro-Vite) Tab PO SCH (10:29)
[2017-10-09] MEDS: cefTRIAXone 1 gm 1 GM/100 ML BAG IVPB SCH (10:30)
[2017-10-09] MEDS: guaiFENesin 600 mg ER Tab PO SCH ×2 (10:30→17:54)
[2017-10-09] MEDS: MethylPREDNISolone 40 mg Vial IVP SCH ×2 (10:31→21:25)
--- NOTE | 2017-10-09 10:51 | PN ---
DATE: 10/09/2017 SUBJECTIVE: This is an 81-year-old white male, end-stage renal disease, COPD. Admitted to the hospital with severe cough, difficulty breathing, shortness of breath, hypoxia. The patient had dialysis yesterday. He is on steroids, nebulizer treatments and antibiotics. The patient is markedly improved today. He has less cough, less shortness of breath, less sputum production. He is afebrile. Vital signs are stable. Plan is to continue course of therapy. Gustavo Garcia MD
[2017-10-09] MEDS ORDERED: Levalbuterol 0.63 MG/3 ML Inhal Soln UD IH STA (18:17)
--- NOTE | 2017-10-09 18:39 | CP.PCM.PN ---
Subjective - Date & Time of Evaluation Date of Evaluation: 10/09/17 Time of Evaluation: 18:10 - Subjective Subjective: Called by nurse to evaluate patient, as per nurse patient became more tachypneic , and wheezing right after duoneb treatments. Upon evaluate, patient was tachypneic, tachycardeic, SBP was int he 120s, with O2 sat of 96-97% on 3 litters. Patient denies cp, admits to sob, and feeling uncomfortable. Exam: pulm: diffuse ronchi and wheezes, with rales at the bases. Cardiac: S1S2, RRR, + systolic murmur. Assessment and plan: 81 y/o with COPD exacerbation with possible chf exacerbation - Spoke to Dr Garcia on the phone - Gave stat dose xopenex, and additional 60 mg ivp of solumedrol. - ABG was ordered. - Patient was reevaluate an hour later, with improvement in the symptoms. - Changed duoneb to xopenex for tonight - Due for dialysis tomorrow. - Continue bipap at bed time. Objective - Vital Signs/Intake and Output Vital Signs (last 24 hours): Temp Pulse Resp BP Pulse Ox 98 F 76 24 135/67 99 10/09/17 06:00 10/09/17 06:00 10/09/17 06:00 10/09/17 06:00 10/09/17 06:00 Intake and Output: 10/09/17 10/09/17 06:59 18:59 Intake Total 120 800 Balance 120 800 - Medications Medications: Current Medications Acetylcysteine (Acetylcysteine 20%) 4 ml IH [id number] [facility] Last Admin: 10/09/17 13:24 Dose: 4 ml Albuterol/Ipratropium (Duoneb 3 Mg/0.5 Mg (3 Ml) Ud) 3 ml IH [id number] [facility] Last Admin: 10/09/17 13:25 Dose: 3 ml Albuterol/Ipratropium (Duoneb 3 Mg/0.5 Mg (3 Ml) Ud) 3 ml IH Q4H PRN PRN Reason: Shortness of Breath Last Admin: 10/09/17 17:31 Dose: 3 ml Aspirin (Aspirin Chewable) 81 mg PO [id number]@1000 [facility] Last Admin: 10/09/17 10:31 Dose: 81 mg Clopidogrel Bisulfate (Plavix) 75 mg PO DAILY [facility] Last Admin: 10/09/17 10:30 Dose: 75 mg Diphenhydramine HCl (Benadryl) 25 mg PO Q6 PRN PRN Reason: Itching / Pruritus Last Admin: 10/08/17 20:40 Dose: 25 mg Doxycycline Hyclate (Doryx) 100 mg PO Q12 HOANG PRN Reason: Protocol Last Admin: 10/09/17 10:29 Dose: 100 mg Guaifenesin (Mucinex La) 600 mg PO BID [facility] Last Admin: 10/09/17 17:54 Dose: 600 mg Ceftriaxone Sodium (Rocephin 1 Gram Ivpb) 1 gm in 100 mls @ 100 mls/hr IVPB DAILY [facility] PRN Reason: Protocol Last Admin: 10/09/17 10:30 Dose: 100 mls/hr Insulin Detemir (Levemir) 40 unit SC HS [facility] Last Admin: 10/08/17 21:27 Dose: 40 unit Insulin Human Regular (Humulin R Low) 0 units SC ACHS [facility] PRN Reason: Protocol Last Admin: 10/09/17 17:53 Dose: 3 units Isosorbide Mononitrate (Imdur) 60 mg PO DAILY [facility] Last Admin: 10/09/17 10:30 Dose: 60 mg Methylprednisolone (Solu-Medrol) 20 mg IVP Q12 [facility] Last Admin: 10/09/17 10:31 Dose: 20 mg Metoprolol Tartrate (Lopressor) 25 mg PO BRKDIN [facility] Last Admin: 10/09/17 17:54 Dose: 25 mg Sevelamer HCl (Renagel) 800 mg PO TID [facility] Last Admin: 10/09/17 17:54 Dose: 800 mg Vitamin B Complex/Vit C/Folic Acid (Nephro-Jarret) 1 tab PO DAILY [facility] Last Admin: 10/09/17 10:29 Dose: 1 tab - Labs Labs: PT 11.2 SECONDS (9.4-12.5) 10/07/17 13:21 INR 0.98 (0.93-1.08) 10/07/17 13:21 APTT 25.8 Seconds (25.1-36.5) 10/07/17 13:21
--- NOTE | 2017-10-09 20:05 | PN ---
DATE: 10/09/2017 SUBJECTIVE: The patient is seen lying in bed. He is awake. He is alert. He is in mild respiratory distress. PHYSICAL EXAMINATION: VITAL SIGNS: Blood pressure 135/67, heart rate 76, respiratory rate 24, temperature 98. HEENT: Normocephalic, atraumatic, positive pallor. NECK: Supple, no JVD. LUNGS: Bilateral rhonchi, expiratory wheeze, diffuse rhonchi. CARDIAC: S1 and S2, regular rate and rhythm, no murmur, no rub. ABDOMEN: Obese, distended, soft, nontender, bowel sounds present. EXTREMITIES: No lower extremity edema. INTAKE AND OUTPUT: Not charted. LABORATORY DATA: No labs today. CURRENT MEDICATIONS: Mucomyst, aspirin, Benadryl, doxycycline 100 every 12, DuoNeb, insulin, Levemir, Imdur 60, Lopressor 25 b.i.d., Plavix 75, Renagel 800 t.i.d., Rocephin 1 g daily, Solu-Medrol 20 IV every 12. ASSESSMENT: 1. Chronic obstructive pulmonary disease exacerbation. 2. Congestive heart failure, compensated. 3. Coronary artery disease. 4. Shl-fxrnphx-deuvahbsb diabetes mellitus. 5. Hypertension. 6. End-stage renal disease. 7. Anemia of chronic kidney disease. 8. Secondary hyperparathyroidism/hyperphosphatemia. PLAN: 1. Continue respiratory treatments, Solu-Medrol. 2. Dialysis tomorrow, attempt increased ultrafiltration. 3. Continue empiric antibiotics. 4. Continue Renagel. Hyun Galarza MD
[2017-10-09] MEDS ORDERED: Levalbuterol 0.63 MG/3 ML Inhal Soln UD IH PRN (20:24)
[2017-10-09 20:41] LABS: ARTERIAL BLOOD GAS HEMOGLOBIN 10.7 g/dL (11.7-17.4); ARTERIAL BLOOD GAS O2 CAPACITY 14.7 mL/dl (16-24); ARTERIAL BLOOD GAS O2 CONTENT 14.4 ML/dl (15-23); ARTERIAL BLOOD GAS O2 SAT 98.2 % (95-98); ARTERIAL BLOOD GAS PCO2 43 mm/Hg (35-45); ARTERIAL BLOOD GAS PH 7.39 (7.35-7.45); ARTERIAL BLOOD GAS TCO2 27.3 mmol.L (22-28)
--- NOTE | 2017-10-09 21:02 | PN ---
DATE: 10/09/2017 PULMONARY PROGRESS NOTE REFERRING PHYSICIAN: Gustavo Garcia MD. SUBJECTIVE: He is out of bed to chair. Feels a little better. Still has a cough, sputum production. No nausea. No vomiting. No diarrhea. No significant leg swelling. OBJECTIVE: GENERAL: In no acute distress. VITAL SIGNS: Temp is 98, heart rate is 76, respiratory rate is 20, blood pressure 132/78, pulse ox 99% on 3 L nasal cannula. HEENT: Moist mucous membrane. Crowded airway. Mallampati score is 4. NECK: Supple. No JVD. LUNGS: Have scattered rhonchi and wheezing. HEART: S1 and S2. ABDOMEN: Soft, nontender. No organomegaly. EXTREMITIES: No edema. NEUROLOGICAL: Awake and alert. Follows simple command. LABORATORY DATA: Reviewed. Blood sugar this morning 273. MEDICATIONS: He is on Mucomyst 4 mL inhale every 6 hours, aspirin 81 mg daily, Benadryl p.r.n. basis, doxycycline 100 mg twice a day, DuoNeb every 6 hours [id number], Imdur 60 mg daily, Levemir 40 units subcu at bedtime, metoprolol tartrate 25 mg twice a day, Mucinex LA 600 mg twice a day, Nephro vitamins daily, Plavix 75 mg daily, Renagel 800 mg 3 times a day, Rocephin 1 g IV daily, Solu-Medrol 20 mg every 12 hours. IMPRESSION AND PLAN: Chronic obstructive lung disease, interstitial infiltrate, hilar adenopathy, renal failure, dialysis dependent, diabetes, severe systolic dysfunction with pulmonary hypertension, also has a history of oropharyngeal dysphagia. We will continue IV and inhaled bronchodilator, aggressive dialysis, aspiration precaution. We will have Speech Therapy reevaluate the patient for the oral diet. Encourage continuous positive airway pressure use at nighttime. There may be component of sleep apnea. Thank you and we will follow with you. Kathrine Mckeon MD
[2017-10-09] MEDS: Insulin Detemir 100 units/ml Vial (Levemir) SC SCH (21:24)
[2017-10-09] MEDS: Levalbuterol 0.63 MG/3 ML Inhal Soln UD IH SCH ×2 (23:03→23:05)
[2017-10-10] MEDS: Acetylcysteine 20% Inhal Soln (4ml) IH SCH ×4 (02:18→21:20)
[2017-10-10] MEDS: Levalbuterol 0.63 MG/3 ML Inhal Soln UD IH SCH ×6 (02:19→21:20)
[2017-10-10] MEDS: guaiFENesin 600 mg ER Tab PO SCH (09:45)
[2017-10-10] MEDS: Insulin Reg-LOW-Coverage SC SCH ×4 (09:46→22:16)
[2017-10-10] MEDS: Multivitamin Vitamin B Complex (Nephro-Vite) Tab PO SCH (09:47)
[2017-10-10] MEDS: MethylPREDNISolone 40 mg Vial IVP SCH ×2 (09:48→22:17)
--- NOTE | 2017-10-10 09:49 | PN ---
DATE: 10/10/2017 SUBJECTIVE: An 81-year-old white male, admitted to the hospital with COPD, exacerbation of COPD, end-stage renal disease, CAD, hypertension. The patient still has marked rales and rhonchi in the lung figueroa. He is somewhat improved this morning. He had a difficult night last night with shortness of breath and cough and desaturation. He continues to receive IV antibiotics, steroids, bronchodilators and will have dialysis today to remove more fluid. Chest shows diffuse rhonchi and rales at all lung figueroa, but slightly improved from the day before. Heart examination is regular sinus rhythm. Extremities without cyanosis, clubbing or edema. Gustavo Garcia MD
[2017-10-10] MEDS: cefTRIAXone 1 gm 1 GM/100 ML BAG IVPB SCH (11:00)
[2017-10-10 14:06] LABS: GRAN # 4.71 (1.4-6.5); GRAN % 93.2 % (50.0-68.0); HEMOGLOBIN 10.8 g/dL (14.0-18.0); LYMPH # 0.2 (1.2-3.4); MEAN CORPUSCULAR HEMOGLOBIN 31.8 pg (25.0-35.0); MEAN CORPUSCULAR HGB CONC 31.8 g/dl (31.0-37.0); MEAN PLATELET VOLUME 9.7 fl (7.0-11.0); MONO # 0.1 (0.1-0.6); MONO % 2.8 % (1.0-6.0); PLATELET COUNT 118 10^3/uL (120.0-450.0); RED CELL DISTRIBUTION WIDTH 16.4 % (11.5-14.5); WHITE BLOOD COUNT 5.1 10^3/ul (4.5-11.0)
[2017-10-10 14:22] LABS: ALB/GLOB RATIO 1.4 (1.1-1.8); ALBUMIN 3.5 g/dL (3.0-4.8)
[2017-10-10 14:28] LABS: BAND 1 % (0-2); LYMPHOCYTE 8 % (22.0-35.0); NEUTROPHIL 91 % (50.0-70.0)
[2017-10-10 14:29] LABS: PLATELET ESTIMATE LOW (NORMAL)
--- NOTE | 2017-10-10 19:22 | PN ---
DATE: 10/10/2017 SUBJECTIVE: The patient is seen in the dialysis unit. He is awake. He is alert. PHYSICAL EXAMINATION: GENERAL: Elderly male seen in the dialysis unit. VITAL SIGNS: Blood pressure 139/83, heart rate 98, respiratory rate 20, temperature 97.4. HEENT: Normocephalic, atraumatic, positive pallor. NECK: Supple, no JVD. LUNGS: Bilateral equal air entry, bilateral rhonchi, expiratory wheeze. CARDIAC: S1 and S2, regular rate and rhythm, no murmur, no rub. ABDOMEN: Obese, distended, soft, nontender, bowel sounds present. EXTREMITIES: No lower extremity edema. INTAKE AND OUTPUT: 540/not charted. LABORATORY DATA: WBC 5, hemoglobin 10.8, hematocrit 34, platelet 118. Sodium 137, potassium 4.6, chloride 94, CO2 23, BUN 83, creatinine 5.7, glucose 294, calcium 9, phosphorus 6.5, magnesium 2.2, albumin 3.5. CURRENT MEDICATIONS: Mucomyst, aspirin, Benadryl, doxycycline, insulin, Lopressor, guaifenesin, Plavix, Renagel, Rocephin, Solu-Medrol. ASSESSMENT: 1. Chronic obstructive pulmonary disease exacerbation. 2. Mild congestive heart failure. 3. End-stage renal disease. 4. Noninsulin-dependent diabetes mellitus. 5. Hypertension. 6. Coronary artery disease. PLAN: 1. Continue respiratory treatments, continue steroids. 2. Stable dialysis. 3. Continue empiric antibiotics. 4. Physical therapy. 5. Discharge planning. Hyun Galarza MD
--- NOTE | 2017-10-10 20:00 | PN ---
DATE: 10/10/2017 PULMONARY PROGRESS NOTE REFERRING PHYSICIAN: Gustavo Garcia MD SUBJECTIVE: Patient is lying in the bed, head at 45 degrees. Night was unremarkable. Did not use CPAP. Had some cough, unable to clear secretion. No nausea, vomiting, diarrhea, leg pain, or leg swelling. Had a dysphagia evaluation done. OBJECTIVE: GENERAL: No acute distress. VITAL SIGNS: Temperature is 98, heart rate 98, respiratory rate is 20, blood pressure 139/83, pulse ox 98% on 3 L nasal cannula. HEENT: Moist mucous membranes. Crowded airway. Mallampati score of 4. NECK: Supple. No JVD. LUNGS: Sattered rhonchi and wheezing. HEART: S1 and S2. ABDOMEN: Soft, nontender, no organomegaly. EXTREMITIES: No edema. NEUROLOGIC: Awake and alert, follows simple command. MEDICATIONS: He is on Mucomyst inhaled every six hours, aspirin 81 mg daily, Benadryl p.r.n. basis, doxycycline 100 mg twice a day, insulin coverage, isosorbide mononitrate 60 mg daily, Levemir 40 units subcu daily, metoprolol tartrate 25 mg twice a day, Mucinex LA 600 mg twice a day, nephro vitamins daily, Plavix 75 mg daily, Renagel 800 mg three times a day, Rocephin 1 g IV daily, Solu-Medrol 40 mg every 12 hours, Xopenex inhaled every 6 hours. LABORATORY DATA: Shows hemoglobin 10.8, hematocrit 34, WBC 5.1, platelet count is 118. Sodium 137, potassium 4.6, chloride 94, bicarbonate 23. BUN 83, creatinine 5.7. Glucose is 294. Calcium is 9, phosphorus is 6.5, magnesium is 2.2. AST 31, ALT 37, alk phos is 68. Albumin is 3.5. IMPRESSION AND PLAN: Chronic obstructive lung disease, interstitial infiltrate, hilar adenopathy, renal failure dialysis dependent, diabetes, severe cardiomyopathy with pulmonary hypertension. Has dysphagia evaluation done, did okay. Pulmonary point of view, continue IV and inhaled bronchodilator. Keep head at 45 degrees. Spoke to the patient in detail. Encouraged him to use Mucomyst, also encouraged him to try BiPAP. Continue supplemental oxygen. Out of bed to chair if possible, physical therapy, aggressive dialysis. There may be component of fluid overloaded. Thank you and we will follow with you. Kathrine Mckeon MD [facility] # [id number]
[2017-10-10] MEDS: Insulin Detemir 100 units/ml Vial (Levemir) SC SCH (22:15)
[2017-10-11] MEDS: Levalbuterol 0.63 MG/3 ML Inhal Soln UD IH SCH ×5 (01:05→14:37)
[2017-10-11] MEDS: Acetylcysteine 20% Inhal Soln (4ml) IH SCH ×3 (04:50→12:59)
[2017-10-11] MEDS: Insulin Reg-LOW-Coverage SC SCH ×3 (08:26→17:25)
[2017-10-11] MEDS: cefTRIAXone 1 gm 1 GM/100 ML BAG IVPB SCH (09:40)
[2017-10-11] MEDS: MethylPREDNISolone 40 mg Vial IVP SCH (09:42)
[2017-10-11] MEDS: Multivitamin Vitamin B Complex (Nephro-Vite) Tab PO SCH (09:45)
[2017-10-11] MEDS: guaiFENesin 600 mg ER Tab PO SCH ×2 (09:49→17:27)
[2017-10-11 15:40] VITALS: BP 123/61; PULSE 78; RESP 20; TEMP 97.7; O2SAT 98
--- NOTE | 2017-10-12 01:44 | PN ---
DATE: 10/11/2017 PULMONARY PROGRESS NOTE REFERRING PHYSICIAN: Dr. Garcia. SUBJECTIVE: Patient is sitting up in a chair. Family is at bedside. Night was unremarkable. Did not use CPAP, complaining about mask, still has cough and shortness of breath, but a little improved. No nausea, no vomiting, no diarrhea. No leg pain or leg swelling. OBJECTIVE: GENERAL: In no acute distress. VITAL SIGNS: Temperature is 98, heart rate 78, respiratory rate is 20, blood pressure 123/61, pulse ox of 98% on room air. HEENT: Moist mucous membrane. Crowded airway. Mallampati score is 4. NECK: Supple. No JVD. LUNGS: Have scattered rhonchi. Few crackles at the bases. HEART: S1 and S2. ABDOMEN: Soft, nontender. No organomegaly. EXTREMITIES: No edema. NEUROLOGIC: Awake and alert, follows simple command. MEDICATIONS: Reviewed and noted. No new changes in medications since yesterday. LABORATORY DATA: Reviewed and noted. Blood sugar was 364. IMPRESSION AND PLAN: Chronic obstructive lung disease; interstitial infiltrate; hilar adenopathy; renal failure, dialysis dependent; diabetes; severe cardiomyopathy with pulmonary retention; may have a component of sleep apnea syndrome. I spoke to the patient's family at bedside. All the questions answered. Encourage bilevel positive airway pressure use at night. Keep head at 45 degrees. Continue intravenous steroids, inhaled bronchodilator, aggressive dialysis, urged the patient to use continuous positive airway pressure. Thank you and we will follow with you. Kathrine Mckeon MD
--- NOTE | 2017-10-12 10:56 | DS ---
HISTORY OF PRESENT ILLNESS: Patient is being transferred from [facility] to [facility]. The patient was admitted with exacerbation of COPD. Continues to have some shortness of breath, cough and rhonchi and rales in the lung figueroa, but has mildly improved. He is tolerating his diet well. He has had physical therapy. He has had dialysis. Patient will be discharged to TCU to continue bronchodilator therapy, steroids, and IV antibiotics. FINAL DISCHARGE DIAGNOSES: Exacerbation of chronic obstructive pulmonary disease, end-stage renal disease, congestive heart failure, and hypertension. Gustavo Garcia MD
== END 2017-10-11 18:09 | DRG 190 ==
LOC: ED 12:16 → ERH 14:05 → 2RSO 17:42 → INTOOBSV 10-08 11:21 → OBSVTOIN 10-08 11:21 → 5RNO 10-08 18:11 → OBSVTOIN 10-10 08:54 → INTOOBSV 10-10 08:54
PROVIDERS: ADMIT Internal Medicine; ATTEND Internal Medicine
DX: J44.1 Chronic obstructive pulmonary disease with (acute) exacerbation (principal); N18.6 End stage renal disease; I13.2 Hypertensive heart and chronic kidney disease with heart failure and with stage 5 chronic kidney disease, or end stage renal disease; N25.81 Secondary hyperparathyroidism of renal origin; I42.9 Cardiomyopathy, unspecified; I50.9 Heart failure, unspecified; I44.7 Left bundle-branch block, unspecified; I27.20 Pulmonary hypertension, unspecified; D63.1 Anemia in chronic kidney disease; E10.22 Type 1 diabetes mellitus with diabetic chronic kidney disease; E83.39 Other disorders of phosphorus metabolism; I25.10 Atherosclerotic heart disease of native coronary artery without angina pectoris; I25.2 Old myocardial infarction; R09.02 Hypoxemia; R13.12 Dysphagia, oropharyngeal phase; Z79.02 Long term (current) use of antithrombotics/antiplatelets; Z87.01 Personal history of pneumonia (recurrent); Z99.2 Dependence on renal dialysis; R40.2412 Glasgow coma scale score 13-15, at arrival to emergency department

== ENCOUNTER 2017-10-11 18:11 | Inpatient (IN) | payer OTHER, BC ==
[2017-10-11] MEDS ORDERED: Levalbuterol 0.63 MG/3 ML Inhal Soln UD IH PRN (18:19)
[2017-10-11] MEDS: Acetylcysteine 20% Inhal Soln (4ml) IH SCH (19:35)
[2017-10-11] MEDS: Levalbuterol 0.63 MG/3 ML Inhal Soln UD IH SCH ×2 (19:35→23:17)
[2017-10-11 20:23] VITALS: BMI 24.1
[2017-10-11] MEDS ORDERED: Pneumococcal 23-Valent Vaccine IM ONE (20:25)
[2017-10-11] MEDS: MethylPREDNISolone 40 mg Vial IVP SCH (22:02)
[2017-10-11] MEDS: Insulin Detemir 100 units/ml Vial (Levemir) SC SCH (22:03)
[2017-10-11] MEDS: Insulin Reg-LOW-Coverage SC SCH (22:04)
[2017-10-12] MEDS: Acetylcysteine 20% Inhal Soln (4ml) IH SCH ×4 (04:00→20:11)
[2017-10-12] MEDS: Levalbuterol 0.63 MG/3 ML Inhal Soln UD IH SCH ×6 (04:00→23:54)
[2017-10-12] MEDS: Insulin Reg-LOW-Coverage SC SCH ×4 (06:48→21:43)
[2017-10-12] MEDS: guaiFENesin 600 mg ER Tab PO SCH ×2 (10:38→17:38)
[2017-10-12] MEDS: Multivitamin Vitamin B Complex (Nephro-Vite) Tab PO SCH (10:38)
[2017-10-12] MEDS: MethylPREDNISolone 40 mg Vial IVP SCH ×2 (10:56→21:39)
--- NOTE | 2017-10-12 11:00 | PN ---
DATE: 10/12/2017 SUBJECTIVE: An 81-year-old white male, admitted to TCU from [facility] with exacerbation of COPD, end-stage renal disease, on hemodialysis; hypertension. The patient is improving with steroids, bronchodilators and antibiotics. The patient will start physical therapy and occupational therapy. He will still be diuresed at dialysis and patient will be slowly ambulated back to full capacity. Gustavo Garcia MD
[2017-10-12] MEDS: Insulin Detemir 100 units/ml Vial (Levemir) SC SCH (21:41)
[2017-10-12] MEDS: Insulin Regular 1 UNITS/0.01 ML ML SC SCH (21:42)
[2017-10-12] MEDS ORDERED: Insulin Regular 1 UNITS/0.01 ML ML IV SCH (22:00)
--- NOTE | 2017-10-12 22:24 | CON ---
DATE: 10/12/2017 PULMONARY CONSULT REFERRING PHYSICIAN: Gustavo Garcia MD REASON FOR CONSULT: Pulmonary infiltrate, chronic lung disease, may have sleep apnea syndrome, cardiomyopathy. HISTORY OF PRESENT ILLNESS: This is an 81-year-old gentleman well known to me from [facility] side of the hospital, has a known history of chronic lung disease, may have a sleep apnea syndrome, according to echo severe lung disease, diabetes, coronary artery disease, oropharyngeal dysphagia in the past, hypertension, admitted to [facility] side of the hospital with cough, shortness of breath, treated with steroids, antibiotics, getting dialysis, presently admitted to TICU for continue care. He is sitting up in a chair, daughter is at bedside. Night was unremarkable. Part of the night uses the CPAP. No hemoptysis, no hematemesis, no hematuria, no diarrhea reported. PAST MEDICAL HISTORY: As per history of present illness. ALLERGIES: NONE KNOWN. SOCIAL HISTORY: Still on and off smokes. Denies any alcohol use. FAMILY HISTORY: No significant cardiopulmonary disease reported. MEDICATIONS: He is on Mucomyst 20% inhale every 6 hours, aspirin 81 mg daily, Benadryl 25 mg every 6 hours p.r.n., doxycycline 100 mg twice a day, insulin coverage, Imdur 60 mg daily, Levemir 40 units subcu at bedtime, metoprolol tartrate 25 mg twice a day, Mucinex LA 600 mg twice a day, Nephro vitamins daily, Plavix 75 mg daily, Renagel 800 mg three times a day, Solu-Medrol 40 mg every 12 hours, and Xopenex inhaled every 6 hours. REVIEW OF SYSTEMS: No headache, no rhinitis. Still has some cough. No nausea, no vomiting. No diarrhea. No leg pain or leg swelling. PHYSICAL EXAMINATION: GENERAL: No acute distress. VITAL SIGNS: Temperature is 98, heart rate 82, respiratory rate is 20, blood pressure 156/77, pulse ox 97% on nasal cannula. HEENT: Small oral cavity. Crowded airway. NECK: Supple. No JVD. LUNGS: Scattered rhonchi. HEART: S1 and S2. ABDOMEN: Soft, nontender, no organomegaly. EXTREMITIES: No edema. NEUROLOGIC: Awake and alert, follows simple commands. LABORATORY DATA: Shows hemoglobin 10.8, hematocrit 34.0, WBC 5.1, platelet is 118. Blood sugar is 380. Sodium 137, potassium 4.6, chloride 94, bicarbonate is 23, BUN 83, creatinine 5.7, calcium 9.0. IMPRESSION AND PLAN: Chronic obstructive lung disease, interstitial infiltrate, hilar adenopathy, renal failure, dialysis dependent, diabetes, severe cardiomyopathy, pulmonary hypertension, may have sleep apnea syndrome. Spoke to patient and daughter at bedside. All the questions answered. Spoke about hilar adenopathy. The patient does not want to be aggressive. No further intervention. Pulmonary point of view, encourage BiPAP use. Keep head at 45 degrees, inhaled bronchodilator, aggressive dialysis, aspiration precaution. We will give regular insulin with each of the steroids. Thank you and we will follow with you. Kathrine Mckeon MD
--- NOTE | 2017-10-12 23:55 | CON ---
DATE: 10/12/2017 REASON FOR CONSULTATION: Shortness of breath, ESRD. HISTORY OF PRESENT ILLNESS: An 81-year-old male known to me from outpatient hemodialysis.. The patient was recently admitted to medical site with shortness of breath. He was thought to have COPD exacerbation. He is now transferred to the Transitional Care Unit. He still has some shortness of breath. He appears very puffy. He denies any chest pain. Denies any palpitations. He denies any nausea, vomiting, or diarrhea. PAST MEDICAL AND SURGICAL HISTORY: NIDDM, hypertension, ESRD, anemia of chronic kidney disease, CAD, CHF, COPD, and secondary hyperparathyroidism. FAMILY HISTORY: Hypertension. SOCIAL HISTORY: No smoking, no alcohol use, no IV drug abuse. ALLERGIES: NO KNOWN DRUG ALLERGIES. MEDICATIONS: Mucomyst 4 mL every 6 hours, aspirin, Benadryl, doxycycline 100 every 12 hours, insulin, Imdur 60, metoprolol 25 b.i.d., guaifenesin, Plavix, Renagel, and Solu-Medrol. REVIEW OF SYSTEMS: The patient still has some dyspnea on exertion. He reports some cough. He denies any chest pain. Denies any palpitations. All other systems are reviewed and unremarkable. PHYSICAL EXAMINATION: GENERAL: Obese elderly male sitting in chair. VITAL SIGNS: Blood pressure 103/47, heart rate 77, respiratory rate 16, temperature 97.7. HEENT: Normocephalic, atraumatic, positive pallor. NECK: Supple, no JVD. LUNGS: Bilateral equal air entry, bilateral equal expansion. CARDIAC: S1 and S2, regular rate and rhythm, no murmur, no rub. ABDOMEN: Obese, distended, soft, nontender, bowel sounds present. EXTREMITIES: No lower extremity edema. INTAKE AND OUTPUT: Not charted. LABORATORY DATA: No new labs. MEDICATIONS: As mentioned above. ASSESSMENT: 1. Chronic obstructive pulmonary disease exacerbation. 2. Decompensated congestive heart failure. 3. End-stage renal disease. 4. Kfr-yyegbld-hpjmzqnxc diabetes mellitus. 5. Hypertension. 6. Coronary artery disease. 7. Anemia of chronic kidney disease. PLAN: 1. Dialysis tomorrow, increase ultrafiltration. 2. Continue respiratory treatments. 3. Physical therapy. 4. Monitor fingersticks. 5. Continue antihypertensives. 6. Continue phosphate binders. Hyun Galarza MD [facility] # [id number]
[2017-10-13] MEDS: Levalbuterol 0.63 MG/3 ML Inhal Soln UD IH SCH ×6 (05:53→23:15)
[2017-10-13] MEDS: Acetylcysteine 20% Inhal Soln (4ml) IH SCH ×5 (05:53→23:15)
[2017-10-13] MEDS: Insulin Reg-LOW-Coverage SC SCH ×4 (06:49→21:57)
[2017-10-13] MEDS: guaiFENesin 600 mg ER Tab PO SCH ×2 (10:29→18:55)
[2017-10-13] MEDS: Multivitamin Vitamin B Complex (Nephro-Vite) Tab PO SCH (10:29)
[2017-10-13] MEDS: Insulin Regular 1 UNITS/0.01 ML ML SC SCH ×2 (10:30→21:57)
[2017-10-13] MEDS: MethylPREDNISolone 40 mg Vial IVP SCH ×2 (10:30→21:59)
--- NOTE | 2017-10-13 11:01 | PN ---
DATE: 10/13/2017 SUBJECTIVE: An 81-year-old white male in TCU. The patient is seen walking with physical therapy today. He has less shortness of breath. He still has some rhonchi, particularly the left base, but he is less short of breath. He is using supplemental oxygen. Vital signs are stable. The patient is for dialysis today. Continue hemodialysis. Continue bronchodilators, steroids and antibiotics. Gustavo Garcia MD
[2017-10-13 14:45] LABS: BASO # 0.01 K/mm3 (0.0-2.0); BASO % 0.1 % (0.0-3.0); GRAN % 94.1 % (50.0-68.0); HEMOGLOBIN 10.8 g/dL (14.0-18.0); LYMPH # 0.7 (1.2-3.4); LYMPH % 3.9 % (22.0-35.0); MEAN CORPUSCULAR HEMOGLOBIN 31.6 pg (25.0-35.0); MEAN CORPUSCULAR HGB CONC 32.2 g/dl (31.0-37.0); MEAN PLATELET VOLUME 10.1 fl (7.0-11.0); MONO # 0.4 (0.1-0.6); MONO % 1.9 % (1.0-6.0); PLATELET COUNT 166 10^3/uL (120.0-450.0); RBC 3.42 10^6/uL (3.5-6.1); RED CELL DISTRIBUTION WIDTH 15.6 % (11.5-14.5); WHITE BLOOD COUNT 18.4 10^3/ul (4.5-11.0)
[2017-10-13 15:17] LABS: BAND 2 % (0-2); LYMPHOCYTE 5 % (22.0-35.0); METAMYELOCYTE 1 %; MONOCYTE 1 % (1.0-6.0); NEUTROPHIL 91 % (50.0-70.0)
[2017-10-13 15:18] LABS: PLATELET ESTIMATE NORMAL (NORMAL)
[2017-10-13 16:44] LABS: ALB/GLOB RATIO 1.5 (1.1-1.8); ALBUMIN 3.7 g/dL (3.0-4.8); CALCIUM 9.6 mg/dL (8.4-10.5)
--- NOTE | 2017-10-13 21:44 | PN ---
DATE: 10/13/2017 PULMONARY PROGRESS NOTE REFERRING PHYSICIAN: Gustavo Garcia MD. SUBJECTIVE: The patient is sitting in a wheelchair, participating in therapy. Night was unremarkable, tolerated CPAP well. No headache, no rhinitis. Cough and shortness of breath are better. No nausea, vomiting, or diarrhea. No leg pain or leg swelling. PHYSICAL EXAMINATION: GENERAL: In no acute distress. VITAL SIGNS: Temperature is 98, heart rate 72, respiratory rate is 16, blood pressure 116/74, pulse ox 99% on nasal cannula. HEENT: Moist mucous membranes. Crowded airway. NECK: Supple. No JVD. LUNGS: Have scattered rhonchi with few crackles. HEART: S1 and S2. ABDOMEN: Soft, nontender. No organomegaly. EXTREMITIES: There is no edema. NEUROLOGIC: Awake, alert, follows simple commands. MEDICATIONS: He is on Mucomyst inhaled every 6 hours, aspirin 81 mg daily, Benadryl 25 mg every 6 hours p.r.n., insulin coverage, Imdur 60 mg daily, Levemir 40 units , metoprolol tartrate 25 mg twice a day, Mucinex LA 600 mg twice a day, multivitamins daily, Plavix 75 mg daily, and Xopenex inhaled every 6 hours. LABORATORY DATA: Shows hemoglobin 10.8, hematocrit 33.5, WBC 18.4, platelet count is 166. Sodium 134, potassium 5.5, chloride 92, bicarbonate 19, BUN 150, creatinine 8.2, calcium is 9.6, phosphorus is 7.6, magnesium 2.3. AST 42, ALT 64, alkaline phosphatase is 64. IMPRESSION AND PLAN: Chronic obstructive lung disease; interstitial infiltrate; hilar adenopathy; renal failure, dialysis dependent; diabetes; severe cardiomyopathy; pulmonary hypertension; may have sleep apnea syndrome; has a hyperkalemia. Spoke to nursing staff. Supposed to get dialysis today. Pulmonary point of view, continue IV and inhaled bronchodilator, aggressive dialysis, decrease p.o. fluid intake, fall precaution. Thank you and we will follow with you. Kathrine Mckeon MD
[2017-10-13] MEDS: Insulin Detemir 100 units/ml Vial (Levemir) SC SCH (21:58)
[2017-10-14] MEDS: Levalbuterol 0.63 MG/3 ML Inhal Soln UD IH SCH ×5 (03:05→21:15)
[2017-10-14] MEDS: Acetylcysteine 20% Inhal Soln (4ml) IH SCH ×4 (03:06→21:15)
[2017-10-14] MEDS: Insulin Reg-LOW-Coverage SC SCH ×4 (06:38→22:31)
[2017-10-14] MEDS: guaiFENesin 600 mg ER Tab PO SCH ×2 (11:21→18:09)
[2017-10-14] MEDS: Multivitamin Vitamin B Complex (Nephro-Vite) Tab PO SCH (11:22)
--- NOTE | 2017-10-14 11:26 | PN ---
DATE: 10/14/2017 SUBJECTIVE: An 81-year-old male admitted to the hospital with exacerbation of COPD, end-stage renal disease on dialysis. Patient did physical therapy yesterday. His lungs are slowly clearing. He does have an elevated white count most likely from the methylprednisolone. It will be changed to p.o. prednisone 10 mg. Continue physical therapy, occupational therapy. Continue bronchodilator therapy. antibiotics. Chest shows decreased rhonchi. Otherwise patient is doing physical therapy and he is awake, alert and oriented x3. Gustavo Garcia MD
--- NOTE | 2017-10-14 14:06 | PN ---
DATE: 10/14/2017 SUBJECTIVE: The patient is currently seen sitting up in a chair in the TCU. He appears to be comfortable. No shortness of breath. He is complaining of some bleeding from an abrasion of the dorsum of his left hand. He had an uneventful dialysis yesterday. MEDICATIONS: Medication list reviewed. The patient is currently on acetylcysteine inhalation therapy, aspirin, Benadryl, insulin, Imdur, Lopressor, Mucinex, Nephro-Jarret, Plavix, prednisone, Renagel, Xopenex inhalation therapy. OBJECTIVE: VITAL SIGNS: Blood pressure 132/70, temperature 98.3, respiratory rate 18 with a pulse of 74. Pulse ox is 100%. HEENT: Show him to be normocephalic, atraumatic. Conjunctivae are pink. Sclerae are nonicteric. NECK: Supple. No neck vein distention. CHEST: Clear to auscultation and percussion with scattered rhonchi. No rales or wheezing. CARDIOVASCULAR: Shows a regular rate and rhythm without audible murmurs, rubs, or gallops. ABDOMEN: Soft. Bowel sounds normal. No rebound or guarding. No masses. EXTREMITIES: Show no lower extremity edema. He has an NICOLA wrap around his AV fistula. Positive bruit auscultated. He has an abrasion of the dorsum of the left hand with some minor bleeding contained with a dressing. LABORATORY DATA AND IMAGING: CBC from yesterday white blood cell count 18.4, hemoglobin 10.8 with a platelet count of 166,000. Chemistry showed a potassium of 5.5. BUN was elevated at 150 with a creatinine of 8.2. Glucose is 219. Calcium 9.6. Phosphorus was 7.6. Magnesium level was 2.3. ASSESSMENT: 1. Chronic obstructive pulmonary disease with exacerbation. The patient is currently on inhalation therapy and steroids. Elevated BUN noted. We will try and decrease steroids as quickly as possible. 2. History of decompensated congestive heart failure secondary to excessive fluid intake and the patient's inability to adhere to fluid restriction. During hospitalization in the TCU, monitored fluid intake carefully. Try and bring the patient down to dry weight. 3. History of end-stage renal disease. We will continue three times a week dialysis. If necessary, a fourth treatment will be added. 4. History of dll-nflromn-nkqutevdg diabetes mellitus. Continue present medication for diabetes. 5. History of hypertension, controlled on present medical therapy. 6. History of atherosclerotic heart disease, currently stable. 7. History of anemia of chronic kidney disease. Hemoglobin is presently acceptable at 10.8. PLAN: 1. Continue three times a week dialysis. He is a Friday, Friday, and Friday patient. We will increase ultrafiltration as necessary to bring him down to his estimated dry weight. 2. Continue respiratory therapy. 3. Continue to monitor BUN. I am not comfortable with BUN in the 150 range for a little person. Perhaps, it is probably secondary to steroids. 4. Continue physical therapy in the TCU. 5. Continue phosphorus binders p.r.n., increase Renagel to 1600 mg a day. 6. Continue renal diet. Alton Bailey MD
[2017-10-14] MEDS: Insulin Detemir 100 units/ml Vial (Levemir) SC SCH (22:31)
[2017-10-15] MEDS: Levalbuterol 0.63 MG/3 ML Inhal Soln UD IH SCH ×7 (00:17→23:57)
--- NOTE | 2017-10-15 04:02 | PN ---
DATE: 10/14/2017 REFERRING PHYSICIAN: Gustavo Garcia MD SUBJECTIVE: He is out of bed to chair. Family is at bedside. Night was unremarkable. Able to tolerate BiPAP well. No headache. No rhinitis. Still has some cough, but improved. No nausea. No vomiting. No diarrhea. No significant leg swelling. OBJECTIVE: GENERAL: No acute distress. VITAL SIGNS: Temperature is 98, heart rate 79, respiratory rate is 20, blood pressure 132/63, pulse ox 92% on room air. HEENT: Moist mucous membrane. Crowded airway. NECK: Supple. No JVD. LUNGS: Has a few crackles and scattered rhonchi. HEART: S1 and S2. ABDOMEN: Soft and nontender. No organomegaly. EXTREMITIES: Does have edema. NEUROLOGICAL: Awake and alert. Follows simple command. MEDICATIONS: Mucomyst 20% inhaled every 6 hours, aspirin 81 mg daily, Benadryl 25 mg every 6 hours p.r.n., insulin coverage, Imdur 60 mg daily, Levemir 40 units subcu at bedtime, metoprolol tartrate 25 mg twice a day, Mucinex LA 600 mg twice a day, nephro vitamins daily, Plavix 75 mg daily, prednisone 10 mg daily, Renagel mg three times a day, Xopenex inhaled every 6 hours. LABORATORY DATA: Reviewed and noted. Blood sugar is 278. IMPRESSION AND PLAN: Chronic obstructive lung disease, interstitial infiltrate, hilar adenopathy, renal failure, dialysis dependent, diabetes, severe cardiomyopathy, pulmonary hypertension, may have sleep apnea syndrome. I spoke to the patient's family at bedside. All the questions answered. We will continue to encourage bilevel positive airway pressure use at night and bronchodilator. Fall precaution. Aggressive dialysis. Continue therapy. We will follow with you. Kathrine Mckeon MD
[2017-10-15] MEDS: Acetylcysteine 20% Inhal Soln (4ml) IH SCH ×4 (04:36→20:03)
[2017-10-15] MEDS: Insulin Reg-LOW-Coverage SC SCH ×4 (06:31→22:35)
[2017-10-15] MEDS: guaiFENesin 600 mg ER Tab PO SCH ×2 (09:20→18:47)
[2017-10-15] MEDS: Multivitamin Vitamin B Complex (Nephro-Vite) Tab PO SCH (09:20)
[2017-10-15 15:29] LABS: BASO # 0.03 K/mm3 (0.0-2.0); BASO % 0.2 % (0.0-3.0); EOS % 0.1 % (1.5-5.0); GRAN # 16.76 (1.4-6.5); GRAN % 89.9 % (50.0-68.0); HEMOGLOBIN 10.4 g/dL (14.0-18.0); LYMPH # 1.5 (1.2-3.4); LYMPH % 7.9 % (22.0-35.0); MEAN CELL VOLUME 98.5 fl (80.0-105.0); MEAN CORPUSCULAR HEMOGLOBIN 31.7 pg (25.0-35.0); MEAN CORPUSCULAR HGB CONC 32.2 g/dl (31.0-37.0); MEAN PLATELET VOLUME 10.2 fl (7.0-11.0); MONO # 0.4 (0.1-0.6); MONO % 1.9 % (1.0-6.0); RBC 3.28 10^6/uL (3.5-6.1); RED CELL DISTRIBUTION WIDTH 15.7 % (11.5-14.5); WHITE BLOOD COUNT 18.6 10^3/ul (4.5-11.0)
--- NOTE | 2017-10-15 15:35 | PN ---
DATE: 10/15/2017 SUBJECTIVE: An 81-year-old white male, in TCU, doing physical therapy and occupational therapy. End-stage renal disease, on hemodialysis. Exacerbation of COPD. Getting steroids, IV antibiotics, bronchodilators. The patient is improving rapidly. He is still weak. He is doing ambulation with a walker. He is going to dialysis 3 times a week. He is finishing his course of medications for his exacerbation of COPD. He still has some rales and still has some rhonchi, particularly at the left base, but improving overall. Gustavo Garcia MD
[2017-10-15 16:03] LABS: ALB/GLOB RATIO 1.5 (1.1-1.8); ALBUMIN 3.5 g/dL (3.0-4.8); CALCIUM 8.9 mg/dL (8.4-10.5)
--- NOTE | 2017-10-15 18:00 | PN ---
DATE: 10/15/2017 PULMONARY PROGRESS NOTE REFERRING PHYSICIAN: Gustavo Garcia MD SUBJECTIVE: Patient is sitting up in the chair. is at bedside. Having lunch. Night was unremarkable. Tolerated CPAP for three hours. Still having mild cough, but feels better. No nausea. No vomiting. No diarrhea. No leg pain or leg swelling. OBJECTIVE: GENERAL: In no acute distress. VITAL SIGNS: Temperature is 98, heart rate is 78, respiratory rate is 20, blood pressure is 75/44, pulse ox 95% on 3 L nasal cannula. HEENT: Moist mucous membranes. Crowded airway. NECK: Supple. No JVD. LUNGS: Fair airflow with rhonchi. HEART: S1 and S2. ABDOMEN: Soft, nontender. No organomegaly. EXTREMITIES: No edema. NEUROLOGIC: Awake and alert. Follows simple command. MEDICATIONS: He is on Mucomyst 20% inhaled every 6 hours, aspirin 81 mg daily, Benadryl 25 mg every 6 hours p.r.n. for itching, Imdur 60 mg daily, Levemir 40 units subcu at bedtime, metoprolol tartrate 25 mg twice a day, Mucinex inhaled twice a day, Nephro-Jarret daily, Plavix 75 mg daily, prednisone 10 mg daily, Renagel three times a day, Xopenex inhaled every 6 hours p.r.n. LABORATORY DATA: Shows blood sugar is 145. IMPRESSION AND PLAN: Chronic obstructive lung disease, interstitial infiltrates, hilar adenopathy, renal failure, dialysis dependent, diabetes, severe cardiomyopathy, pulmonary hypertension, may have sleep apnea syndrome. Spoke to at bedside. All their questions answered. Encouraged BiPAP use, at least 4 hours. Continue p.o. and inhaled bronchodilator. Fall precautions. We will add gastric prophylaxis. Thank you and we will follow with you. Kathrine Mckeon MD
--- NOTE | 2017-10-15 19:15 | PN ---
DATE: 10/15/2017 SUBJECTIVE: The patient is seen sitting in the chair. He is awake. He is alert. He complains of cough. PHYSICAL EXAMINATION: GENERAL: Elderly male sitting in chair. VITAL SIGNS: Blood pressure 92/57, heart rate 77, respiratory rate 18, temperature 98.5. HEENT: Normocephalic, atraumatic, positive pallor. NECK: Supple, no JVD. LUNGS: Bilateral rhonchi, bilateral crackles, prolonged expiration. CARDIAC: S1 and S2, regular rate and rhythm, no murmur, no rub. ABDOMEN: Obese, distended, soft, nontender, bowel sounds present. EXTREMITIES: 1+ pitting edema of the lower extremities. INTAKE AND OUTPUT: Not charted. LABORATORY DATA: WBC 18.6, hemoglobin 10, hematocrit 32, platelets 177. Sodium 134, potassium 5.5, chloride 91, CO2 24, BUN 125, creatinine 6.5, glucose 212. ASSESSMENT: 1. Decompensated congestive heart failure. 2. Chronic obstructive pulmonary disease exacerbation. 3. Noninsulin-dependent diabetes mellitus. 4. Hypertension. 5. Coronary artery disease. 6. End-stage renal disease. PLAN: 1. Increase ultrafiltration on dialysis. 2. Probably ultrafiltration tomorrow. 3. Continue respiratory treatments. 4. Continue physical therapy. Hyun Galarza MD
[2017-10-15] MEDS: Insulin Detemir 100 units/ml Vial (Levemir) SC SCH (21:39)
[2017-10-16] MEDS: Acetylcysteine 20% Inhal Soln (4ml) IH SCH ×4 (03:07→20:11)
[2017-10-16] MEDS: Levalbuterol 0.63 MG/3 ML Inhal Soln UD IH SCH ×6 (03:08→23:14)
[2017-10-16] MEDS ORDERED: Dextrose 50% SYRINGE Inj (50 ml) ONE (05:05)
[2017-10-16] MEDS: Insulin Reg-LOW-Coverage SC SCH ×4 (08:25→21:40)
--- NOTE | 2017-10-16 09:50 | PN ---
DATE: 10/16/2017 SUBJECTIVE: An 81-year-old white male in TCU, doing physical therapy and occupational therapy. End-stage renal disease, on hemodialysis; COPD, on steroids, bronchodilators and antibiotics. The patient did have some drop in his blood sugar last night. He was treated with some juice and it returned to normal. The patient also is mildly hypotensive today. We will readjust his medications. The patient is to continue his medications. He is scheduled for discharge on Friday. Today is . Right now, the vital signs are 98.5, pulse of 79, blood pressure 146/62. Chest continues to reveal chronic rhonchi in particularly the left base. The patient is awake and alert and oriented x3. He is doing physical therapy today. We will repeat his labs and make some adjustments to the blood pressure and blood sugar medications. Gustavo Garcia MD
[2017-10-16] MEDS: Multivitamin Vitamin B Complex (Nephro-Vite) Tab PO SCH (09:57)
[2017-10-16] MEDS: guaiFENesin 600 mg ER Tab PO SCH ×2 (09:57→17:42)
--- NOTE | 2017-10-16 17:51 | PN ---
DATE: 10/16/2017 SUBJECTIVE: The patient is seen sitting in chair. He is awake. He is alert. He is coughing. He is having dyspnea on exertion. PHYSICAL EXAMINATION: GENERAL: Elderly male sitting in chair. VITAL SIGNS: Blood pressure 90/50, heart rate 61, respiratory rate 18-20, temperature 98.1. HEENT: Normocephalic, atraumatic, positive pallor. NECK: Supple, no JVD. LUNGS: Bilateral rhonchi, basilar rales, coarse crackles. CARDIAC: S1 and S2, regular rate and rhythm, no murmur, no rub. ABDOMEN: Obese, distended, soft, nontender, bowel sounds present. EXTREMITIES: 1+ pitting edema. INTAKE AND OUTPUT: Not charted. LABORATORY DATA: No new labs available. MEDICATIONS: List reviewed. ASSESSMENT: 1. Chronic obstructive pulmonary disease exacerbation. 2. Decompensated congestive heart failure. 3. Noninsulin-dependent diabetes mellitus. 4. Hypertension. 5. End-stage renal disease. 6. Anemia. PLAN: 1. Ultrafiltration today, removed 2 kg. 2. Physical therapy. 3. Dialysis tomorrow. 4. Follow a renal diet. Hyun Galarza MD
[2017-10-16] MEDS: Insulin Detemir 100 units/ml Vial (Levemir) SC SCH (21:42)
--- NOTE | 2017-10-17 02:40 | PN ---
DATE: 10/16/2017 PULMONARY PROGRESS NOTE REFERRING PHYSICIAN: Gustavo Garcia MD. SUBJECTIVE: Patient is sitting up in a chair, just come back from dialysis, feels better, could not use CPAP last night. Still has some cough. No nausea, vomiting, diarrhea. No leg pain or leg swelling. OBJECTIVE: GENERAL: In no acute distress. VITAL SIGNS: Temperature is 98, heart rate 76, respiratory rate is 20, blood pressure 137/69, pulse of 98%, 2 liters nasal cannula. HEENT: Moist mucous membrane. Crowded airway. NECK: Supple. No JVD. LUNGS: Has a scattered rhonchi, few crackles at the bases. HEART: S1 and S2. ABDOMEN: Soft, nontender, no organomegaly. EXTREMITIES: Does have some edema. NEUROLOGIC: Awake, alert, follows simple commands. MEDICATIONS: He is on Mucomyst inhaled every 6 hours, aspirin 81 mg daily, Benadryl p.r.n. basis, insulin coverage, Imdur 60 mg daily, Levemir 35 units at bedtime, metoprolol tartrate 25 mg twice a day, Mucinex LA 600 mg twice a day, Nephro vitamins daily, Pepcid 20 mg at bedtime, Plavix 75 mg daily, prednisone 10 mg daily, Renagel mg three times a day, Xopenex inhaled every 6 hours. Blood sugar this morning is 253. IMPRESSION AND PLAN: Chronic obstructive lung disease, interstitial infiltrate, hilar adenopathy, renal failure, dialysis dependent diabetes, severe cardiomyopathy, pulmonary hypertension, may have sleep apnea syndrome. Pulmonary point of view, doing okay. Spoke to at bedside. All the questions answered. Encourage bilevel positive airway pressure use at night and p.o. and inhaled bronchodilator. Continue be aggressive with the dialysis. Patient is agitated about p.o. fluid intake with renal failure. Thank you and we will follow with you. Kathrine Mckeon MD
[2017-10-17] MEDS: Acetylcysteine 20% Inhal Soln (4ml) IH SCH ×5 (04:19→20:06)
[2017-10-17] MEDS: Levalbuterol 0.63 MG/3 ML Inhal Soln UD IH SCH ×5 (04:19→20:07)
[2017-10-17] MEDS: Insulin Reg-LOW-Coverage SC SCH ×4 (06:39→22:09)
[2017-10-17 07:31] LABS: BASO # 0.04 K/mm3 (0.0-2.0); BASO % 0.3 % (0.0-3.0); EOS # 0.3 (0.0-0.7); EOS % 2.4 % (1.5-5.0); GRAN # 10.52 (1.4-6.5); GRAN % 78.6 % (50.0-68.0); HEMOGLOBIN 10.6 g/dL (14.0-18.0); LYMPH # 0.9 (1.2-3.4); LYMPH % 6.9 % (22.0-35.0); MEAN CORPUSCULAR HEMOGLOBIN 31.6 pg (25.0-35.0); MEAN CORPUSCULAR HGB CONC 31.6 g/dl (31.0-37.0); MEAN PLATELET VOLUME 10.1 fl (7.0-11.0); MONO # 1.6 (0.1-0.6); MONO % 11.8 % (1.0-6.0); RBC 3.35 10^6/uL (3.5-6.1); WHITE BLOOD COUNT 13.4 10^3/ul (4.5-11.0)
[2017-10-17] MEDS: guaiFENesin 600 mg ER Tab PO SCH ×2 (09:34→18:14)
[2017-10-17] MEDS: Multivitamin Vitamin B Complex (Nephro-Vite) Tab PO SCH (09:34)
--- NOTE | 2017-10-17 15:49 | PN ---
DATE: 10/17/2017 SUBJECTIVE: Patient is 81 years old, seen and examined. As per nurse, he had intermittent rectal bleeding. There is intermittent constipation too. Patient is hard of hearing. Does not offer any complaint except feeling weak. OBJECTIVE: VITAL SIGNS: He is afebrile, pulse 79, respirations 18, blood pressure 93/56. LUNGS: Bilateral fair airflow with soft crackle. HEART: S1, S2 audible. ABDOMEN: Soft, obese, and nontender. No rebound. No guarding. NEUROLOGIC: He is awake and alert, hard of hearing, generalized weakness, and difficulty walking. LABORATORY DATA: WBC 13.4, hemoglobin 10.6, hematocrit 33.5, and platelets 156. Chemistry: Blood sugar is 223. ASSESSMENT: 1. Generalized weakness. 2. Deconditioning and difficulty walking. 3. End-stage renal disease, on hemodialysis. 4. History of chronic obstructive pulmonary disease. 5. Coronary artery disease. 6. History of open heart surgery. 7. Constipation. 8. History of congestive heart failure. 9. Non-insulin dependent diabetes. 10. Chronic anemia. PLAN: The patient is currently on aspirin. His blood sugar is being monitored. He is on isosorbide and beta-enrique. He is on Plavix. We will continue on Pepcid. He is also on tapering dose of steroids. We will start him on MiraLax. Patient will go for dialysis today afternoon and discharge plan over the weekend. Raghav Whitehead MD
[2017-10-17] MEDS: POLYETHYLENE GLYCOL 3350 17 GM/Dose PACKET PO SCH (18:14)
--- NOTE | 2017-10-17 19:18 | PN ---
DATE: 10/17/2017 SUBJECTIVE: The patient is seen sitting in a chair. He is awake. He is alert. He feels a little bit better today. He had ultrafiltration done yesterday. PHYSICAL EXAMINATION GENERAL: Elderly male sitting in a chair. VITAL SIGNS: Blood pressure 99/54, heart rate 59, respiratory rate 18, temperature 97.8. HEENT: Normocephalic, atraumatic. NECK: Supple, no JVD. LUNGS: Bilateral equal air entry, bilateral equal expansion, no rales. CARDIAC: S1 and S2, regular rate and rhythm, no murmur, no rub. ABDOMEN: Obese, distended, soft, nontender, bowel sounds present. EXTREMITIES: No lower extremity edema. INTAKE AND OUTPUT: Not charted. LABORATORY DATA: WBC , hemoglobin 10.6, hematocrit 34, platelets 156. No chemistry. MEDICATIONS: List reviewed. ASSESSMENT: 1. Decompensated congestive heart failure. 2. Chronic obstructive pulmonary disease exacerbation. 3. Non-insulin dependant diabetes mellitus. 4. Hypertension. 5. End-stage renal disease. 6. Anemia of chronic kidney disease. 7. Secondary hyperparathyroidism. PLAN: 1. Dialysis today. 2. Continue respiratory treatments. 3. Continue physical therapy. 4. Continue insulin and fingerstick monitoring. Hyun Galarza MD
[2017-10-17] MEDS: Insulin Detemir 100 units/ml Vial (Levemir) SC SCH (22:09)
--- NOTE | 2017-10-17 23:47 | PN ---
DATE: 10/17/2017 PULMONARY PROGRESS NOTE REFERRING PHYSICIAN: Gustavo Garcia MD. SUBJECTIVE: Patient is lying on the dialysis chair. Night was unremarkable, tolerated CPAP for 3 to 4 hours. Mild cough. Feels better. No chest pain. No nausea. No vomiting. No diarrhea. No significant leg swelling. OBJECTIVE: GENERAL: In no acute distress. VITAL SIGNS: Temperature is 98, heart rate is 79, respiratory rate is 18, blood pressure 99/54, pulse ox 91% on room air. HEENT: Moist mucous membrane. Crowded airway. NECK: Supple. No JVD. LUNGS: Have a few scattered rhonchi. HEART: S1 and S2. ABDOMEN: Soft, nontender. No organomegaly. EXTREMITIES: Trace edema. NEUROLOGIC: Awake, alert and follows simple command. MEDICATIONS: Mucomyst inhaled every 6 hours, aspirin 81 mg daily, Benadryl every 6 hours p.r.n., Imdur 60 mg daily, Levemir 30 units subcu at bedtime, metoprolol tartrate 25 mg twice day, MiraLax 17 g daily, Mucinex 600 mg twice a day, Nephro vitamins daily, Pepcid 20 mg at bedtime, Plavix 75 mg daily, prednisone 10 mg daily, Renagel mg three times a day, Xopenex inhaled every 6 hours p.r.n. LABORATORY DATA: Shows hemoglobin 10.6, hematocrit 33.5, WBC 13.4, platelet is 156. Blood sugar is 134. IMPRESSION AND PLAN: Chronic obstructive lung disease, interstitial infiltrate, hilar adenopathy, renal failure, dialysis dependent diabetes, severe cardiomyopathy, pulmonary hypertension, may have sleep apnea syndrome. Continue to encourage continuous positive airway pressure use. Taper off prednisone slowly. Continue inhaled bronchodilator, aggressive with dialysis. Patient encouraged to do the fluid balance, try to cut down p.o. fluid intake. Fall precaution. Thank you and we will follow with you. Kathrine Mckeon MD
[2017-10-18] MEDS: Levalbuterol 0.63 MG/3 ML Inhal Soln UD IH SCH ×6 (00:15→21:15)
[2017-10-18] MEDS: Acetylcysteine 20% Inhal Soln (4ml) IH SCH ×4 (03:54→21:15)
[2017-10-18] MEDS: Insulin Reg-LOW-Coverage SC SCH ×4 (06:36→21:53)
[2017-10-18] MEDS: Multivitamin Vitamin B Complex (Nephro-Vite) Tab PO SCH (09:52)
[2017-10-18] MEDS: POLYETHYLENE GLYCOL 3350 17 GM/Dose PACKET PO SCH (09:52)
[2017-10-18] MEDS: guaiFENesin 600 mg ER Tab PO SCH ×2 (09:52→17:31)
--- NOTE | 2017-10-18 11:45 | PN ---
DATE: 10/18/2017 SUBJECTIVE: The patient is currently seen in the TCU, sitting up in a chair, reading the newspaper. He appears to be in no distress. He states he did have an extra dialysis treatment for fluid removal. The patient knows he needs to be cautious with oral fluid intake. MEDICATIONS: Medication list reviewed. The patient is on acetylcysteine inhalation therapy, aspirin, Benadryl, insulin, Imdur, Levemir, Lopressor, MiraLax, Mucinex, Nephro-Jarret, Pepcid, Plavix, p.o. prednisone, Renagel, Xopenex. OBJECTIVE: VITAL SIGNS: Blood pressure 127/59, temperature is 97.8. Respiratory rate is 18. Heart rate is 80 with a pulse ox of 91%. HEENT: Shows him to be normocephalic, atraumatic. Conjunctivae are pink. Sclerae are nonicteric. NECK: Supple. No neck vein distention. CHEST: Scattered rhonchi. No wheezing. No rales. CARDIOVASCULAR: Shows a regular rate and rhythm without audible murmurs, rubs or gallops. ABDOMEN: Soft. Bowel sounds normal. No rebound. No guarding. No masses. EXTREMITIES: Show trace to 1+ lower extremity edema. No cyanosis or clubbing. LABORATORY DATA AND IMAGING STUDIES: Last CBC showed a white blood cell count of 13.4 with a hemoglobin of 10.6, platelet count of 156,000. Chemistries were not done with yesterday's dialysis. Last calcium was 8.9 with a phosphorus of 7.3. ASSESSMENT: 1. Chronic obstructive pulmonary disease with exacerbation. The patient is stabilized. He remains on inhalation therapy and oral steroid therapy. He will likely be discharged home on tapering doses of steroid therapy and continue inhalation therapy with a nebulizer. 2. History of decompensated congestive heart failure secondary to excessive fluid intake. Once again discussed with the patient when he goes home, he needs to be mindful of fluid restriction, especially during the hot summer months. The patient has had unacceptable weight gains coming into dialysis. 3. History of end-stage renal disease. Continue Friday, Friday and Friday dialysis. Next dialysis will likely be in the outpatient unit on Friday. 4. History of [id number] diabetes mellitus. Continue present medication for diabetes. He remains on insulin. 5. History of hypertension, controlled on present medical therapy. 6. History of atherosclerotic heart disease, stable. 7. History of anemia secondary to chronic kidney disease. Hemoglobin has been holding stable at 10.6. PLAN: 1. Continue three times a week dialysis. Next dialysis likely will be in the outpatient unit as the patient will likely be discharged tomorrow. 2. Once again stressed the patient the importance of fluid restriction given the fact that it is difficult to remove fluid from him on dialysis secondary to hypotension. 3. Continue physical therapy over the next several days in the TCU. 4. Continue higher dose of Renagel in light of his elevated phosphorus level. 5. Stress compliance with a renal diet upon discharge. Alton Bailey MD
--- NOTE | 2017-10-18 16:55 | PN ---
DATE: 10/18/2017 SUBJECTIVE: The patient is 81 years old, seen and examined, lying in bed, seems to be comfortable, has cough, congestion, complained of some neck pain, had soft collar placed that helped somewhat. OBJECTIVE: VITAL SIGNS: He is afebrile, pulse 80, respirations 20, blood pressure 127/59. LUNGS: Bilateral fair airflow, soft crackle in the upper lung region, improved by coughing. HEART: S1 and S2 audible. ABDOMEN: Soft, nontender. No rebound. No guarding. NEUROLOGIC: The patient is awake, alert, oriented, and communicative. LABORATORY DATA: Blood sugar is 260. ASSESSMENT: 1. bronchitis. 2. Generalized weakness and difficulty walking. 3. End-stage renal disease, on hemodialysis. 4. History of chronic obstructive pulmonary disease. 5. History of open heart surgery. 6. Non-insulin dependant diabetes. 7. Chronic anemia. PLAN: The patient need to encourage with phlegm. I will request for incentive spirometry and I will also request for chest PT and the patient will continue physical therapy. Blood sugar is being monitored. We will reevaluate the patient in a.m. Raghav Whitehead MD
[2017-10-18] MEDS: Insulin Detemir 100 units/ml Vial (Levemir) SC SCH (21:50)
[2017-10-19] MEDS: Levalbuterol 0.63 MG/3 ML Inhal Soln UD IH SCH ×6 (00:15→20:00)
[2017-10-19] MEDS: Acetylcysteine 20% Inhal Soln (4ml) IH SCH ×4 (03:00→20:00)
[2017-10-19] MEDS: Insulin Reg-LOW-Coverage SC SCH ×4 (06:43→22:01)
--- NOTE | 2017-10-19 09:50 | PN ---
DATE: 10/19/2017 SUBJECTIVE: The patient is currently seen lying comfortable in bed. He anticipates being discharged home later today. MEDICATIONS: Medication list reviewed. The patient is on acetylcysteine, aspirin, Benadryl, insulin, Imdur, Lopressor, MiraLax, Mucinex, Nephro-Jarret, Pepcid, Plavix, prednisone, Renagel, and Xopenex. OBJECTIVE: VITAL SIGNS: Blood pressure is 120/67. Temperature is 97.8. Pulse is 80 with a respiratory rate of 18. HEENT: Exam, normocephalic, atraumatic. Conjunctivae are pink. Sclerae nonicteric. NECK: Supple. No neck vein distention. CHEST: Clear to auscultation and percussion. No rales, no rhonchi or wheezing audible today. CARDIOVASCULAR: Shows a regular rate and rhythm without murmurs, rubs or gallops. ABDOMEN: Soft. Bowel sounds normal. No rebound, guarding or masses. EXTREMITIES: Show trace lower extremity edema with no cyanosis or clubbing. LABORATORY DATA AND IMAGING DATA: Last set of labs go back to 10/17. White blood cell count was 13.4 with a hemoglobin of 10.6. Chemistries were acceptable. Glucose control is acceptable. The last phosphorus level was done on 10/15 of 7.3 and the patient remains on binder therapy. ASSESSMENT: 1. Chronic obstructive pulmonary disease with exacerbation. The patient appears to have stabilized. He continues on oral inhalation therapy and oral steroid therapy at tapering doses. I see no reason that the patient cannot be discharged home on present medication. 2. History of decompensated congestive heart failure secondary to excessive fluid intake. Stressed to the patient the importance to restrict p.o. fluid intake. We will try and limit the need for extra dialysis treatments. The patient's next dialysis will likely be in the outpatient unit tomorrow. 3. History of end-stage renal disease. Continue three times a week dialysis. 4. History of [id number] diabetes mellitus. The patient remains presently on insulin. We will continue current regimen upon discharge. 5. History of hypertension, controlled on present medical therapy. 6. History of atherosclerotic heart disease, stable. 7. History of anemia secondary to chronic kidney disease. Last hemoglobin was acceptable at 10.6. PLAN: 1. From a renal standpoint, the patient may be discharged home. 2. Discussed with the patient the need to be compliant with fluid restriction, especially during the hot summer months to avoid CHF exacerbations of fluid overload and necessity for hospitalization with extra dialysis treatments. 3. Continue present inhalational therapy and continue to taper steroids in the outpatient setting. 4. Continue renal diet and Renagel. Alton Bailey MD MTDD
[2017-10-19] MEDS: Multivitamin Vitamin B Complex (Nephro-Vite) Tab PO SCH (10:06)
[2017-10-19] MEDS: guaiFENesin 600 mg ER Tab PO SCH ×2 (10:06→17:34)
[2017-10-19] MEDS: POLYETHYLENE GLYCOL 3350 17 GM/Dose PACKET PO SCH (10:06)
--- NOTE | 2017-10-19 17:13 | PN ---
DATE: 10/19/2017 SUBJECTIVE: The patient is 81 years old, seen and examined, anxious to go home, but he has cough. He has rattling secretion in his throat and also on auscultation, he has crackle in the upper lung region, probably transmitted sounds from his mucus in the upper respiratory tract. Otherwise, he is awake, alert, oriented, able to communicate, anxious to go home. PHYSICAL EXAMINATION: VITAL SIGNS: He is afebrile, pulse 80, respirations 20, blood pressure 128/67. LUNGS: Bilateral soft crackle in the upper lung region. HEART: S1 and S2 audible. ABDOMEN: Soft. Nontender. No rebound. No guarding. NEUROLOGICAL: He is awake, alert, oriented, able to communicate. SKIN: Looks pale. LABORATORY EXAM: Blood sugar is 275. ASSESSMENT: 1. Chronic obstructive pulmonary disease with bronchitis. 2. End-stage renal disease, on hemodialysis. 3. Generalized weakness and difficulty walking and deconditioning. 4. History of coronary artery disease, status post open heart surgery in the remote past. 5. [id number] diabetes. PLAN: We will continue the patient on incentive spirometry and chest PT. He is currently on nebulizer treatment, we will continue that. Encourage ambulation. Discharge plans in the morning. Raghav Whitehead MD
--- NOTE | 2017-10-19 23:42 | PN ---
DATE: 10/19/2017 PULMONARY PROGRESS NOTE REFERRING PHYSICIAN: Gustavo Garcia MD. SUBJECTIVE: Patient is sitting up in the chair. Today's events noted. is at bedside. Patient was supposed to go home today, but he is fluid overloaded and need dialysis. Apparently, dialysis center is closed today. He is scheduled for tomorrow morning anyway, so he was kept in TCU today. Has cough, shortness of breath. No nausea, no vomiting, no diarrhea. Has trace leg swelling. OBJECTIVE: GENERAL: Mild distress secondary to shortness of breath. VITAL SIGNS: Temperature is 98, heart rate is 80, respiratory rate is 30, blood pressure 120/55. HEENT: Moist mucous membrane. Crowded airway. NECK: Supple. No JVD. LUNGS: Has one-third of crackle. HEART: S1 and S2. ABDOMEN: Soft, nontender. No organomegaly. EXTREMITIES: There is mild edema. NEUROLOGIC: Awake, alert, and follows simple command. MEDICATIONS: He is on Mucomyst inhaled every 6 hours, aspirin 81 mg, Benadryl 25 mg every 6 hour p.r.n., insulin coverage, Imdur 60 mg daily, Levemir 30 units subcu at bedtime, metoprolol tartrate 25 mg twice a day, MiraLax 17 g daily, Mucinex LA 600 mg twice a day, Nephro vitamins daily, Pepcid 20 mg daily, Plavix 75 mg daily, prednisone 5 mg daily, Renagel three times a day, Xopenex inhaled every 6 hours, Xopenex every 4 hours round the clock. LABORATORY DATA: Reviewed, blood sugar this morning is 290. IMPRESSION AND PLAN: Chronic obstructive lung disease; interstitial infiltrate; hilar adenopathy; renal failure, dialysis dependent; diabetes; severe cardiomyopathy; pulmonary hypertension; may have sleep apnea syndrome. I spoke to the nursing staff, also spoke to the patient's and the patient in detail. Again, talked about euvolemic and his renal failure, cardiomyopathy, and benefit of euvolemic. Patient expressed understanding. Does not make much urine, but we will try IV Lasix 80 mg one dose now to see if we can buy some time until dialysis. Encouraged CPAP use, bronchodilators. Thank you and we will follow with you. Kathrine Mckeon MD [facility] # [id number]
[2017-10-20] MEDS: Insulin Detemir 100 units/ml Vial (Levemir) SC SCH (00:11)
[2017-10-20] MEDS: Levalbuterol 0.63 MG/3 ML Inhal Soln UD IH SCH ×6 (00:20→10:20)
[2017-10-20] MEDS: Acetylcysteine 20% Inhal Soln (4ml) IH SCH ×3 (04:10→10:20)
[2017-10-20 06:33] VITALS: RESP 20; O2SAT 97
[2017-10-20] MEDS: Insulin Reg-LOW-Coverage SC SCH ×2 (06:50→11:30)
[2017-10-20] MEDS: POLYETHYLENE GLYCOL 3350 17 GM/Dose PACKET PO SCH (09:50)
[2017-10-20] MEDS: guaiFENesin 600 mg ER Tab PO SCH (09:50)
[2017-10-20] MEDS: Multivitamin Vitamin B Complex (Nephro-Vite) Tab PO SCH (09:50)
--- NOTE | 2017-10-20 10:16 | RAD ---
HISTORY: Shortness of breath/COPD COMPARISON: Comparison made with prior chest radiograph dated 10/07/2017 TECHNIQUE: Chest PA and lateral FINDINGS: LUNGS: Elevation right hemidiaphragm. The patchy bibasilar atelectasis right greater than left. Developing infiltrates could be excluded followup radiographs PLEURA: No significant pleural effusion identified. No pneumothorax apparent. CARDIOVASCULAR: Sternotomy wires and CABG clips again noted. Heart remains enlarged OSSEOUS STRUCTURES: No significant abnormalities. VISUALIZED UPPER ABDOMEN: Normal. OTHER FINDINGS: None. IMPRESSION: Elevation right hemidiaphragm. The patchy bibasilar atelectasis right greater than left. Developing infiltrates could be excluded followup radiographs
--- NOTE | 2017-10-20 10:48 | PN ---
DATE: 10/20/2017 SUBJECTIVE: The patient is an 81-year-old white male with exacerbation of COPD, end-stage renal disease on hemodialysis. The patient had a difficult night with breathing, shortness of breath, cough, congestion. The patient has had chronic lung disease and difficult to clear despite steroids, antibiotics, bronchodilators. The patient was scheduled to be discharged home today. However, he is in worsening respiratory distress today. Examination shows chronic rhonchi and rales at all lung figueroa today. The patient will have a repeat x-ray and possible return to the emergency room before admission. Gustavo Garcia MD
--- NOTE | 2017-10-20 12:23 | PN ---
DATE: 10/20/2017 SUBJECTIVE: The patient's tentative discharge from yesterday was canceled because of increased shortness of breath. Chest x-ray done today showed patchy infiltrates, likely representing fluid. The patient is being scheduled for emergent dialysis. He will likely be transitioned back to acute care from the TCU. MEDICATIONS: Medication list reviewed. The patient is currently on acetylcysteine, aspirin, Benadryl, insulin, Imdur, Lopressor, MiraLax, Mucinex, Nephro-Jarret, Pepcid, Plavix, prednisone, Renagel and Xopenex. OBJECTIVE: VITAL SIGNS: Blood pressure is 120/63, respiratory rate is 20, pulse ox is 97%, temperature is 97.8, pulse of 78. HEENT: Shows him to be normocephalic, atraumatic. Conjunctivae are pink. Sclerae are nonicteric. NECK: Supple. No neck vein distention. CHEST: Scattered rhonchi and rales bilaterally. Decreased breath sounds at bases. CARDIOVASCULAR: Shows a regular rate and rhythm without murmurs, rubs or gallops. ABDOMEN: Soft. Bowel sounds normal. No rebound, guarding or masses. EXTREMITIES: Show no lower extremity cyanosis, clubbing or edema with legs elevated in bed. LABORATORY DATA AND IMAGING: No recent chemistries. No recent CBC. These will be done predialysis today. ASSESSMENT: 1. Chronic obstructive pulmonary disease with exacerbation. This appears to have stabilized. However, the patient's increasing shortness of breath is likely secondary to increasing fluid. The patient will be dialyzed and ultrafiltrated today. He will likely be transitioned back to acute care for further monitoring rather than be discharged home. 2. History of decompensated congestive heart failure as noted above. 3. History of end-stage renal disease. Continue three times a week dialysis. 4. History of [id number] diabetes mellitus. The patient currently is on insulin. 5. History of hypertension. Blood pressure controlled on present medical therapy. 6. History of atherosclerotic heart disease, currently stable. 7. History of anemia secondary to chronic kidney disease. Repeat CBC today. Continue Aranesp and iron as per protocol. PLAN: 1. Discussed with staff in the TCU. Apparently Dr. Garcia will transfer the patient over to acute care post dialysis today. I am trying to get an emergent dialysis done for him today because of his shortness of breath and chest x-ray results and the findings on chest exam. 2. Continue inhalation therapy. 3. Continue renal diet and binder therapy. Alton Bailey MD
[2017-10-20 12:30] LABS: ALB/GLOB RATIO 1.3 (1.1-1.8); ALBUMIN 3.4 g/dL (3.0-4.8); CALCIUM 9.2 mg/dL (8.4-10.5)
[2017-10-20 12:31] LABS: BASO # 0.01 K/mm3 (0.0-2.0); BASO % 0.1 % (0.0-3.0); EOS # 0.2 (0.0-0.7); EOS % 1.3 % (1.5-5.0); GRAN # 15.11 (1.4-6.5); GRAN % 88.7 % (50.0-68.0); HEMOGLOBIN 9.3 g/dL (14.0-18.0); LYMPH # 1.1 (1.2-3.4); LYMPH % 6.4 % (22.0-35.0); MEAN CELL VOLUME 100.7 fl (80.0-105.0); MEAN CORPUSCULAR HEMOGLOBIN 31.6 pg (25.0-35.0); MEAN CORPUSCULAR HGB CONC 31.4 g/dl (31.0-37.0); MEAN PLATELET VOLUME 9.8 fl (7.0-11.0); MONO # 0.6 (0.1-0.6); MONO % 3.5 % (1.0-6.0); RBC 2.94 10^6/uL (3.5-6.1); RED CELL DISTRIBUTION WIDTH 16.2 % (11.5-14.5)
[2017-10-20 16:35] VITALS: BP 116/61; PULSE 77; TEMP 98.5
--- NOTE | 2017-10-20 17:34 | PN ---
DATE: 10/20/2017 PULMONARY PROGRESS NOTE REFERRING PHYSICIAN: Gustavo Garcia MD. SUBJECTIVE: He is examined and seen in the dialysis room, feels a little better. Overnight, he was struggling with breathing. During dialysis, he feels better. Still has a cough, shortness of breath. No nausea. No vomiting. No diarrhea. Still has leg swelling. OBJECTIVE: GENERAL: In no acute distress. VITAL SIGNS: Temp is 98, heart rate 78, respiratory rate is 20, blood pressure 120/63, pulse ox 97% on nasal cannula. HEENT: Moist mucous membrane. Crowded airway. NECK: Supple. No JVD. LUNGS: Have a two third of crackles with scattered rhonchi. HEART: S1 and S2. ABDOMEN: Soft, nontender. No organomegaly. EXTREMITIES: There is edema of the lower extremity. NEUROLOGICAL: Awake and alert. Follows simple command. LABORATORY DATA: LABORATORY DATA: Shows sodium 136, potassium 5.7, chloride 96, bicarbonate 24, BUN 102, creatinine 7.4, calcium is 9.3, phosphorus 4.6, magnesium 2.6, AST 32, ALT 48, alk phos is 76, albumin is 3.4. Chest x-ray done this morning shows elevated right hemidiaphragm, bilateral basilar atelectasis and infiltrate. MEDICATIONS: He is on Mucomyst 20% every 6 hours, aspirin 81 mg daily, Benadryl 25 mg every 6 hour p.r.n., insulin coverage, Imdur 60 mg daily, Levemir 35 units subcu at bedtime, metoprolol tartrate 25 mg twice a day, MiraLax 17 g daily, Mucinex LA 600 mg twice a day, Nephro vitamins daily, Pepcid 20 mg at bedtime, Plavix 75 mg daily, prednisone 5 mg daily, Renagel four times a day, Xopenex inhaled every 6 hours p.r.n. and every 4 hours round the clock. IMPRESSION AND PLAN: Cardiopulmonary compromise, mostly secondary to cardiomyopathy with pulmonary hypertension, renal failure and he is noncompliant with fluid balance. Also has a component of chronic lung disease, diabetes, hypertension, may have a component sleep apnea syndrome. Not very compliant with the continuous positive airway pressure and bilevel positive airway pressure. Nephrology note and Cardiology note reviewed. After dialysis, may go to acute site of the hospital. We will suggest admitting him on telemetry. Not a bad idea to start low dose of dobutamine, may start with 1.25 and titrate up to 2.5 mcg/kg per minute. Continue inhaled bronchodilator. Continue prednisone. Needs frequent dialysis. Also, need to educate the patient about importance of euvolemia. Thank you and we will follow with you. Kathrine Mckeon MD
--- NOTE | 2017-10-21 09:31 | PN ---
DATE: 10/18/2017 PULMONARY PROGRESS NOTE REFERRING PHYSICIAN: Gustavo Garcia MD. SUBJECTIVE: He is out of bed to chair. is bedside. Night was unremarkable. Feels overused BiPAP. Has a dialysis done yesterday. Still has some cough and sputum production. No nausea. No vomiting. No diarrhea. Has leg swelling. OBJECTIVE: GENERAL: In no acute distress. VITAL SIGNS: Temperature is 98, heart rate is 80, respiratory rate is 20, blood pressure 127/59, pulse ox 91% on nasal cannula. HEENT: Moist mucous membrane. Crowded airway. NECK: Supple. No JVD. LUNGS: Have crackles at one third up. HEART: S1 and S2. ABDOMEN: Soft, nontender. No organomegaly. EXTREMITIES: Does have edema. NEUROLOGICAL: Awake and alert. Follows simple command. LABORATORY DATA: Shows blood sugar this morning was 230. MEDICATIONS: He is on Mucomyst 20% inhaled every 6 hours, aspirin 81 mg daily, Benadryl 25 mg every 6 hours p.r.n., insulin coverage, Levemir 35 units subcutaneous at bedtime, metoprolol tartrate 25 mg twice a day, MiraLax 17 g daily, Mucinex LA 600 mg twice a day, Nephro vitamins daily, Pepcid 20 mg at bedtime, Plavix 75 mg daily, Prednisone 10 mg daily, Renagel 3 times a day, Xopenex inhaled every 6 hours. IMPRESSION AND PLAN: Chronic obstructive lung disease, interstitial infiltrate, hilar adenopathy, renal failure, dialysis dependent, diabetes, severe cardiomyopathy, pulmonary hypertension, may have a sleep apnea syndrome. Educated the patient about fluid balance. Spoke to family at bedside. We will place the patient on 1000 mL fluid intake. Continue bilevel positive airway pressure while sleeping. Decrease prednisone to 5 mg, slowly taper off. Fall precaution. Thank you and we will follow with you. Kathrine Mckeon MD
--- NOTE | 2017-10-22 07:16 | DS ---
HOSPITAL COURSE: The patient is discharged on 10/20/2017 from TCU. The patient had been on [facility] and he was transferred to TCU. He was doing physical therapy and occupational therapy and completing antibiotics, steroids, bronchodilators, etc. The patient's course has waxed and waned over period of eight days, however, became worse and pulmonary congestion over the last several days with increasing infiltrates on the chest x-ray and worsening congestion on physical examination. The patient was discharged to dialysis and then, possible return to the emergency room. FINAL DISCHARGE DIAGNOSES: Exacerbation of chronic obstructive pulmonary disease; pneumonia; acute chronic systolic and diastolic heart failure; end-stage renal disease, on hemodialysis and insulin-dependent diabetes mellitus. Gustavo Garcia MD
== END 2017-10-20 15:45 | disposition short-term general hospital (02) | DRG 945 ==
LOC: TRCU 18:11
PROVIDERS: ADMIT Internal Medicine; ATTEND Internal Medicine
PROC: 3E0F7GC Introduction of Other Therapeutic Substance into Respiratory Tract, Via Natural or Artificial Opening (ICD-10-PCS; 2017-10-11)
PROC: F07Z9FZ Gait Training/Functional Ambulation Treatment using Assistive, Adaptive, Supportive or Protective Equipment (ICD-10-PCS; principal; 2017-10-12)
PROC: F08Z4FZ Home Management Treatment using Assistive, Adaptive, Supportive or Protective Equipment (ICD-10-PCS; 2017-10-12)
PROC: 5A09557 Assistance with Respiratory Ventilation, Greater than 96 Consecutive Hours, Continuous Positive Airway Pressure (ICD-10-PCS; 2017-10-13)
DX: R53.1 Weakness (principal); N18.6 End stage renal disease; N25.81 Secondary hyperparathyroidism of renal origin; I13.2 Hypertensive heart and chronic kidney disease with heart failure and with stage 5 chronic kidney disease, or end stage renal disease; J44.1 Chronic obstructive pulmonary disease with (acute) exacerbation; I42.9 Cardiomyopathy, unspecified; K62.5 Hemorrhage of anus and rectum; R26.2 Difficulty in walking, not elsewhere classified; I25.10 Atherosclerotic heart disease of native coronary artery without angina pectoris; E11.22 Type 2 diabetes mellitus with diabetic chronic kidney disease; R13.12 Dysphagia, oropharyngeal phase; D63.1 Anemia in chronic kidney disease; I50.9 Heart failure, unspecified; K59.00 Constipation, unspecified; I27.20 Pulmonary hypertension, unspecified; H91.90 Unspecified hearing loss, unspecified ear; Z99.2 Dependence on renal dialysis; S60.512A Abrasion of left hand, initial encounter

== ENCOUNTER 2017-10-20 15:52 | Inpatient (IN) | payer MEDICARE, BC ==
[2017-10-20 16:41] LABS: BASO # 0.03 K/mm3 (0.0-2.0); BASO % 0.2 % (0.0-3.0); EOS # 0.2 (0.0-0.7); EOS % 0.9 % (1.5-5.0); GRAN # 16.59 (1.4-6.5); HEMOGLOBIN 10.5 g/dL (14.0-18.0); INR 1.02 (0.93-1.08); LYMPH # 0.9 (1.2-3.4); LYMPH % 4.7 % (22.0-35.0); MEAN CELL VOLUME 100.9 fl (80.0-105.0); MEAN CORPUSCULAR HEMOGLOBIN 31.7 pg (25.0-35.0); MEAN CORPUSCULAR HGB CONC 31.4 g/dl (31.0-37.0); MEAN PLATELET VOLUME 9.7 fl (7.0-11.0); MONO # 1.4 (0.1-0.6); MONO % 7.2 % (1.0-6.0); PLATELET COUNT 223 10^3/uL (120.0-450.0); PROTHROMBIN TIME 11.6 SECONDS (9.4-12.5); RBC 3.31 10^6/uL (3.5-6.1); RED CELL DISTRIBUTION WIDTH 16.2 % (11.5-14.5); WHITE BLOOD COUNT 19.1 10^3/ul (4.5-11.0)
[2017-10-20 16:49] LABS: ALB/GLOB RATIO 1.2 (1.1-1.8); ALBUMIN 3.9 g/dL (3.0-4.8); CALCIUM 9.5 mg/dL (8.4-10.5)
[2017-10-20 17:18] LABS: TROPONIN I 0.22 ng/mL
[2017-10-20 17:22] LABS: VENOUS BLOOD GAS BASE EXCESS 6.3 mmol/L (0.0-2.0); VENOUS BLOOD GAS PO2 38 mm/Hg (30-55); VENOUS BLOOD PH 7.38 (7.32-7.43)
[2017-10-20] MEDS ORDERED: Piperacill/Tazo 4.5gm in NS 4.5 GM/100 ML BAG IVPB STA (17:36)
[2017-10-20] MEDS ORDERED: Vancomycin 1gm in NS 250ml 1 GM/250 ML BAG IVPB STA (17:37)
--- NOTE | 2017-10-20 17:41 | ED PDOC ---
Arrival/HPI - General Chief Complaint: Respiratory Distress Time Seen by Provider: 10/20/17 15:56 Historian: Patient, Family - History of Present Illness Narrative History of Present Illness (Text): 81yoM, esrd on hd which he had dialysis today, copd, htn, cad, and was recently dc'd today to [facility] and now having recurrent sob/cough but no chest pain/ abdomen pain/numbness/tingling/abdomen pain. 10/20/17 17:39 Time/Duration: > week (2) Symptom Onset: Gradual Symptom Course: Unchanged Quality: Other (no pain) Activities at Onset: Rest Context: Sitting Past Medical History - Provider Review Nursing Documentation Reviewed: Yes - Travel History Have you recently traveled outside [place] w/in the past 3 mons?: No - Infectious Disease Hx of Infectious Diseases: None - Tetanus Immunization Tetanus Immunization: Unknown - Cardiac Hx Cardiac Disorders: Yes Hx Congestive Heart Failure: Yes Hx Hypertension: Yes - Pulmonary Hx Respiratory Disorders: Yes Hx Chronic Obstructive Pulmonary Disease (COPD): Yes - Neurological Hx Neurological Disorder: No - HEENT Hx HEENT Disorder: Yes (eyeglasses) Hx Cataracts: Yes (b/l sx) Other/Comment: BILATERAL TUNUNAK - Renal Hx Renal Disorder: Yes Hx Renal Failure: Yes (HD MWF) - Endocrine/Metabolic Hx Endocrine Disorders: Yes Hx Diabetes Mellitus Type 1: Yes - Hematological/Oncological Hx Blood Disorders: No - Integumentary Hx Dermatological Disorder: Yes Other/Comment: dry and slightly discolored skin ble, buttocks slightly reddened , generalized eccymosis various stages of healing, b/l feet +1 edema flakey dry skin and skin redness both feet, thick hard toenails b/l feet, ble brown skin discolorations, multiple age spots to back, small dry scabs ble - Musculoskeletal/Rheumatological Hx Musculoskeletal Disorders: No - Gastrointestinal Hx Gastrointestinal Disorders: Yes (hx bleeding ulcers) - Genitourinary/Gynecological Hx Genitourinary Disorders: Yes (anuria) - Psychiatric Hx Psychophysiologic Disorder: No Hx Substance Use: No - Surgical History Hx Open Heart Surgery: Yes (2006) Other/Comment: maged av shunt, fistulagrams - Anesthesia Hx Anesthesia: Yes Hx Anesthesia Reactions: Yes (CRYING & CONFUSION) Hx Malignant Hyperthermia: No - Suicidal Assessment Feels Threatened In Home Enviroment: No Family/Social History Family/Social History: Unknown Family HX Smoking Status: Former Smoker Hx Alcohol Use: No Hx Substance Use: No Hx Substance Use Treatment: No Allergies/Home Meds Allergies/Adverse Reactions: Allergies No Known Allergies Allergy (Verified 10/20/17 16:09) Home Medications: Home Meds Medication Instructions Recorded Confirmed Aspirin [Aspirin Chewable] 81 mg PO Q4XW 07/11/16 10/11/17 Insulin Lispro-HIGH [humALOG HIGH] 0 units SC ACB 02/24/17 10/11/17 Isosorbide Mononitrate [Imdur] 30 mg PO BID 10/07/17 10/11/17 Review of Systems - Review of Systems Constitutional: Normal Eyes: Normal ENT: Normal Respiratory: SOB, Cough Cardiovascular: Normal Gastrointestinal: Normal Genitourinary Male: Normal Musculoskeletal: Normal Skin: Normal Neurological: Normal Endocrine: Normal Hemo/Lymphatic: Normal Psychiatric: Normal Physical Exam Vital Signs Reviewed: Yes Vital Signs Temp Pulse Resp BP Pulse Ox 10/20/17 17:52 68 18 141/87 96 10/20/17 16:10 18 10/20/17 15:55 98.2 F 76 24 95 Temperature: Afebrile Blood Pressure: Hypertensive Pulse: Regular Respiratory Rate: Tachypneic Appearance: Positive for: Well-Appearing, Non-Toxic, Comfortable Pain Distress: None Mental Status: Positive for: Alert and Oriented X 3 - Systems Exam Head: Present: Atraumatic, Normocephalic Pupils: Present: PERRL Extroacular Muscles: Present: EOMI Conjunctiva: Present: Normal Ears: Present: Normal Mouth: Present: Moist Mucous Membranes Pharnyx: Present: Normal Nose (Internal): Present: Normal Inspection Neck: Present: Normal Range of Motion Respiratory/Chest: Present: Rales Cardiovascular: Present: Regular Rate and Rhythm Abdomen: No: Tenderness, Distention, Normal Bowel Sounds, Peritoneal Signs, Rebound, Guarding, McBurney's Point Tender, Rovsing's Sign Present, Hernias, Feeding Tubes, Ostomy Tubes, Mass/Organomegaly, Scars, Other Back: Present: Normal Inspection Upper Extremity: Present: Other (lue fistula with thrill.) Lower Extremity: Present: Normal Inspection, Edema, Capillary Refill < 2 s. No : CALF TENDERNESS, NORMAL PULSES, Cyanosis, Normal ROM, Nicola's Sign, Tenderness , Swelling, Erythema, Deformity, Temperature Abnormalties, Neurovascularly Intact, Other Neurological: Present: GCS=15, CN II-XII Intact, Speech Normal, Motor Func Grossly Intact Skin: Present: Warm, Normal Color Psychiatric: Present: Alert, Oriented x 3, Normal Insight, Normal Concentration Medical Decision Making ED Course and Treatment: 81yoM, esrd on hd which he had dialysis today, copd, htn, cad, and was recently dc'd today to [facility] and now having recurrent sob/cough but no chest pain/ abdomen pain/numbness/tingling/abdomen pain. wbc 19 from 17 prior lactic acid 2.9 code sepsis - iv zosyn, iv vancomycin with ivf held due to heart failure/esrd. trop 0.22 with out ecg changes thus troponemia in setting of esrd with demand ischemia - aspirin given. influenza negative cxr crowded vascular markings, b/l effusions. 10/20/17 17:42 10/20/17 17:45 10/20/17 18:08 d/w Dr. Garcia who stated agreed with code sepsis, vanco/zosyn, hold fluids but bipap for now for fluid shift. trop 0.22 without ecg change, aspirin for now and can admit to telemetry for pneuonia/chf. 10/20/17 18:09 Reassessment Condition: Re-examined - Lab Interpretations Lab Results: 10/20/17 16:10 10/20/17 16:10 Lab Results 10/20/17 17:00: pO2 38, VBG pH 7.38, VBG pCO2 56.0, VBG HCO3 33.1 H, VBG Total CO2 34.8 H, VBG O2 Sat (Calc) 71.9 H, VBG Base Excess 6.3 H, VBG Potassium 4.4, Glucose 148 H, Lactate 2.9 H, FiO2 21.0, Sodium 138.0, Chloride 99.0, Venous Blood Potassium 4.4 10/20/17 16:55: Influenza Typ A,B (EIA) Negative for flu a/b 10/20/17 16:10: Sodium 142, Potassium 4.7, Chloride 96 L, Carbon Dioxide 30, Anion Gap 20, BUN 49 H, Creatinine 4.2 H, Est GFR ( Amer) 17, Est GFR ( Non-Af Amer) 14, Random Glucose 67 L, Calcium 9.5, Magnesium 2.4 H, Total Bilirubin 0.7, AST 40, ALT 55, Alkaline Phosphatase 93, Lactate Dehydrogenase 678, Total Creatine Kinase 49, Troponin I 0.22 H* D, NT-Pro-B Natriuret Pep 79044 H, Total Protein 7.1, Albumin 3.9, Globulin 3.2, Albumin/Globulin Ratio 1.2 10/20/17 16:10: PT 11.6, INR 1.02, APTT 25.0 L 10/20/17 16:10: WBC 19.1 H, RBC 3.31 L, Hgb 10.5 L, Hct 33.4 L, MCV 100.9, MCH 31.7, MCHC 31.4, RDW 16.2 H, Plt Count 223, MPV 9.7, Gran % 87.0 H, Lymph % ( Auto) 4.7 L, Floyd % (Auto) 7.2 H, Eos % (Auto) 0.9 L, Baso % (Auto) 0.2, Gran # 16.59 H, Lymph # (Auto) 0.9 L, Floyd # (Auto) 1.4 H, Eos # (Auto) 0.2, Baso # ( Auto) 0.03, Neutrophils % (Manual) 84 H, Lymphocytes % (Manual) 8 L, Monocytes % (Manual) 7 H, Eosinophils % (Manual) 1 I have reviewed the lab results: Yes - RAD Interpretation Radiology Orders: 10/20/17 15:59 CHEST PORTABLE [RAD] Stat Reverse Logistics Analyst: Radiologist - EKG Interpretation Interpreted by ED Physician: Yes (wide qrs rhythm) Type: 12 lead EKG Comparison: Similar to previous EKG (10/07/17) - Medication Orders Current Medication Orders: Vancomycin HCl (Vancomycin 1gm) 1 gm in 250 mls @ 167 mls/hr IVPB STAT STA PRN Reason: Protocol Stop: 10/20/17 19:06 Discontinued Medications Aspirin (Aspirin Chewable) 324 mg PO STAT STA Stop: 10/20/17 17:39 Last Admin: 10/20/17 18:03 Dose: 324 mg Piperacillin Sod/Tazobactam Sod (Zosyn 4.5 Gm In Ns 100ml) 4.5 gm in 100 mls @ 200 mls/hr IVPB STAT STA PRN Reason: Protocol Stop: 10/20/17 18:05 Last Admin: 10/20/17 18:03 Dose: 200 mls/hr eMAR Start Stop Document 10/20/17 18:03 SF (Rec: 10/20/17 18:04 SF [id number]) Intravenous Solution Start Date 10/20/17 Start Time 18:03 End Date 10/20/17 End time 18:33 Total Infusion Time 30 Disposition/Present on Arrival - Present on Arrival Any Indicators Present on Arrival: No History of DVT/PE: No History of Uncontrolled Diabetes: Yes Urinary Catheter: No History of Decub. Ulcer: No History Surgical Site Infection Following: None - Disposition Have Diagnosis and Disposition been Completed?: Yes Diagnosis: Pneumonia, ESRD (end stage renal disease), Elevated troponin, CHF (congestive heart failure) Disposition: HOSPITALIZED Disposition Time: 17:46 Patient Plan: Admission, Telemetry Patient Problems: Current Active Problems Problem Status Onset ESRD (end stage renal disease) Acute Pneumonia Acute Elevated troponin Acute Condition: IMPROVED Discharge Instructions (ExitCare): Heart Failure (ED) Referrals: Gustavo Garcia MD [Primary Care Provider] - Follow up with primary Forms: Hingi (Macedonian)
--- NOTE | 2017-10-20 17:44 | RAD ---
HISTORY: 81yoM, sob COMPARISON: Comparison chest 10/20/2017 FINDINGS: LUNGS: Poor inspiration with low lung volumes, crowded bronchovascular markings and mild bibasilar atelectasis. Central pulmonary vasculature is also increased which may in part be due to low lung volumes however mild chronic compensated pulmonary edema/ CHF suspected. Probable bilateral effusions. PLEURA: As above. No pneumothorax apparent. CARDIOVASCULAR: Cardiomegaly. Sternotomy wires again noted OSSEOUS STRUCTURES: No significant abnormalities. VISUALIZED UPPER ABDOMEN: Normal. OTHER FINDINGS: None. IMPRESSION: Poor inspiration with low lung volumes, crowded bronchovascular markings and mild bibasilar atelectasis. Central pulmonary vasculature is also increased which may in part be due to low lung volumes however mild chronic compensated pulmonary edema/ CHF suspected. Probable bilateral effusions.
[2017-10-20 17:56] LABS: EOSINOPHIL 1 % (0.0-3.0); LYMPHOCYTE 8 % (22.0-35.0); MONOCYTE 7 % (1.0-6.0); NEUTROPHIL 84 % (50.0-70.0)
[2017-10-20 21:30] LABS: VENOUS BLOOD GAS BASE EXCESS 7.2 mmol/L (0.0-2.0); VENOUS BLOOD GAS PO2 22 mm/Hg (30-55); VENOUS BLOOD PH 7.42 (7.32-7.43)
[2017-10-20] MEDS: Albuterol-Ipratrop 3 mg / 0.5 (3 ml) UD IH SCH (21:50)
[2017-10-20] MEDS: Acetylcysteine 20% Inhal Soln (4ml) IH SCH (21:50)
[2017-10-20] MEDS ORDERED: Pneumococcal 23-Valent Vaccine IM ONE (22:02)
[2017-10-20] MEDS: Insulin Reg-LOW-Coverage SC SCH (22:18)
[2017-10-21 01:25] LABS: VENOUS BLOOD GAS BASE EXCESS 5.2 mmol/L (0.0-2.0); VENOUS BLOOD GAS PO2 52 mm/Hg (30-55); VENOUS BLOOD PH 7.39 (7.32-7.43)
[2017-10-21] MEDS: Albuterol-Ipratrop 3 mg / 0.5 (3 ml) UD IH SCH ×4 (01:35→20:18)
[2017-10-21] MEDS: Acetylcysteine 20% Inhal Soln (4ml) IH SCH ×4 (01:35→20:18)
--- NOTE | 2017-10-21 06:30 | PCM.SEPTIC ---
<David Lopez - Last Filed: 10/21/17 06:29> Sepsis Progress Note - Reassessment Type Date of Evaluation: 10/21/17 Time of Evaluation: 06:29 Reassessment Type: Non-invasive reassessment - Non Invasive Reassessment Were the most recent vital sign reviewed: Yes Vital Sign (Latest): Temp Pulse Resp BP Pulse Ox 99 F 83 18 138/70 97 10/21/17 05:52 10/21/17 05:52 10/21/17 05:52 10/21/17 05:52 10/21/17 05:52 Cardiovascular: Yes: Regular Rate, Rhythm Respiratory: Yes: Rales Capillary Refill: Normal (Less than 2 sec) Skin: Normal Color <Elizabeth Ware - Last Filed: 10/21/17 20:32> Sepsis Progress Note - Non Invasive Reassessment Vital Sign (Latest): Temp Pulse Resp BP Pulse Ox 98.7 F 97 H 20 124/64 97 10/21/17 17:48 10/21/17 18:00 10/21/17 17:48 10/21/17 17:48 10/21/17 05:52 Attending/Attestation - Attestation I have personally seen and examined this patient.: No I have fully participated in the care of the patient.: Yes I have reviewed all pertinent clinical information, including history, physical exam and plan: Yes
[2017-10-21] MEDS ORDERED: Insulin Lispro (HUMAlog) HIGH Coverage SC SCH (07:30)
[2017-10-21] MEDS: Insulin Reg-LOW-Coverage SC SCH ×4 (07:56→22:30)
--- NOTE | 2017-10-21 08:43 | HP ---
HISTORY OF PRESENT ILLNESS: An 81-year-old white male; end-stage renal disease; hypertension; hypertensive renal disease, on hemodialysis; COPD. The patient recently was in TCU with exacerbation of COPD and fluid overload. The patient was sent from TCU to dialysis; however, his shortness of breath and recent chest x-ray showed increasing infiltrates consistent with possible pneumonia. The patient was sent from dialysis to the ER, was evaluated and admitted. PHYSICAL EXAMINATION: GENERAL: Physical examination shows a well-developed, well-nourished white male, hard of hearing, in no apparent distress. HEENT: Essentially within normal limits. HEART: Regular sinus rhythm. CHEST: Shows rhonchi and rales at all lung figueroa, fairly extensive 3-4+. EXTREMITIES: Without cyanosis, clubbing, edema. ABDOMEN: Benign. IMPRESSION: An 81-year-old white male with increasing infiltrates consistent with pneumonia, exacerbation of chronic obstructive pulmonary disease, end-stage renal disease, congestive heart failure, acute systolic heart failure on chronic systolic and diastolic heart failure. Gustavo Garcia MD
[2017-10-21] MEDS: Multivitamin Vitamin B Complex (Nephro-Vite) Tab PO SCH (09:40)
[2017-10-21] MEDS: guaiFENesin 600 mg ER Tab PO SCH ×2 (09:40→17:12)
[2017-10-21] MEDS: MethylPREDNISolone 40 mg Vial IVP SCH ×2 (09:40→22:31)
[2017-10-21] MEDS: Levalbuterol 0.63 MG/3 ML Inhal Soln UD IH SCH ×3 (10:51→23:23)
[2017-10-21 12:26] LABS: BASO # 0.02 K/mm3 (0.0-2.0); BASO % 0.1 % (0.0-3.0); EOS # 0.2 (0.0-0.7); GRAN # 13.26 (1.4-6.5); GRAN % 90.8 % (50.0-68.0); HEMOGLOBIN 9.5 g/dL (14.0-18.0); LYMPH # 0.4 (1.2-3.4); MEAN CELL VOLUME 102.6 fl (80.0-105.0); MEAN CORPUSCULAR HGB CONC 30.3 g/dl (31.0-37.0); MEAN PLATELET VOLUME 9.6 fl (7.0-11.0); MONO # 0.8 (0.1-0.6); MONO % 5.1 % (1.0-6.0); RBC 3.06 10^6/uL (3.5-6.1); RED CELL DISTRIBUTION WIDTH 16.5 % (11.5-14.5); WHITE BLOOD COUNT 14.6 10^3/ul (4.5-11.0)
[2017-10-21 12:43] LABS: ALB/GLOB RATIO 1.2 (1.1-1.8); ALBUMIN 3.3 g/dL (3.0-4.8); CALCIUM 9.2 mg/dL (8.4-10.5)
[2017-10-21 12:51] LABS: TROPONIN I 0.15 ng/mL
[2017-10-21] MEDS: Insulin Detemir 100 units/ml Vial (Levemir) SC SCH (22:29)
[2017-10-21] MEDS ORDERED: DOBUTamine 500mg/250ml D5W 500 MG/250 ML BAG IV SCH (23:00)
--- NOTE | 2017-10-21 23:19 | CARD ---
APPROVED REPORT EKG Measurement Heart [id number] <Conclusion> Consider A Fib with RVR LBBB Abnormal ECG
--- NOTE | 2017-10-22 00:03 | CON ---
DATE: 10/21/2017 The patient admitted for Dr. Garcia. REFERRING PHYSICIAN: Gustavo Garcia MD REASON FOR CONSULTATION: To provide dialysis services for a patient known to me from both inpatient hospitalizations and outpatient dialysis, who was transferred over from the TCU because of increasing shortness of breath, possible CHF, possible pneumonia. HISTORY OF PRESENT ILLNESS: The patient is an 81-year-old white male with a history of end-stage renal disease on chronic maintenance hemodialysis, patient dialyzes at [facility] on Friday, Friday, Friday; history of COPD, long history of cigarette smoking, quit in 2015, history of ASHD with CHF, history of IDDM, hypertension, anemia and secondary hyperparathyroidism. The patient was preparing to be discharged home from the TCU, but in the last 24 hours during his stay there, developed increasing shortness of breath. The discharge was held. We were not able to do dialysis on Friday because of staffing issues. The dialysis was held until Friday. The patient was noted to be acutely short of breath. He was transferred from the TCU to dialysis and from there to the emergency room where he was evaluated. Chest x-ray was done which showed CHF, bilateral pleural effusions, possible bilateral pneumonia. Hence, the patient is currently on antibiotic therapy. We were asked to evaluate the patient to provide dialysis services. PAST MEDICAL HISTORY: Significant for end-stage renal disease, history of COPD, history of CHF with ASHD. Past history of pneumonias. History of IDDM. History of hypertension. History of anemia secondary to chronic kidney disease and history of secondary hyperparathyroidism. The patient has a left upper extremity AV fistula. MEDICATIONS: At home or in the TCU include that of Solu-Medrol, Mucinex, Nephro-Jarret, Renagel, Lopressor, Xopenex, Imdur, insulin, Doryx, Plavix, aspirin, DuoNeb, and acetylcysteine. Medications presently in hospital include that of acetylcysteine, aspirin, DuoNeb, insulin, Lopressor, meropenem, Mucinex, Nephro-Jarret, Plavix, Renagel, Solu-Medrol and Xopenex. ALLERGIES: NO KNOWN ALLERGIES TO MEDICATIONS. SOCIAL HISTORY: Presently, no history of cigarette smoking or alcohol use. The patient smoked cigarettes until 2015. FAMILY HISTORY: Positive for hypertension. REVIEW OF SYSTEMS: Similar to old charts. Ten-plus systems reviewed with the patient. GENERAL: The patient states continued loss of appetite and weight loss. ENT: Denies any hearing or visual problems. PULMONARY: Positive for shortness of breath. History of COPD, history of past pneumonias. CARDIAC: History of CHF. No chest pains. GASTROINTESTINAL: No nausea, vomiting, diarrhea or constipation. GENITOURINARY: End-stage renal disease. ENDOCRINE: History of diabetes and history of secondary hyperparathyroidism. MUSCULOSKELETAL: No complaints. NEUROLOGIC: No past history of CVA, TIA, seizures or syncope. HEMATOLOGY AND ONCOLOGY: History of anemia secondary to chronic kidney disease. No history of malignancy. PSYCHIATRIC: History is negative. PHYSICAL EXAMINATION: GENERAL: The patient is currently seen eating lunch on telemetry on 2R. He states his breathing is significantly improved, but he does have audible rhonchi. VITAL SIGNS: Blood pressure 138/70, temperature 99, respiratory rate is 18, with a pulse of 83. Pulse ox is 97%. HEENT: Shows him to be normocephalic, atraumatic. Conjunctiva are pale. Sclerae are nonicteric. Pupils equal, round and reactive to light and accommodation. Extraocular muscles are intact. Posterior pharynx is normal. NECK: Supple. No neck vein distention. No thyromegaly. No lymphadenopathy. No bruits. CHEST: Audible rhonchi. No wheezing. No rales. Slight decreased breath sounds at the bases. CARDIOVASCULAR: Shows a regular rate and rhythm with aortic stenosis, aortic insufficiency, tricuspid regurgitation. No S3. No S4. No rub. ABDOMEN: Soft. Bowel sounds normal. No rebound, guarding or masses. BACK: No CVAT. No spinal tenderness. EXTREMITIES: Show a working left upper extremity AV fistula. Positive thrill. Positive bruit. No lower extremity edema with the patient lying supine in bed. Diminished lower extremity pulses bilaterally. NEUROLOGIC: Shows him to be alert, oriented x3, with no gross focal motor or sensory deficits noted. IMAGING DATA: Admitting chest x-ray to the hospital showed CHF, bilateral basilar atelectasis and infiltrates, and bilateral pleural effusions. LABORATORY DATA: CBC: White blood cell count 14.6 today, with a hemoglobin of 9.5, platelet count is 179,000. Coags, PTT of 25, PT of 11.6. Blood gas today showed a pH of 7.39, a bicarbonate level of 31.5, with pCO2 of 52, with a pO2 of 89.3. Lactic acid is mildly elevated at 2.2. Chemistries: Sodium 140, potassium 5.2, chloride 97. BUN 62, with a creatinine of 5.4. Glucose is 206. Calcium and phosphorus are normal. Magnesium level was elevated at 2.5. Albumin level is 3.3. Influenza titers were negative on 10/20/2017. Microbiology: No cultures are available for comment. ASSESSMENT: 1. Increasing shortness of breath in the setting of mild congestive heart failure in the setting of chronic changes on his chest x-ray along with possible superimposed pneumonia. The patient will continue on antibiotic therapy. He will continue inhalation therapy and steroids. Stressed to the patient the importance of volume restriction as the patient does gain large amounts of weight between dialysis treatments, all of which is related to fluid intake. 2. History of end-stage renal disease. The patient will continue Friday, Friday and Friday dialysis. 3. History of chronic obstructive pulmonary disease secondary to history of cigarette smoking. The patient has intermittent acute exacerbations associated with pneumonia and bronchitis. 4. 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 The patient also has severe pulmonary hypertension. This also likely contributes to his increasing shortness of breath. 5. History of insulin dependent diabetes mellitus. Continued insulin with close monitoring of glucose levels. 6. History of hypertension. Blood pressure controlled on present medications. 7. History of anemia. Hemoglobin appears to be stable in the 9 to 10 range. Continue Aranesp per protocol. 8. History of secondary hyperparathyroidism. Phosphorus level is excellent at 4.2. Calcium is 9.2. We will continue renal diet along with binder therapy. PLAN: 1. Continue to monitor the patient in acute care on telemetry. 2. Cautioned the patient about decreasing p.o. fluid intake. I will remove the water pitcher from his bedside. 3. Continue 3 times a week dialysis with maximum ultrafiltration as tolerated. 4. Continue antibiotic therapy, pending cultures. I am not clear that he indeed does have a pneumonia. 5. Continue steroids with quick taper when able. 6. Continue present cardiac medicines. 7. Continue present blood pressure medications. 8. Continue to monitor labs 3 times a week with dialysis. 9. Pulmonary consult and Infectious Disease consult in progress. Thank you for letting me partake and share in the care of our mutual patient. Alton Bailey MD
--- NOTE | 2017-10-22 04:23 | CON ---
DATE: 10/21/2017 The patient is seen in room 275, bed 1. CHIEF COMPLAINT: Shortness of breath times one day. HISTORY OF PRESENT ILLNESS: This is an 81-year-old male with end-stage renal disease, on hemodialysis; hypertension; diabetes; coronary artery disease; chronic obstructive lung disease; long-time smoker with low ejection fraction, has echo on 05/2017, who was admitted with diagnoses of pneumonia and sepsis. Infectious Disease consult requested for antibiotics. REVIEW OF SYSTEMS: Reveals the patient is a very poor historian, mild shortness of breath and chest pain. Minimal cough. No abdominal pain. No diarrhea or constipation. No bright red blood per rectum. No melena. PAST MEDICAL HISTORY: Significant for end-stage renal disease, on hemodialysis; hypertension; diabetes; coronary artery disease; chronic obstructive lung disease. PAST SURGICAL HISTORY: Significant for coronary artery bypass graft. ALLERGIES: THE PATIENT HAS NO KNOWN ALLERGIES. MEDICATIONS AT HOME: Include Solu-Medrol, metoprolol, insulin, aspirin. PHYSICAL EXAMINATION: GENERAL: On exam, the patient is in bed with no acute distress, nontoxic; however, appears much older than his age of 81. VITAL SIGNS: Temperature of 99; heart rate of 118; respiratory rate of 20, it goes up to 24; and blood pressure is 113/60. HEENT: Unremarkable. NECK: Supple. LUNGS: Have decreased breath sounds. HEART: Normal S1 and S2. ABDOMEN: Soft, nontender. No organomegaly. No rebound, no guarding, no masses. LABORATORY DATA: Reveals a white count of 19,000, hemoglobin of 10, platelets of 223. Chemistries are, BUN of 63, creatinine is 5.4. Procalcitonin is 0.7. Troponin is elevated at 0.15. Influenza is negative. Microbiology reveals the blood cultures are negative. Chest x-ray reveals edema and congestive heart failure and questionable infiltrate. ASSESSMENT AND PLAN: This is an 81-year-old male with end-stage renal disease, on hemodialysis; hypertension; diabetes; coronary artery disease; chronic obstructive pulmonary disease; low ejection fraction of 21%; long-time smoker, now presenting with sepsis with healthcare-associated pneumonia with acute lxm-CA-fovodeioc myocardial infarction with acute systolic congestive heart failure with chronic congestive heart failure. Currently, we will treat the patient with IV vancomycin intermittently and meropenem and we will check on the panculture results and we will follow closely with you. Leland Tao MD
[2017-10-22] MEDS: Albuterol-Ipratrop 3 mg / 0.5 (3 ml) UD IH SCH ×5 (04:35→20:00)
[2017-10-22] MEDS: Acetylcysteine 20% Inhal Soln (4ml) IH SCH ×5 (04:36→20:00)
[2017-10-22] MEDS: Levalbuterol 0.63 MG/3 ML Inhal Soln UD IH SCH ×6 (04:36→20:01)
[2017-10-22] MEDS: Insulin Reg-LOW-Coverage SC SCH ×4 (08:05→21:44)
[2017-10-22] MEDS: Insulin Regular 1 UNITS/0.01 ML ML SC SCH ×2 (09:19→21:45)
[2017-10-22] MEDS: guaiFENesin 600 mg ER Tab PO SCH ×2 (09:20→17:19)
[2017-10-22] MEDS: Multivitamin Vitamin B Complex (Nephro-Vite) Tab PO SCH (09:20)
--- NOTE | 2017-10-22 10:26 | CON ---
DATE: 10/21/2017 PULMONARY CONSULTATION REFERRING PHYSICIAN: Gustavo Garcia MD. REASON FOR CONSULTATION: Pulmonary infiltrate, cough, shortness of breath, may have sleep apnea syndrome. HISTORY OF PRESENT ILLNESS: This is an 81-year-old gentleman well known to me with multiple medical issues including severe cardiomyopathy; chronic lung disease; renal failure, dialysis dependent; coronary artery disease; diabetes; may have a component of aspiration, oropharyngeal dysphagia, was at TCU . Condition became worse requiring multiple dialyses, transferred to acute site of the hospital, presently lying in the bed, was dialyzed yesterday, feels a little bit better but still has cough, shortness of breath. No chest pain. No nausea. No vomiting. No diarrhea. PAST MEDICAL HISTORY: As per history of present illness. ALLERGIES: NONE KNOWN. SOCIAL HISTORY: Positive history of smoking. Denies any alcohol use. FAMILY HISTORY: No significant cardiopulmonary disease reported. MEDICATIONS: He is on Mucomyst 20% inhaled every 6 hours, aspirin 81 mg daily, DuoNeb every 6 hours [id number], Imdur ER 30 mg twice a day, Levemir 40 units subcu at bedtime, metoprolol tartrate 25 mg twice a day, meropenem 250 mg every 12 hours, Mucinex LA 600 mg twice a day, vitamin B complex daily, Plavix 75 mg daily, Renagel 800 mg three times a day, Solu-Medrol 40 mg every 12 hours, and Xopenex inhaled every 4 hours. REVIEW OF SYSTEMS: No headache, no rhinitis. Has a cough, shortness of breath. No chest pain. No nausea, no vomiting. No abdominal pain. Does have leg swelling. PHYSICAL EXAMINATION: GENERAL: Lying in the recliner. VITAL SIGNS: Temperature is 98, heart rate is 97, respiratory rate is 20, blood pressure 124/64, pulse ox 97% on 2 liters nasal cannula. HEENT: Moist mucous membrane. Crowded airway. Mallampati score is 4. NECK: Supple. No JVD. LUNGS: Have a few crackles, scattered rhonchi. HEART: S1 and S2. ABDOMEN: Soft, nontender. No organomegaly. EXTREMITIES: Trace edema. NEUROLOGIC: Awake, alert, and follows simple commands. LABORATORY DATA: Shows hemoglobin 9.5, hematocrit 31.4, WBC 14.6, platelet is 179. VBG shows pH 7.39, pCO2 of 52 52. Sodium 140, potassium 5.2, chloride 97, bicarbonate 29, BUN 63, creatinine 5.4, glucose 206, calcium 9.2, phosphorus 4.2, magnesium 2.5. AST 34, ALT 56, alkaline phosphatase is 86. Troponin 0.15. Albumin is 3.3. Microbiology, blood culture has been negative. Chest x-ray done yesterday shows elevated right hemidiaphragm; patchy bibasilar atelectasis, right greater than the left; developing infiltrate could be excluded. IMPRESSION AND PLAN: Cardiopulmonary compromise with severe cardiomyopathy and systolic dysfunction. There may be a component of aspiration pneumonia; renal failure, dialysis dependent; may have sleep apnea syndrome; hypertension; diabetes. Spoke to the patient and the patient's and daughter at bedside. All the questions answered. Continue to encourage BIPAP, on steroids. We will add insulin doses with the steroids, antibiotics. We will place him on dobutamine, starting very low dose 1.25 mcg and see how he does. Also, place him on 1000 mL fluid restriction. Thank you and we will follow with you. Kathrine Mckeon MD
[2017-10-22 11:22] LABS: BASO # 0.01 K/mm3 (0.0-2.0); BASO % 0.1 % (0.0-3.0); GRAN # 12.4 (1.4-6.5); GRAN % 91.9 % (50.0-68.0); HEMOGLOBIN 8.3 g/dL (14.0-18.0); LYMPH # 0.8 (1.2-3.4); LYMPH % 5.9 % (22.0-35.0); MEAN CORPUSCULAR HEMOGLOBIN 31.6 pg (25.0-35.0); MEAN CORPUSCULAR HGB CONC 31.6 g/dl (31.0-37.0); MEAN PLATELET VOLUME 9.8 fl (7.0-11.0); MONO # 0.3 (0.1-0.6); MONO % 2.1 % (1.0-6.0); RBC 2.63 10^6/uL (3.5-6.1); RED CELL DISTRIBUTION WIDTH 16.1 % (11.5-14.5); WHITE BLOOD COUNT 13.5 10^3/ul (4.5-11.0)
[2017-10-22 11:27] LABS: ALB/GLOB RATIO 1.2 (1.1-1.8); ALBUMIN 3.2 g/dL (3.0-4.8); CALCIUM 9.1 mg/dL (8.4-10.5)
--- NOTE | 2017-10-22 11:36 | PN ---
DATE: 10/22/2017 SUBJECTIVE: An 81-year-old white male readmitted with exacerbation of COPD, pneumonia, end-stage renal disease, CHF, COPD. Patient is improved today. His chest shows increased breath sounds bilaterally, decreased rhonchi bilaterally. Coughing productive today. White count has dropped from 19,000 to 14,000 . He still has some elevated blood sugars and we will change his Solu-Medrol to prednisone 20. Continue IV antibiotics, bronchodilators, and BiPAP. BiPAP has improved him markedly overnight. Gustavo Garcia MD
[2017-10-22] MEDS ORDERED: Darbepoetin Alfa 60 mcg/ml Inj IVP ONE (11:56)
[2017-10-22 13:24] VITALS: BMI 25.1
[2017-10-22] MEDS ORDERED: DOBUTamine 500mg/250ml D5W 500 MG/250 ML BAG IV PRN (13:57)
--- NOTE | 2017-10-22 14:18 | PN ---
DATE: 10/22/2017 SUBJECTIVE: The patient is seen in the dialysis unit. He is awake, but lethargic. He complains of shortness of breath. PHYSICAL EXAMINATION: GENERAL: Elderly male lying in bed. VITAL SIGNS: Blood pressure 146/76, heart rate 76, respiratory rate 20, temperature 98. HEENT: Normocephalic, atraumatic. Positive pallor. NECK: Supple, no JVD. LUNGS: Bilateral rhonchi, bilateral crackles, bilateral expiratory wheeze. CARDIAC: S1, S2. Regular rate and rhythm. No murmur, no rub. ABDOMEN: Obese, distended, soft, nontender. Bowel sounds present. EXTREMITIES: 1+ pitting edema. INTAKE AND OUTPUT: Not charted. LABORATORY DATA: WBC 13.5, hemoglobin 8, hematocrit 26, platelets 177. Sodium 136, potassium 5.5, chloride 95, CO2 24, BUN 90, creatinine 6.8, glucose 331, calcium 9.1, phosphorus 5.1, magnesium 2.5, albumin 3.2. Blood cultures, no growth. CURRENT MEDICATIONS: Mucomyst, aspirin, dobutamine at 2 mcg/kg per minute, DuoNeb, insulin, Imdur 30 b.i.d., insulin, Lopressor 25 b.i.d., meropenem 250 every 12 hours, Mucinex, Nephro-Jarret, Plavix, prednisone, Renagel, Xopenex. ASSESSMENT AND PLAN: 1. Shortness of breath, decompensated congestive heart failure, chronic obstructive pulmonary disease exacerbation, superimposed pneumonia. 2. End-stage renal disease. 3. Chronic obstructive pulmonary disease. 4. Coronary artery disease, valvular heart disease. 5. Plr-gahptcb-eeonfcgld diabetes mellitus. 6. Hypertension. 7. Anemia. 8. Secondary hyperparathyroidism. PLAN: 1. Continue dobutamine drip. 2. Try to increase ultrafiltration on dialysis. 3. Continue empiric antibiotics. 4. Continue respiratory therapy and treatments. 5. Blood pressure is fairly controlled at this time. 6. We will consider ultrafiltration again tomorrow. Hyun Galarza MD [facility] # [id number]
--- NOTE | 2017-10-22 15:39 | PN ---
DATE: 10/22/2017 PULMONARY PROGRESS NOTE REFERRING PHYSICIAN: Gustavo Garcia MD. SUBJECTIVE: He is on dialysis. Overnight was unremarkable. [place] better. Tolerated BiPAP well. Cough is better. No nausea. No vomiting, diarrhea. Has trace leg swelling. OBJECTIVE: GENERAL: In no acute distress. VITAL SIGNS: Temperature is 98, heart rate is 76, respiratory rate is 20, blood pressure 146/76, pulse ox 97% on nasal cannula. HEENT: Moist mucous membrane. Crowded airway. NECK: Supple. No JVD. LUNGS: Have a scattered rhonchi. Few crackles at the bases. HEART: S1 and S2. ABDOMEN: Soft, nontender. No organomegaly. EXTREMITIES: Does have trace edema. NEUROLOGICAL: Awake and alert. Follows simple command. LABORATORY DATA: Shows hemoglobin 8.3, hematocrit 26.3, WBC 13.5, platelet count is 177. Sodium 135, potassium 4.5, chloride 95, bicarbonate 24, BUN is 90, creatinine is 6.8, glucose is 331, phosphorus 5.1, magnesium 2.5, AST 31, ALT 39, alk phos is 72, albumin is 3.2. Microbiology: Blood cultures have been negative. MEDICATIONS: He is on Mucomyst 20% inhaled every 6 hours, aspirin 81 mg daily, dobutamine 2 mcg started, DuoNeb every 6 hours, Imdur ER 30 mg twice a day, Levemir 40 units subcu at bedtime, metoprolol tartrate 25 mg twice a day, meropenem is 250 mg every 12 hours, Mucinex LA 600 mg twice a day, Nephro vitamins daily, Plavix 75 mg daily, prednisone 20 mg daily, Renagel 800 mg three times a day, Xopenex 0.63 every 4 hours p.r.n.. IMPRESSION AND PLAN: Cardiopulmonary compromise with severe cardiomyopathy with systolic dysfunction. There is component of chronic lung disease, hypoventilation syndrome, renal failure, dialysis dependent, hypertension, diabetes. Did well overnight. He is on prednisone. Also, dobutamine was started. While on dialysis, blood pressure dropped down to 90s, could not take much fluid. Also, dobutamine increased to 4 mcg/kg/minute. He is tolerating well for now. Continue steroids. Gastric prophylaxis. We will see if he qualifies for Trilogy for noninvasive ventilation secondary to cardiopulmonary dysfunction. Thank you and we will follow with you. Kathrine Mckeon MD
[2017-10-22] MEDS ORDERED: Oxycodone/Acetaminophen 2.5/325 mg Tab PO STA (17:33)
--- NOTE | 2017-10-22 19:01 | CP.PCM.PN ---
Subjective - Date & Time of Evaluation Date of Evaluation: 10/22/17 Time of Evaluation: 10:00 - Subjective Subjective: Patient is comfortable in bed, did not feel he had fevers. Objective - Vital Signs/Intake and Output Vital Signs (last 24 hours): Temp Pulse Resp BP Pulse Ox 98 F 76 20 146/76 97 10/22/17 06:00 10/22/17 06:00 10/22/17 06:00 10/22/17 06:00 10/22/17 06:00 Intake and Output: 10/22/17 10/22/17 06:59 18:59 Intake Total 120 Balance 120 - Medications Medications: Current Medications Acetylcysteine (Acetylcysteine 20%) 4 ml IH [id number] [facility] Last Admin: 10/22/17 08:38 Dose: 4 ml Albuterol/Ipratropium (Duoneb 3 Mg/0.5 Mg (3 Ml) Ud) 3 ml IH [id number] [facility] Last Admin: 10/22/17 08:46 Dose: Not Given Aspirin (Aspirin Chewable) 81 mg PO [id number]@1000 [facility] Clopidogrel Bisulfate (Plavix) 75 mg PO DAILY [facility] Last Admin: 10/21/17 09:40 Dose: 75 mg Guaifenesin (Mucinex La) 600 mg PO BID [facility] Last Admin: 10/21/17 17:12 Dose: 600 mg Meropenem 250 mg/ Sodium (Chloride) 100 mls @ 100 mls/hr IVPB Q12H [facility] PRN Reason: Protocol Stop: 10/30/17 08:01 Last Admin: 10/22/17 08:36 Dose: 100 mls/hr Dobutamine HCl/Dextrose (Dobutamine/Dextrose 5% 500mg/250ml) 500 mg in 250 mls @ 4.393 mls/hr IV .Q24H [facility] PRN Reason: 2 MCG/KG/MIN Last Admin: 10/22/17 00:00 Dose: 4.393 mls/hr Insulin Detemir (Levemir) 40 unit SC HS [facility] Last Admin: 10/21/17 22:29 Dose: 40 unit Insulin Human Regular (Humulin R Low) 0 units SC ACHS [facility] PRN Reason: Protocol Last Admin: 10/22/17 08:05 Dose: 5 units Insulin Human Regular (Humulin R) 5 units SC Q12 [facility] Isosorbide Mononitrate (Imdur Er) 30 mg PO BID [facility] Last Admin: 10/21/17 17:12 Dose: 30 mg Levalbuterol HCl (Xopenex) 0.63 mg IH [id number] [facility] Last Admin: 10/22/17 08:38 Dose: 0.63 mg Metoprolol Tartrate (Lopressor) 25 mg PO BRKDIN [facility] Last Admin: 10/22/17 08:10 Dose: Not Given Prednisone (Prednisone Tab) 20 mg PO DAILY [facility] Sevelamer HCl (Renagel) 800 mg PO TID [facility] Last Admin: 10/21/17 17:12 Dose: 800 mg Vitamin B Complex/Vit C/Folic Acid (Nephro-Jarret) 1 tab PO DAILY [facility] Last Admin: 10/21/17 09:40 Dose: 1 tab - Labs Labs: 10/21/17 12:15 10/21/17 12:15 PT 11.6 SECONDS (9.4-12.5) 10/20/17 16:10 INR 1.02 (0.93-1.08) 10/20/17 16:10 APTT 25.0 Seconds (25.1-36.5) L 10/20/17 16:10 - Constitutional Appears: Chronically Ill - Head Exam Head Exam: NORMAL INSPECTION - Neck Exam Neck Exam: absent: Meningismus - Respiratory Exam Respiratory Exam: Decreased Breath Sounds - Cardiovascular Exam Cardiovascular Exam: +S1, +S2 - GI/Abdominal Exam GI & Abdominal Exam: Soft. absent: Tenderness Assessment and Plan - Assessment and Plan (Free Text) Plan: Assessment sepsis due to HCAP with possible gram positive cocci and/or gram negative bacilli on top of acute on chronic CHF with NSTEMI S/P Severe sepsis probably secondary to HCAPi, clinically improved ESRD on HD HTN DM CAD S/P CABG COPD significant smoking history Plan continue intermittent Vancomycin and Merrem to complete 4-7 days of therapy
[2017-10-22] MEDS: Insulin Detemir 100 units/ml Vial (Levemir) SC SCH (21:45)
[2017-10-23] MEDS: Acetylcysteine 20% Inhal Soln (4ml) IH SCH ×4 (01:59→19:47)
[2017-10-23] MEDS: Albuterol-Ipratrop 3 mg / 0.5 (3 ml) UD IH SCH ×4 (01:59→19:47)
[2017-10-23] MEDS: Levalbuterol 0.63 MG/3 ML Inhal Soln UD IH SCH ×5 (02:00→19:47)
[2017-10-23] MEDS ORDERED: Vancomycin 1gm in NS 250ml 1 GM/250 ML BAG IVPB STA (06:37)
[2017-10-23] MEDS: Insulin Reg-LOW-Coverage SC SCH ×4 (08:34→21:53)
[2017-10-23 09:35] LABS: BASO # 0.02 K/mm3 (0.0-2.0); BASO % 0.1 % (0.0-3.0); EOS # 0.2 (0.0-0.7); EOS % 1.1 % (1.5-5.0); GRAN # 13.23 (1.4-6.5); GRAN % 86.2 % (50.0-68.0); LYMPH # 0.8 (1.2-3.4); LYMPH % 5.2 % (22.0-35.0); MEAN CELL VOLUME 102.1 fl (80.0-105.0); MEAN CORPUSCULAR HEMOGLOBIN 31.1 pg (25.0-35.0); MEAN CORPUSCULAR HGB CONC 30.5 g/dl (31.0-37.0); MONO # 1.1 (0.1-0.6); MONO % 7.4 % (1.0-6.0); RBC 2.89 10^6/uL (3.5-6.1); RED CELL DISTRIBUTION WIDTH 16.1 % (11.5-14.5); WHITE BLOOD COUNT 15.4 10^3/ul (4.5-11.0)
[2017-10-23 09:51] LABS: ALB/GLOB RATIO 1.2 (1.1-1.8); ALBUMIN 3.4 g/dL (3.0-4.8); CALCIUM 9.3 mg/dL (8.4-10.5)
--- NOTE | 2017-10-23 11:39 | CP.PCM.PN ---
Subjective - Date & Time of Evaluation Date of Evaluation: 10/23/17 Time of Evaluation: 10:10 - Subjective Subjective: Patient is feeling better and breathing better, no fevers. Objective - Vital Signs/Intake and Output Vital Signs (last 24 hours): Temp Pulse Resp BP Pulse Ox 97.9 F 84 18 118/60 100 10/23/17 06:00 10/23/17 06:00 10/23/17 06:00 10/23/17 06:00 10/23/17 06:00 Intake and Output: 10/22/17 10/23/17 18:59 06:59 Intake Total 260 208 Balance 260 208 - Medications Medications: Current Medications Acetylcysteine (Acetylcysteine 20%) 4 ml IH [id number] [facility] Last Admin: 10/23/17 01:59 Dose: 4 ml Albuterol/Ipratropium (Duoneb 3 Mg/0.5 Mg (3 Ml) Ud) 3 ml IH [id number] [facility] Last Admin: 10/23/17 01:59 Dose: 3 ml Aspirin (Aspirin Chewable) 81 mg PO SuWeFrSa@1000 [facility] Last Admin: 10/22/17 17:19 Dose: 81 mg Clopidogrel Bisulfate (Plavix) 75 mg PO DAILY [facility] Last Admin: 10/22/17 09:20 Dose: 75 mg Guaifenesin (Mucinex La) 600 mg PO BID [facility] Last Admin: 10/22/17 17:19 Dose: 600 mg Meropenem 250 mg/ Sodium (Chloride) 100 mls @ 100 mls/hr IVPB Q12H [facility] PRN Reason: Protocol Stop: 10/30/17 08:01 Last Admin: 10/22/17 21:19 Dose: Not Given Dobutamine HCl/Dextrose (Dobutamine/Dextrose 5% 500mg/250ml) 500 mg in 250 mls @ 8.731 mls/hr IV .Q24H PRN; 4 MCG/KG/MIN PRN Reason: hypotension Vancomycin HCl (Vancomycin 1gm) 1 gm in 250 mls @ 167 mls/hr IVPB STAT STA PRN Reason: Protocol Stop: 10/23/17 08:06 Insulin Detemir (Levemir) 40 unit SC HS [facility] Last Admin: 10/22/17 21:45 Dose: 40 unit Insulin Human Regular (Humulin R Low) 0 units SC ACHS [facility] PRN Reason: Protocol Last Admin: 10/22/17 21:44 Dose: Not Given Insulin Human Regular (Humulin R) 5 units SC Q12 [facility] Last Admin: 10/22/17 21:45 Dose: 5 units Isosorbide Mononitrate (Imdur Er) 30 mg PO BID [facility] Last Admin: 10/22/17 17:19 Dose: 30 mg Levalbuterol HCl (Xopenex) 0.63 mg IH [id number] [facility] Last Admin: 10/23/17 06:37 Dose: Not Given Metoprolol Tartrate (Lopressor) 25 mg PO BRKDIN [facility] Last Admin: 10/22/17 17:19 Dose: 25 mg Prednisone (Prednisone Tab) 20 mg PO DAILY [facility] Last Admin: 10/22/17 09:20 Dose: 20 mg Sevelamer HCl (Renagel) 800 mg PO TID [facility] Last Admin: 10/22/17 17:19 Dose: 800 mg Vitamin B Complex/Vit C/Folic Acid (Nephro-Jarret) 1 tab PO DAILY [facility] Last Admin: 10/22/17 09:20 Dose: 1 tab - Labs Labs: 10/22/17 10:30 10/22/17 10:30 PT 11.6 SECONDS (9.4-12.5) 10/20/17 16:10 INR 1.02 (0.93-1.08) 10/20/17 16:10 APTT 25.0 Seconds (25.1-36.5) L 10/20/17 16:10 - Constitutional Appears: Chronically Ill - Head Exam Head Exam: NORMAL INSPECTION - ENT Exam ENT Exam: Mucous Membranes Moist - Neck Exam Neck Exam: absent: Meningismus - Respiratory Exam Respiratory Exam: Decreased Breath Sounds - Cardiovascular Exam Cardiovascular Exam: +S1, +S2 - GI/Abdominal Exam GI & Abdominal Exam: Soft. absent: Tenderness Assessment and Plan - Assessment and Plan (Free Text) Plan: Assessment sepsis due to HCAP on top of acute on chronic CHF with NSTEMI, clinically improving S/P Severe sepsis probably secondary to HCAPi, clinically improved ESRD on HD HTN DM CAD S/P CABG COPD significant smoking history Plan on intermittent Vancomycin and Merrem day 3 to complete 4-7 days of therapy - can be switched to PO Vantin 200 mg qHD x 3 doses and PO Doxycycline 100 mg PO BID for another 3-5 days to complete therapy when ready to be discharged
[2017-10-23] MEDS: guaiFENesin 600 mg ER Tab PO SCH ×2 (11:49→18:06)
[2017-10-23] MEDS: Insulin Regular 1 UNITS/0.01 ML ML SC SCH ×2 (11:49→21:53)
--- NOTE | 2017-10-23 11:58 | CON ---
DATE: 10/23/2017 CONSULTATION INDICATIONS: Shortness of breath, pneumonia, rule out sepsis, severe LV dysfunction. HISTORY OF PRESENT ILLNESS: This is an 81-year-old man, well known to us, admitted on 10/21/2017 after he developed shortness of breath following hemodialysis while he was on the [facility] Unit following he had admission for COPD with exacerbation. He was a code sepsis in the emergency room. He is currently on telemetry. His breathing has improved. He is on a dobutamine infusion. This morning, there was no chest pain or shortness of breath reported. There is no fever, chills, cough, sputum production, hemoptysis, abdominal pain, nausea, vomiting, diarrhea, constipation, melena, syncope, palpitations. He did have difficulty sleeping and utilized a CPAP mask. PAST MEDICAL HISTORY: His past medical history is extensive. He has chronic kidney disease and 3 times a week hemodialysis. He has severe COPD with recent exacerbation requiring hospitalization. He has coronary artery disease, status post remote coronary artery bypass surgery with known severe LV dysfunction with moderate aortic stenosis and mild aortic insufficiency. He also has severe pulmonary hypertension based on an echocardiogram in 05/2017. He is a former smoker with a history of hypertension, hyperlipidemia, dysphagia, a PFO seen on an echocardiogram and gallstones. He has possible pneumonia based on a recent chest x-ray. MEDICATIONS: At this time include Mucomyst, Aranesp, aspirin, dobutamine at 4 mcg/kg/minute, DuoNebs, Insulin, isosorbide, metoprolol, meropenem, Mucinex, vitamin B complex, Plavix, prednisone, Renagel, vancomycin, Xopenex. ALLERGIES: THERE ARE NO KNOWN MEDICATION ALLERGIES. SOCIAL HISTORY: He lives at home. He no longer smokes. He does not drink alcohol significantly. He is ambulatory, but very limited. FAMILY HISTORY: Noncontributory. REVIEW OF SYSTEMS: Ten-point review of systems is otherwise unremarkable except as noted above. PHYSICAL EXAMINATION: GENERAL: He is a well-developed elderly male, in no acute distress. VITAL SIGNS: Notable for blood pressure 118/60, afebrile, respirations 18-20, O2 sat 99-100% on BiPAP. He is in atrial fib, rate in the 90s to low 100s. HEENT: Reveals neck vein distention. No thyromegaly. No carotid bruits. Mucous membranes moist. Conjunctivae pink. NECK: Supple. LUNGS: Lung figueroa, scattered rhonchi. HEART: Examination of the heart reveals an irregular rhythm. There is a systolic murmur along the left sternal border. ABDOMEN: Soft. Bowel sounds present. No mass, organomegaly, tenderness, rebound or guarding. No CVA tenderness. No palpable abdominal aortic aneurysm. EXTREMITIES: Revealed trace to mild ankle edema. NEUROLOGICAL: Awake, alert. PSYCHIATRIC: Normal as to mood and affect. SKIN: Warm and dry. No rash or cellulitis. LABORATORY AND IMAGING: A chest x-ray on 10/20/2017 revealed multiple findings including mild chronic compensated pulmonary edema, CHF suspected, etc. EKG demonstrated atrial fibrillation versus atrial flutter, left bundle-branch block. Rhythm is new compared to a prior EKG. I will repeat his EKG today. White count 13,500, hemoglobin 8.3, hematocrit 26.3, platelet count 177,000. PT/INR unremarkable, PTT 25. Blood gases are noted. Electrolytes are noted. Initial creatinine 4.2, troponin 0.22, BNP 67,900, procalcitonin was elevated at 0.7. LFTs were unremarkable. Blood sugars are in the 100-200 range. Yesterday's blood sugars were in the 300-400 range. Yesterday, potassium 5.5, creatinine 6.8. Influenza was negative. Blood cultures are now growth at 48 hours. IMPRESSION: Anderson Pittman is an 81-year-old man with known severe left ventricular dysfunction, chronic obstructive pulmonary disease, possible pneumonia, pulmonary hypertension and irregular rhythm c/w atrial fibrillation or atrial flutter. He is currently on a dobutamine drip as well as aspirin, antibiotics, prednisone, Plavix, metoprolol, isosorbide. I reviewed his old record and echocardiogram from May. We will continue dobutamine for now. He is getting hemodialysis by Dr. Bailey and Dr. Galarza. He is followed by Dr. Mckeon and by Infectious Disease. We will monitor inputs and outputs. I will repeat his EKG today. I will check a TSH. He is getting bilevel positive airway pressure mask. Blood sugars are being monitored. I will review his old records. I will follow along with you and make additional recommendations based on his clinical course. Hoang Hannon MD [facility] # [id number] DAVID
--- NOTE | 2017-10-23 13:09 | PN ---
DATE: 10/23/2017 SUBJECTIVE: An 81-year-old white male who has a history of chronic respiratory failure secondary to severe COPD for many, many years. The patient has been in the hospital and has been treated with BiPAP. He is tolerating his BiPAP well. In discussion, the patient says he feels much better. He has much improved lung sounds on post BiPAP. He tolerates BiPAP well at night. He feels better during the day. He has less problems breathing. He does complain of symptoms parallel to breath stacking. The plan is to discontinue the use of the BiPAP as it has been proven insufficient and order noninvasive ventilation to target volume control and reduce the elevated pCO2 levels that the patient has been experiencing on BiPAP. Without this noninvasive ventilation, the patient might endure additional hospital admissions or even a life threatening event. Plan has been discussed with the patient to start him on noninvasive ventilation at home. Therefore, the patient will improve, not need repeat hospitalizations as he has in the past. The patient does have a history of end-stage renal disease, congestive heart failure, and severe COPD. The patient's physical examination shows increased breath sounds bilaterally, decreased rhonchi bilaterally, decreased wheezing. The patient is awake, alert, and oriented x3. He will continue to have renal dialysis today prior to being discharged home. We will follow as an outpatient to monitor his noninvasive ventilation for volume control and we will monitor his pCO2 levels at home. Gustavo Garcia MD
--- NOTE | 2017-10-23 14:32 | PN ---
DATE: 10/23/2017 SUBJECTIVE: The patient is seen lying in bed. He is awake, but lethargic. He appears to be in mild respiratory distress. PHYSICAL EXAMINATION VITAL SIGNS: Blood pressure 118/60, heart rate 84, respiratory rate 18, temperature 97.9. HEENT: Normocephalic, atraumatic, positive pallor. NECK: Supple, no JVD. LUNGS: Bilateral rhonchi, distant breath sounds, basal rales. CARDIAC: S1 and S2, regular rate and rhythm, no murmur, no rub. ABDOMEN: Obese, distended, soft, nontender, bowel sounds present. EXTREMITIES: 1+ pitting edema of the lower extremities. INTAKE AND OUTPUT: Not charted. LABORATORY DATA: WBC 15, hemoglobin 9, hematocrit 29.5, platelets 181. Sodium 142, potassium 4.2, chloride 97, CO2 of 31, BUN 47, creatinine 3.9, glucose 84, calcium 9.3, phosphorus 4.4, magnesium 2.4, albumin 3.4. Blood cultures no growth. CURRENT MEDICATIONS: List reviewed includes Mucomyst, aspirin, DuoNeb, Humulin insulin, Lopressor 25 b.i.d., meropenem 250 every 12 hours, Mucinex, Nephro-Jarret, Plavix, prednisone, Renagel, Xopenex. The patient is off the dobutamine. ASSESSMENT: 1. Decompensated congestive heart failure. 2. Chronic obstructive pulmonary disease exacerbation. 3. Hospital-acquired pneumonia. 4. End-stage renal disease. 5. Coronary artery disease. 6. Non-insulin dependant diabetes mellitus. 7. Anemia. PLAN: 1. Ultrafiltration today. 2. Continue antibiotics. 3. Continue insulin. 4. Continue phosphate binder. 5. Physical therapy. Hyun Galarza MD
[2017-10-23] MEDS: Multivitamin Vitamin B Complex (Nephro-Vite) Tab PO SCH (15:38)
--- NOTE | 2017-10-23 21:22 | PN ---
DATE: 10/23/2017 PULMONARY PROGRESS NOTE REFERRING PHYSICIAN: Gustavo Garcia MD SUBJECTIVE: He is lying in the bed, head at 45 degrees, getting ready to home. Dobutamine was discontinued this morning. The patient was seen by Cardiology. Trilogy noninvasive ventilation is delivered, sitting on the bedside. Still has some cough, but feels better. No hemoptysis. No hematemesis. No hematuria. No diarrhea. OBJECTIVE: GENERAL: In no acute distress. VITAL SIGNS: Temperature is 98, heart rate is 84, respiratory rate is 20, blood pressure 118/60, pulse ox 100% on BiPAP. HEENT: Moist mucous membrane. Crowded airway. NECK: Supple. No JVD. LUNGS: Crackles at the bases, scattered rhonchi. HEART: S1 and S2. ABDOMEN: Soft, nontender, no organomegaly. EXTREMITIES: Not much edema. NEUROLOGIC: Awake and alert. Follows simple commands. MEDICATIONS: He is on Mucomyst inhaled every 6 hours, aspirin 81 mg daily, DuoNeb every 6 hours, insulin coverage, Imdur 30 mg twice a day, Levemir 40 units subcu at bedtime, metoprolol tartrate 25 mg twice a day, meropenem 250 mg every 12 hours, Mucinex LA 600 mg twice a day, Nephro vitamin daily, Plavix 75 mg daily, prednisone 20 mg daily, Renagel 800 mg three times a day, and Xopenex inhaled every 4 hours. LABORATORY DATA: Shows hemoglobin 9, hematocrit 29.5, WBC 15.4, and platelet count is 181. Sodium 142, potassium 4.2, chloride 97, bicarbonate 31. BUN is 47, creatinine is 3.9. Glucose is 203. Phosphorus 4.4, magnesium 2.4. AST 31, ALT 49, alk phos is 68, albumin is 3.4. Microbiology: Blood cultures and sputum cultures, there is no growth. IMPRESSION AND PLAN: Cardiopulmonary compromise with severe cardiomyopathy, pulmonary hypertension, chronic obstructive lung disease, hypoventilation syndrome, renal failure, dialysis dependent, hypertension, diabetes. We will decrease prednisone to 10 mg taper off next 3 days or so. Keep head at 45 degrees. Aspiration precaution. May use noninvasive ventilation when sleeping. Supplemental oxygen while awake. Seen by Cardiology, Infectious Disease, and Nephrology. Overall, poor prognosis. Thank you and we will follow with you. Kathrine Mckeon MD [facility] # [id number]
[2017-10-23] MEDS: Insulin Detemir 100 units/ml Vial (Levemir) SC SCH (21:53)
--- NOTE | 2017-10-23 23:41 | CARD ---
APPROVED REPORT EKG Measurement Heart [id number] FL 158P [id number] <Conclusion> Atrial Flutter with variable AV conduction, PVCs vs aberrancy Left axis deviation Nonspecific intraventricular block T wave abnormality, consider lateral ischemia Abnormal ECG
[2017-10-24] MEDS: Albuterol-Ipratrop 3 mg / 0.5 (3 ml) UD IH SCH ×4 (03:00→20:30)
[2017-10-24] MEDS: Acetylcysteine 20% Inhal Soln (4ml) IH SCH ×4 (03:00→20:30)
[2017-10-24] MEDS: Levalbuterol 0.63 MG/3 ML Inhal Soln UD IH SCH ×4 (07:26→20:30)
[2017-10-24 07:57] LABS: CALCIUM 9.2 mg/dL (8.4-10.5)
[2017-10-24] MEDS: Insulin Reg-LOW-Coverage SC SCH ×4 (08:07→22:38)
[2017-10-24] MEDS ORDERED: Insulin Detemir 100 units/ml Vial (Levemir) SC SCH (09:17)
[2017-10-24] MEDS: guaiFENesin 600 mg ER Tab PO SCH ×2 (09:20→17:53)
[2017-10-24] MEDS: Multivitamin Vitamin B Complex (Nephro-Vite) Tab PO SCH (09:20)
--- NOTE | 2017-10-24 09:20 | CP.PCM.PN ---
Subjective - Date & Time of Evaluation Date of Evaluation: 10/24/17 Time of Evaluation: 07:00 - Subjective Subjective: Stable on 2R. He feels better. No CP. Still dyspnea but better. V/S noted. A. Flutter, VR 70 - 120s PE: Lungs: rhonchi Cor.: irreg. S1S2, KIARRA Abd.: soft Ext.: + mild edema Neuro.; alert I/O= 420/300 recorded Labs noted: K+= 4.7 BC X2 NG at 3 days ECG 10/23: A. Flutter, LBBB Objective - Vital Signs/Intake and Output Vital Signs (last 24 hours): Temp Pulse Resp BP Pulse Ox 98.2 F 120 H 18 129/65 96 10/24/17 06:00 10/24/17 08:26 10/24/17 06:00 10/24/17 08:26 10/24/17 06:00 Intake and Output: 10/24/17 10/24/17 06:59 18:59 Intake Total 120 Balance 120 - Medications Medications: Current Medications Acetylcysteine (Acetylcysteine 20%) 4 ml IH [id number] [facility] Last Admin: 10/24/17 07:26 Dose: 4 ml Albuterol/Ipratropium (Duoneb 3 Mg/0.5 Mg (3 Ml) Ud) 3 ml IH [id number] [facility] Last Admin: 10/24/17 07:26 Dose: 3 ml Aspirin (Aspirin Chewable) 81 mg PO SuWeFrSa@1000 [facility] Last Admin: 10/22/17 17:19 Dose: 81 mg Clopidogrel Bisulfate (Plavix) 75 mg PO DAILY [facility] Last Admin: 10/23/17 15:37 Dose: 75 mg Guaifenesin (Mucinex La) 600 mg PO BID [facility] Last Admin: 10/23/17 18:06 Dose: 600 mg Meropenem 250 mg/ Sodium (Chloride) 100 mls @ 100 mls/hr IVPB Q12H [facility] PRN Reason: Protocol Stop: 10/30/17 08:01 Last Admin: 10/24/17 09:04 Dose: 100 mls/hr Insulin Detemir (Levemir) 40 unit SC HS [facility] Last Admin: 10/23/17 21:53 Dose: 40 unit Insulin Human Regular (Humulin R Low) 0 units SC ACHS [facility] PRN Reason: Protocol Last Admin: 10/24/17 08:07 Dose: Not Given Insulin Human Regular (Humulin R) 5 units SC Q12 [facility] Last Admin: 10/23/17 21:53 Dose: 5 units Isosorbide Mononitrate (Imdur Er) 30 mg PO BID [facility] Last Admin: 10/23/17 18:06 Dose: 30 mg Levalbuterol HCl (Xopenex) 0.63 mg IH [id number] [facility] Last Admin: 10/24/17 07:26 Dose: Not Given Metoprolol Tartrate (Lopressor) 25 mg PO BRKDIN [facility] Last Admin: 10/24/17 08:26 Dose: 25 mg Prednisone (Prednisone Tab) 10 mg PO DAILY [facility] Sevelamer HCl (Renagel) 800 mg PO TID [facility] Last Admin: 10/23/17 15:38 Dose: 800 mg Vitamin B Complex/Vit C/Folic Acid (Nephro-Jarret) 1 tab PO DAILY [facility] Last Admin: 10/23/17 15:38 Dose: 1 tab - Labs Labs: 10/23/17 09:20 10/24/17 06:00 PT 11.6 SECONDS (9.4-12.5) 10/20/17 16:10 INR 1.02 (0.93-1.08) 10/20/17 16:10 APTT 25.0 Seconds (25.1-36.5) L 10/20/17 16:10 Assessment and Plan - Assessment and Plan (Free Text) Assessment: Dyspnea/Cough/Pneumonia Recent COPD exacerbation Severe COPD CAD/Remote CABG with severe LVD CKD/HD Moderate , mild AI Severe PH HBP HLD PFO Gall Stones Plan: Increase metoprolol to 25 TID and titrate to control A. Flutter rate Consider chronic A/C for A. Flutter AB as per ID HD/UF as per Renal OOB as maría Monitor labs, I/O, sats., etc. Will follow.
--- NOTE | 2017-10-24 12:05 | CP.PCM.PN ---
Subjective - Date & Time of Evaluation Date of Evaluation: 10/24/17 Time of Evaluation: 10:20 - Subjective Subjective: Noted events overnight - patient needed BIPAP overnight for SOB at rest. No fevers. Currently comfortable in bed. Objective - Vital Signs/Intake and Output Vital Signs (last 24 hours): Temp Pulse Resp BP Pulse Ox 98.2 F 120 H 18 129/65 96 10/24/17 06:00 10/24/17 08:26 10/24/17 06:00 10/24/17 08:26 10/24/17 06:00 Intake and Output: 10/24/17 10/24/17 06:59 18:59 Intake Total 120 Balance 120 - Medications Medications: Current Medications Acetylcysteine (Acetylcysteine 20%) 4 ml IH [id number] [facility] Last Admin: 10/24/17 07:26 Dose: 4 ml Albuterol/Ipratropium (Duoneb 3 Mg/0.5 Mg (3 Ml) Ud) 3 ml IH [id number] [facility] Last Admin: 10/24/17 07:26 Dose: 3 ml Aspirin (Aspirin Chewable) 81 mg PO SuWeFrSa@1000 [facility] Last Admin: 10/24/17 09:20 Dose: 81 mg Clopidogrel Bisulfate (Plavix) 75 mg PO DAILY [facility] Last Admin: 10/24/17 09:20 Dose: 75 mg Guaifenesin (Mucinex La) 600 mg PO BID [facility] Last Admin: 10/24/17 09:20 Dose: 600 mg Meropenem 250 mg/ Sodium (Chloride) 100 mls @ 100 mls/hr IVPB Q12H [facility] PRN Reason: Protocol Stop: 10/30/17 08:01 Last Admin: 10/24/17 09:04 Dose: 100 mls/hr Insulin Detemir (Levemir) 20 unit SC HS [facility] Insulin Human Regular (Humulin R Low) 0 units SC ACHS [facility] PRN Reason: Protocol Isosorbide Mononitrate (Imdur Er) 30 mg PO BID [facility] Last Admin: 10/24/17 09:20 Dose: 30 mg Levalbuterol HCl (Xopenex) 0.63 mg IH [id number] [facility] Last Admin: 10/24/17 07:26 Dose: Not Given Metoprolol Tartrate (Lopressor) 25 mg PO TID [facility] Last Admin: 10/24/17 09:19 Dose: Not Given Prednisone (Prednisone Tab) 10 mg PO DAILY [facility] Last Admin: 10/24/17 09:20 Dose: 10 mg Sevelamer HCl (Renagel) 800 mg PO TID [facility] Last Admin: 10/24/17 09:20 Dose: 800 mg Vitamin B Complex/Vit C/Folic Acid (Nephro-Jarret) 1 tab PO DAILY [facility] Last Admin: 10/24/17 09:20 Dose: 1 tab - Labs Labs: 10/23/17 09:20 10/24/17 06:00 PT 11.6 SECONDS (9.4-12.5) 10/20/17 16:10 INR 1.02 (0.93-1.08) 10/20/17 16:10 APTT 25.0 Seconds (25.1-36.5) L 10/20/17 16:10 - Constitutional Appears: Chronically Ill - Head Exam Head Exam: NORMAL INSPECTION - Neck Exam Neck Exam: absent: Meningismus - Respiratory Exam Respiratory Exam: Decreased Breath Sounds - Cardiovascular Exam Cardiovascular Exam: +S1, +S2 - GI/Abdominal Exam GI & Abdominal Exam: Soft. absent: Tenderness Assessment and Plan - Assessment and Plan (Free Text) Plan: Assessment sepsis due to HCAP on top of acute on chronic CHF with NSTEMI, clinically improving S/P Severe sepsis probably secondary to HCAPi, clinically improved ESRD on HD HTN DM CAD S/P CABG COPD significant smoking history Plan on intermittent Vancomycin and Merrem day 4 to complete 4-7 days of therapy - can be switched to PO Vantin 200 mg qHD x 2 doses and PO Doxycycline 100 mg PO BID for another 3-5 days to complete therapy when ready to be discharged
--- NOTE | 2017-10-24 14:33 | PN ---
DATE: 10/24/2017 SUBJECTIVE: An 81-year-old white male who initially was scheduled to be discharged home last night; however, after dialysis became short of breath and anxious and his discharge was held. The patient is going to be redialyzed today. He this morning had a good night sleep. He has decreased breath sounds, but decreased rhonchi bilaterally. He is slightly tachycardic today and diaphoretic, but otherwise stable. PHYSICAL EXAMINATION: VITAL SIGNS: His temperature is 98.2, his heart rate is 120, his blood pressure is 129/65. GENERAL: Patient is going for an acute dialysis today, to be followed by possible discharge if he is stable afterwards. CHEST: Shows some rhonchi at both bases, but decreased from previous. HEART: Reveals sinus tachycardia. He is mildly diaphoretic today. EXTREMITIES: Without cyanosis, clubbing, edema. ABDOMEN: Soft. Patient will have acute EKG and acute done and we will follow clinically. Gustavo Garcia MD
[2017-10-24 15:16] LABS: BASO # 0.02 K/mm3 (0.0-2.0); BASO % 0.1 % (0.0-3.0); EOS # 0.1 (0.0-0.7); EOS % 0.9 % (1.5-5.0); GRAN % 90.2 % (50.0-68.0); LYMPH # 0.8 (1.2-3.4); LYMPH % 5.2 % (22.0-35.0); MEAN CELL VOLUME 101.7 fl (80.0-105.0); MEAN CORPUSCULAR HEMOGLOBIN 31.3 pg (25.0-35.0); MEAN CORPUSCULAR HGB CONC 30.7 g/dl (31.0-37.0); MEAN PLATELET VOLUME 9.4 fl (7.0-11.0); MONO # 0.6 (0.1-0.6); MONO % 3.6 % (1.0-6.0); PLATELET COUNT 190 10^3/uL (120.0-450.0); RBC 2.88 10^6/uL (3.5-6.1); RED CELL DISTRIBUTION WIDTH 16.3 % (11.5-14.5); WHITE BLOOD COUNT 15.1 10^3/ul (4.5-11.0)
[2017-10-24 15:39] LABS: BAND 2 % (0-2); LYMPHOCYTE 6 % (22.0-35.0); METAMYELOCYTE 2 %; MONOCYTE 5 % (1.0-6.0); NEUTROPHIL 85 % (50.0-70.0)
[2017-10-24 15:40] LABS: PLATELET ESTIMATE NORMAL (NORMAL)
--- NOTE | 2017-10-24 18:57 | CARD ---
APPROVED REPORT EKG Measurement Heart [id number] <Conclusion> Atrial Flutter with 3:1 AV conduction Left axis deviation Nonspecific intraventricular block T wave abnormality, consider lateral ischemia Abnormal ECG
--- NOTE | 2017-10-24 21:53 | PN ---
DATE: 10/24/2017 SUBJECTIVE: The patient is seen lying in bed. He is awake, he is alert. He reports feeling somewhat better. He had ultrafiltration done yesterday. He still has a cough. PHYSICAL EXAMINATION: GENERAL: Elderly male sitting in bed. VITAL SIGNS: Blood pressure 140/59, heart rate 80, respiratory rate 18, temperature 98. HEENT: Normocephalic, atraumatic, positive pallor. NECK: Supple, no JVD. LUNGS: Bilateral equal air entry, bilateral equal expansion, basilar rales. CARDIAC: S1 and S2, regular rate and rhythm, no murmur, no rub. ABDOMEN: Obese, distended, soft, nontender, bowel sounds present. EXTREMITIES: No lower extremity edema. LABORATORY DATA: WBC 15, hemoglobin 9, hematocrit 29, platelets 190. Sodium 139, potassium 4.7, chloride 96, CO2 of 29, BUN 67, creatinine 5.2, glucose 44, calcium 9.2. Troponin 0.13. Phosphorus 4.9, magnesium 2.4. Sputum culture, yeast. CURRENT MEDICATIONS: Mucomyst, aspirin, DuoNeb, insulin, Imdur 30 b.i.d., Levemir, Lopressor 25 b.i.d., meropenem 250 every 12 hours, Mucinex, Plavix, prednisone, Renagel, and Xopenex. ASSESSMENT: 1. Healthcare-associated pneumonia. 2. Chronic obstructive pulmonary disease exacerbation. 3. Decompensated congestive heart failure. 4. Non-ST elevation myocardial infarction. 5. Ita-rcelrnz-nnafvbibb diabetes mellitus. 6. End-stage renal disease. 7. Coronary artery disease. 8. Anemia of chronic kidney disease. PLAN: 1. Continue antibiotics as per ID recommendations. 2. Continue steroids, taper as feasible. 3. Monitor fingersticks and continue insulin coverage. 4. Dialysis today. Hyun Galarza MD
--- NOTE | 2017-10-24 22:18 | PN ---
DATE: 10/24/2017 PULMONARY PROGRESS NOTE REFERRING PHYSICIAN: Gustavo Garcia MD SUBJECTIVE: He is lying in the bed, head at 45 degree, feels better, communicative last night. Tolerated non-invasive ventilation well last night. Has some cough. No sputum production. No nausea. No vomiting. No diarrhea. Trace leg swelling. Scheduled for dialysis this afternoon. OBJECTIVE: GENERAL: In no acute distress. VITAL SIGNS: Temperature is 98, heart rate 80, respiratory rate is 20, blood pressure 114/59, pulse ox 99% on BiPAP this morning. HEENT: Moist mucous membrane. Crowded airway. Mallampati score is 4. NECK: Supple. No JVD. LUNGS: Has a scattered rhonchi. Few crackles at the bases. HEART: S1 and S2. ABDOMEN: Soft, nontender. No organomegaly EXTREMITIES: Trace edema. NEUROLOGIC: Awake, alert, and follows simple commands. MEDICATIONS: He is on Mucomyst 20% inhaled every 6 hours, aspirin 81 mg, also on DuoNeb every 6 hours, insulin coverage, Imdur 30 mg twice a day, Levemir 20 units subcu at bedtime, metoprolol tartrate 25 mg three times a day, meropenem 250 mg twice a day, Mucinex LA 600 mg twice a day, Nephro vitamins daily, Plavix 75 mg daily, prednisone 10 mg daily, Renagel 800 mg three times a day, Xopenex inhaled every 4 hours. LABORATORY DATA: Shows hemoglobin 9, hematocrit 29.3, WBC 15,000, platelet is 190. Sodium 139, potassium 4.7, chloride 96, bicarbonate 29. BUN 67, creatinine is 5.2, glucose is 94, phosphorus 4.9, magnesium 2.4. Troponin was 0.13. TSH 0.89. Microbiology, sputum culture had some yeast; otherwise, unremarkable. IMPRESSION AND PLAN: Cardiomyopathy, with pulmonary hypertension, chronic lung disease; renal failure, dialysis-dependent; hypertension, diabetes. Supposed to go home yesterday with non-invasive ventilation; apparently, the patient got short of breath, was placed on non-invasive ventilation overnight and done well. This afternoon, he will have a dialysis. Needs reevaluation for possible discharge if does well. I was told by the staff that the family is already trained for non-invasive ventilation. Overall, poor prognosis. Continue bronchodilator, taper off steroids, nebulizer treatment. Need to limit fluid intake to 1 liter or so. Thank you and we will follow with you. Kathrine Mckeon MD
[2017-10-25] MEDS: Levalbuterol 0.63 MG/3 ML Inhal Soln UD IH SCH ×7 (00:05→23:11)
[2017-10-25] MEDS: Acetylcysteine 20% Inhal Soln (4ml) IH SCH ×4 (03:30→19:52)
[2017-10-25] MEDS: Albuterol-Ipratrop 3 mg / 0.5 (3 ml) UD IH SCH ×4 (03:30→19:52)
[2017-10-25] MEDS ORDERED: Dextrose 50% SYRINGE Inj (50 ml) IVP ONE ×2 (08:03→08:16)
[2017-10-25] MEDS ORDERED: Dextrose 50% SYRINGE Inj (50 ml) ONE (08:06)
[2017-10-25] MEDS ORDERED: Insulin Detemir 100 units/ml Vial (Levemir) SC SCH (08:11)
[2017-10-25] MEDS: Insulin Reg-LOW-Coverage SC SCH ×4 (08:17→23:06)
[2017-10-25] MEDS: Multivitamin Vitamin B Complex (Nephro-Vite) Tab PO SCH ×2 (10:29→11:51)
[2017-10-25] MEDS: guaiFENesin 600 mg ER Tab PO SCH ×3 (10:29→17:51)
[2017-10-25] MEDS: Cefpodoxime (Vantin) 100 mg Tab PO SCH ×2 (10:29→11:52)
--- NOTE | 2017-10-25 11:00 | PN ---
DATE: 10/25/2017 The patient, Anderson Pittman, 81-year-old white male with end-stage renal disease, congestive heart failure, COPD. The patient had dialysis yesterday, was unable to be discharged home. He did have shortness of breath last night. The patient was kept overnight. This morning, the patient had a difficult night, did not wear his CPAP all night. He was found diaphoretic this morning with a blood sugar less than 40. He was given half ampule of D50. The patient is awake, easily arousable with CPAP this morning; however, not consistently wearing the CPAP. Chest shows rhonchi at both bases. The patient is afebrile. Vital signs are stable. Plan is to lower his insulin, increase his diet. Continue to address his COPD with BiPAP and dialyze as needed and reassess the patient in 24 hours for possible discharge. Gustavo Garcia MD
--- NOTE | 2017-10-25 11:48 | PN ---
DATE: 10/25/2017 SUBJECTIVE: The patient is in bed, in no acute distress. Nontoxic. No fevers and no chills. PHYSICAL EXAMINATION: VITAL SIGNS: Temperature is 98, blood pressure is 150/70, respiratory rate of 21, heart rate of 93. HEENT: Examination of HEENT is unremarkable. NECK: Supple. LUNGS: Have decreased breath sounds. HEART: Normal S1, S2. ABDOMEN: Soft, nontender. No rebound or guarding. No masses. LABORATORY DATA: Laboratory examination reveals the patient to have a white count of 15,100, hemoglobin of 9, platelets of 190. Creatinine is 5.2. Serology is negative. Microbiology reveals yeast in the sputum. The blood cultures are negative. Review of orders reveals the patient to be on meropenem and prednisone. ASSESSMENT AND PLAN: An 81-year-old male, seen earlier this morning in 275, bed 1 with sepsis due to healthcare-associated pneumonia on top of acute on chronic congestive heart failure with [id number] myocardial infarction and improving clinically. The patient is status post severe sepsis, probably to healthcare-associated pneumonia; end-stage renal disease, on hemodialysis; hypertension; diabetes; on vancomycin intermittently and meropenem day #5. The patient appears to be weak and the patient did have a mildly elevated procalcitonin of 0.70; however, the creatinine is 5.2. We will discontinue the meropenem and switch to p.o. doxycycline to complete therapy and n.p.o. Leland Tao MD
--- NOTE | 2017-10-25 14:52 | PN ---
DATE: 10/25/2017 SUBJECTIVE: The patient is seen lying in bed on Telemetry. He currently has a BiPAP mask in place. He apparently refused this last evening and did not sleep well. He is somewhat somnolent today, but arousable. CURRENT MEDICATIONS: Include Mucomyst, aspirin, doxycycline, DuoNeb inhaler, Imdur 30 mg b.i.d., Levemir insulin, metoprolol 25 mg b.i.d., Mucinex, Plavix 75 mg daily, prednisone 10 mg daily, Renagel, Vantin and Xopenex. OBJECTIVE: GENERAL: He is a chronically ill-appearing elderly man. VITAL SIGNS: His blood pressure is 150/76 with a pulse of 100, in atrial flutter. He has had intermittent slowing of his rate into the 50s at times. Beta-enrique therapy was withheld. HEENT: BiPAP mask is in place. CHEST: Bilateral coarse rhonchi and crackles on the left side. HEART: PMI displaced laterally with a systolic murmur noted in the lower left sternal border. ABDOMEN: Soft, nontender. Normoactive bowel sounds. EXTREMITIES: Chronic stasis changes with trace edema. DIAGNOSTIC DATA: Blood work from this morning is pending. IMPRESSION: 1. Severe chronic obstructive pulmonary disease with recent exacerbation. 2. Apparent pneumonia. 3. Coronary artery disease, status post remote bypass surgery. 4. Severe left ventricular systolic dysfunction. 5. Moderate aortic stenosis. 6. Severe pulmonary hypertension. 7. Chronic renal insufficiency, requiring hemodialysis. RECOMMENDATIONS: His current medications will be continued for now; however, his beta-enrique dose will be reduced to a b.i.d. dosing unless recurrent tachycardia ensues. Chronic anticoagulation therapy should be considered, given his atrial dysrhythmias, but obviously his risk of falls and self injury is higher than average. His overall prognosis remains poor. We will continue to follow and make further recommendations as appropriate. Trell Roberts MD
--- NOTE | 2017-10-25 22:12 | PN ---
DATE: 10/25/2017 PULMONARY PROGRESS NOTE REFERRING PHYSICIAN: Gustavo Garcia MD SUBJECTIVE: He is lying in the bed on non-invasive ventilation. Apparently patient refused to use BiPAP/non-invasive ventilation overnight. This morning, he was short of breath BiPAP re-placed on him, it is already there for almost [address] Garcia earlier today. Had some cough and sputum. No nausea, no vomiting, no diarrhea. No leg pain or leg swelling. OBJECTIVE: GENERAL: In no acute distress. VITAL SIGNS: Temperature is 98, heart rate 84, respiratory rate is 18, blood pressure 101/84, pulse ox 100% on BiPAP. HEENT: Moist mucous membrane. Crowded airway. NECK: Supple. No JVD. LUNGS: Has a scattered rhonchi. Fair airflow with BiPAP. HEART: S1 and S2. ABDOMEN: Soft, nontender. No organomegaly. EXTREMITIES: There is not much edema. NEUROLOGIC: Sleepy, arousable. Follows simple command. MEDICATIONS: He is on Mucomyst 20% 4 mL every 6 hours, aspirin 81 mg daily, also on doxycycline 100 mg twice a day, DuoNeb every 6 hours round the clock, insulin coverage, Imdur ER 30 mg twice a day, Levemir 50 units subcu at bedtime, metoprolol tartrate 25 mg twice a day, Mucinex LA 600 mg twice a day, multivitamins daily, Plavix 75 mg daily, prednisone 10 mg daily, Renagel 800 mg three times a day, Vantin 100 mg daily, Xopenex inhaled every 4 hours. LABORATORY DATA: Reviewed. Blood sugar this morning was 184, blood culture negative, sputum culture has some yeast. IMPRESSION AND PLAN: Cardiomyopathy with pulmonary hypertension, chronic obstructive lung disease, renal failure, dialysis dependent, hypertension, diabetes, respiratory failure requiring non-invasive ventilation. Pulmonary point of view, doing okay. Issue is here with cardiomyopathy with renal failure; as he builds up the fluid, unable to keep up with ventilation, and on top of it, he is not very complaint with non-invasive ventilation; last night, he did not use it, but this morning, he is on it and feeling very well and pulse ox is 100%. We will continue to limit p.o. fluid intake, continue aggressive dialysis, bronchodilator. Another solution is place him on dobutamine small dose or Primacor that may continue help us to avoid pulmonary edema. Thank you and we will follow with you. Kathrine Mckeon MD
[2017-10-26] MEDS: Albuterol-Ipratrop 3 mg / 0.5 (3 ml) UD IH SCH ×2 (04:36→08:30)
[2017-10-26] MEDS: Levalbuterol 0.63 MG/3 ML Inhal Soln UD IH SCH ×2 (04:36→08:32)
[2017-10-26] MEDS: Acetylcysteine 20% Inhal Soln (4ml) IH SCH ×2 (04:36→08:30)
[2017-10-26 08:06] VITALS: O2SAT 96
[2017-10-26] MEDS: Insulin Reg-LOW-Coverage SC SCH (08:21)
[2017-10-26] MEDS: Cefpodoxime (Vantin) 100 mg Tab PO SCH (09:01)
[2017-10-26] MEDS: Multivitamin Vitamin B Complex (Nephro-Vite) Tab PO SCH (09:02)
[2017-10-26] MEDS: guaiFENesin 600 mg ER Tab PO SCH (09:03)
--- NOTE | 2017-10-26 11:28 | PN ---
DATE: 10/26/2017 SUBJECTIVE: An 81-year-old white male admitted to the hospital with exacerbation of COPD; insulin-dependent diabetes mellitus; end-stage renal disease, on hemodialysis and CAD. The patient has been stable for the last 24 to 48 hours. He is status post hypoglycemic episode. His insulin levels have been decreased. The patient is tolerating BiPAP, his levels have improved. PHYSICAL EXAMINATION: GENERAL: The patient's color is good. VITAL SIGNS: He is afebrile. Vital signs are stable. CHEST: Shows some chronic rhonchi, but no acute shortness of breath. EXTREMITIES: Without cyanosis, clubbing or edema. PLAN: The patient will be discharged home most likely today as long as he is stable and he will follow up an outpatient. Continue outpatient hemodialysis and continue BiPAP at home. Gustavo Garcia MD
--- NOTE | 2017-10-26 11:30 | PN ---
DATE: 10/26/2017 SUBJECTIVE: The patient is in bed, in no acute distress, nontoxic. PHYSICAL EXAMINATION: VITAL SIGNS: On exam, temperature is 98, blood pressure is 118/50, respiratory rate of 20, heart rate of 84. HEENT: Examination of HEENT is unremarkable. NECK: Supple. LUNGS: Have decreased breath sounds. HEART: Normal S1, S2. ABDOMEN: Soft, nontender. No rebound or guarding. No masses. LABORATORY DATA: Laboratory examination reveals a white count of 15,100. Creatinine is 5.2. Serology is negative. Microbiology is yeast in the sputum. Blood cultures are negative. The patient is on doxycycline p.o. and prednisone and p.o. cefpodoxime. ASSESSMENT AND PLAN: An 81-year-old male seen earlier today in , bed 1 with sepsis, healthcare-associated pneumonia on top of acute on chronic congestive heart failure and [id number] myocardial infarction. The patient is clinically improved with sepsis with probably healthcare-associated pneumonia, end-stage renal disease, on hemodialysis, hypertension, diabetes. He had received vancomycin and meropenem, 5 days. Currently on p.o. doxycycline and p.o. cefpodoxime to complete 5 days. Leland Tao MD
--- NOTE | 2017-10-26 12:51 | PN ---
DATE: 10/26/2017 SUBJECTIVE: The patient is seen lying in bed. He is sleeping comfortably. He appears to be in mild respiratory distress. He is on oxygen. He reports that he is going home today. PHYSICAL EXAMINATION: GENERAL: Elderly male, lying in bed. VITAL SIGNS: Blood pressure 137/68, heart rate 98, respiratory rate 18-20, temperature 98. HEENT: Normocephalic, atraumatic, positive pallor. NECK: Supple, no JVD. LUNGS: Bilateral equal air entry, bilateral equal expansion, no rales appreciated anteriorly. CARDIAC: S1 and S2, regular rate and rhythm, positive murmur, no rub. ABDOMEN: Obese, distended, soft, nontender, bowel sounds present. EXTREMITIES: No lower extremity edema. INTAKE AND OUTPUT: Not charted. LABORATORY DATA: No new labs. CURRENT MEDICATIONS: Mucomyst, aspirin, doxycycline 100 every 12, DuoNeb, insulin, Imdur 30 b.i.d., Levemir, Lopressor 25 b.i.d., Plavix 75, prednisone 10, Renagel 800, Vantin 100, Xopenex. ASSESSMENT: 1. Coronary artery disease, congestive heart failure, cardiomyopathy. 2. Healthcare-associated pneumonia. 3. Severe pulmonary hypertension. 4. Olm-jbceyku-wxomyjuux diabetes mellitus. 5. Hypertension. 6. End-stage renal disease. 7. Anemia of chronic kidney disease. PLAN: 1. Will likely require 4 times a week dialysis going forward. 2. Strict fluid restriction. 3. Continue meds as per Cardiology recommendations. 4. Next dialysis tomorrow. Hyun Galarza MD
[2017-10-26 13:38] VITALS: BP 121/57; PULSE 72; RESP 18; TEMP 98
--- NOTE | 2017-10-26 15:33 | PN ---
DATE: 10/26/2017 SUBJECTIVE: The patient is seen lying in bed on telemetry. He feels more comfortable. He is no longer on BiPAP. His dyspnea has improved. CURRENT MEDICATIONS: Remain Mucomyst, aspirin, doxycycline, DuoNeb inhaler, insulin coverage, Imdur 30 mg b.i.d., Levemir insulin, metoprolol 25 mg b.i.d., Mucinex, Plavix 75 mg daily, prednisone 10 mg daily, Renagel, Vantin, and Xopenex. PHYSICAL EXAMINATION: GENERAL: He is an elderly man who appears comfortable at rest. VITAL SIGNS: Blood pressure is 136/68 with a pulse of 80-100, in atrial flutter; respirations are 16. He is afebrile. HEENT: No JVD. CHEST: Diminished breath sounds at the bases with bilateral scattered rhonchi. HEART: PMI displaced laterally with systolic murmur at the left sternal border. ABDOMEN: Soft with normoactive bowel sounds. EXTREMITIES: Chronic stasis changes with trace edema. DIAGNOSTIC DATA: Blood cultures are negative. Morning blood work pending. IMPRESSION: 1. Chronic obstructive pulmonary disease exacerbation, clinically improved. 2. Chronic renal failure, maintained on hemodialysis. 3. Coronary artery disease, clinically stable. 4. Severe left ventricular systolic dysfunction. 5. Moderate aortic stenosis. 6. Severe pulmonary hypertension. RECOMMENDATIONS: His current medications will continue for now. Clinically contraindicated chronic anticoagulation should be considered given his persistent atrial flutter and CHADS score. We will continue to follow and make further recommendations as needed. Trell Roberts MD
--- NOTE | 2017-10-27 23:31 | DS ---
Discharged home on 10/26/2017. HISTORY OF PRESENT ILLNESS: The patient is an 81-year-old white male, admitted with exacerbation of COPD; end-stage renal disease, on hemodialysis; hypertension; CAD; insulin-dependent diabetes mellitus. The patient was admitted from dialysis with severe shortness of breath, exacerbation of COPD, possible new pneumonia. The patient was treated for pneumonia, exacerbation of COPD, bronchodilators and also for hypertension and renal disease. The patient also has episodes during the hospital of hypoglycemia. His basal insulin requirements were decreased and the patient was discharged home in improved condition after completing a course of antibiotics and bronchodilators and steroids. The patient will be followed as an outpatient. FINAL DISCHARGE DIAGNOSES: Exacerbation of chronic obstructive pulmonary disease; pneumonia; end-stage renal disease on hemodialysis; hypoglycemia; insulin-dependent diabetes mellitus and coronary artery disease. Gustavo Garcia MD
== END 2017-10-26 14:14 | disposition home or self-care (01) | DRG 871 ==
LOC: ED 15:52 → ERH 18:07 → 2RSO 20:55
PROVIDERS: ADMIT Internal Medicine; ATTEND Internal Medicine
PROC: 5A1D70Z Performance of Urinary Filtration, Intermittent, Less than 6 Hours Per Day (ICD-10-PCS; principal; 2017-10-22)
PROC: 5A1D70Z Performance of Urinary Filtration, Intermittent, Less than 6 Hours Per Day (ICD-10-PCS; 2017-10-23)
PROC: 5A1D70Z Performance of Urinary Filtration, Intermittent, Less than 6 Hours Per Day (ICD-10-PCS; 2017-10-24)
DX: A41.9 Sepsis, unspecified organism (principal); J18.9 Pneumonia, unspecified organism; I50.43 Acute on chronic combined systolic (congestive) and diastolic (congestive) heart failure; N18.6 End stage renal disease; I21.4 Non-ST elevation (NSTEMI) myocardial infarction; J44.0 Chronic obstructive pulmonary disease with (acute) lower respiratory infection; J44.1 Chronic obstructive pulmonary disease with (acute) exacerbation; J96.10 Chronic respiratory failure, unspecified whether with hypoxia or hypercapnia; I13.2 Hypertensive heart and chronic kidney disease with heart failure and with stage 5 chronic kidney disease, or end stage renal disease; N25.81 Secondary hyperparathyroidism of renal origin; I42.9 Cardiomyopathy, unspecified; I48.92 Unspecified atrial flutter; Q21.1 Atrial septal defect; D63.1 Anemia in chronic kidney disease; E11.22 Type 2 diabetes mellitus with diabetic chronic kidney disease; E11.59 Type 2 diabetes mellitus with other circulatory complications; E11.65 Type 2 diabetes mellitus with hyperglycemia; E78.5 Hyperlipidemia, unspecified; F17.200 Nicotine dependence, unspecified, uncomplicated; I08.2 Rheumatic disorders of both aortic and tricuspid valves; I25.10 Atherosclerotic heart disease of native coronary artery without angina pectoris; I27.20 Pulmonary hypertension, unspecified; K80.20 Calculus of gallbladder without cholecystitis without obstruction; Y95 Nosocomial condition; Z79.4 Long term (current) use of insulin; Z95.1 Presence of aortocoronary bypass graft; Z99.2 Dependence on renal dialysis; R65.20 Severe sepsis without septic shock